=== PATIENT | female | born 1975 | race Caucasian/White ===

== ENCOUNTER 2017-09-30 12:45 | Outpatient (RCR) | payer BC, SELFPAY ==
[2017-09-23 15:43] VITALS: BP 115/71; PULSE 56; RESP 16; TEMP 36.4; BMI 38.7
--- NOTE | 2017-09-23 19:51 | PCM.WC.HP ---
(1) Laceration of left foot Status: Acute Current Visit: Yes Code(s): S91.312A - Laceration without foreign body, left foot, initial encounter (2) Cellulitis of left foot Status: Acute Current Visit: Yes Code(s): L03.116 - Cellulitis of left lower limb (3) Injury of left foot Status: Acute Current Visit: Yes Code(s): S99.922A - Unspecified injury of left foot, initial encounter (4) Arthritis Status: Chronic Current Visit: No Code(s): M19.90 - Unspecified osteoarthritis, unspecified site (5) Chronic back pain Status: Chronic Current Visit: No Code(s): M54.9 - Dorsalgia, unspecified; G89.29 - Other chronic pain (6) Hyperlipemia Status: Chronic Current Visit: No Code(s): E78.5 - Hyperlipidemia, unspecified (7) Obesity Status: Chronic Current Visit: No Code(s): E66.9 - Obesity, unspecified History of Present Illness Date of Service: 09/23/17 Chief Complaint: Left foot injury, stepped on deer antler. History of Wound: DANIEL BUCKLEY, is a 41 F who presents to the [facility] for evaluation of a laceration of her left plantar foot. She has a past medical history which is significant for that of chronic low back pain, arthritis, tobacco abuse, and hyperlipidemia. The patient states that she developed a laceration on her left bottom of her foot after stepping on a deer antler that her dog was chewing on on 09/19/2017. The patient states that the antler pierced the skin and she states that she was initially soaking her foot in Epsom salts and applying peroxide to the site with mild relief and after seeing PCP aplying triple ATB ointment on site. She has been taking Advil for the pain with mild relief. She states at rest it is a constant dull achy 4 out of 10 pain and with walking it is a 10 out of 10 pain. She does note that there is a yellow film over the wound, however denies any exudate or foul smelling. She denies any systemic complaints of fever, chills, nausea, vomiting, shortness of breath, chest pain or pressure, syncope or presyncopal episodes. She denies any other alleviating or aggravating symptoms. She saw her PCP on 09/22/2017 and an x-ray was performed which was negative, a wound culture was performed which showed staph aureus, and the patient was placed on Augmentin for cellulitis and updated on her Tdap vaccine. The patient states that the redness has improved, however the pain still persists Past Medical History Past Medical History: Chronic Problems (Last Reviewed 09/22/17 @ 10:15 by ROLY Perrin) Tobacco abuse (Chronic) Obesity (Chronic) Hyperlipemia (Chronic) Arthritis (Chronic) Chronic back pain (Chronic) Allergies/Adverse Reactions: Allergies No Known Allergies Allergy (Unverified 09/22/17 09:18) Home Medications: Ambulatory Orders Medication Instructions Recorded aspirin 81 mg chewable tablet 81 mg PO ONCE 09/22/17 ibuprofen 200 mg tablet 200 mg PO ONCE PRN 09/22/17 levofloxacin 500 mg tablet 500 mg PO Q24H 5 Days #5 tab 09/24/17 Lives: With Family Smoking Status: Current every day smoker Tobacco Use: Cigarettes Alcohol: Rare Drugs: None Review of Systems Constitutional: Denies: Chills, Fever, Weight Change Eyes: Denies: Pain, Vision Change HEENT: Denies: Difficulty Hearing, Difficulty Swallowing, Sinus Congestion Cardiovascular: Denies: Chest Pain, Palpitations Respiratory: Denies: Cough, Shortness of Breath Gastrointestinal: Denies: Diarrhea, Nausea, Vomiting Genitourinary: Denies: Dysuria, Hematuria Musculoskeletal: Reports: Foot Pain Skin: Reports: Wounds - See HPI Neurological: Reports: Numbness - Chronic numbness tingling right and left lower extremities, patient states MRI showed that she has herniated disks, Tingling Endocrine: Denies: Heat/ Cold Intolerance, Polydipsia, Polyuria Hematologic/ Lymphatic: Denies: Easy Bruising, Easy Bleeding - Physical Exam Vital Signs Temp Pulse Resp BP 97.5 F L 56 L 16 115/71 09/23/17 15:43 09/23/17 15:43 09/23/17 15:43 09/23/17 15:43 General: Alert, Oriented x3, Cooperative, No apparent distress HEENT: PERRLA, EOMI Lungs: Clear to auscultation Cardiovascular: Regular rate, Regular Rhythm Abdomen: Soft, Non Tender Extremities: No edema, Capillary Refill Less than 3 Seconds, Peripheral Pulses Normal - 1+ bilaterally, Tenderness - Left plantar foot Skin: Ulcer/ Wound - Wound present left plantar midfoot with moderate amount of slough and bioburden present Wound Measurements and Assessment WC - Nurse 1 - General Ulcer Measurement Start: 09/23/17 15:43 Freq: Status: Active Protocol: Activity Type Activity Date Activity User E-Sign Co-Sign Detail Recorded Client Recorded Date Recorded By Document 09/23/17 15:43 MW [id number] 09/23/17 16:08 MW 09/23/17 15:43 Wound Center Nurse 1 [Ulcer Assessment Protocol: LESIA.WD.LOC] #1 Left Foot arch -Combined with other wound No -Current Size (cm) - Length 1.6 -Current Size (cm) - Width 1.5 -Current Size (cm) - Depth 0.1 -Total Square Cm 2.40 -Date of Last Picture (Recall this 09/23/17 field) -Photo Taken Yes -Epithelialization Small 1-33% -Tunneling No -Undermining/Tunneling No -Circular Undermining No -Exudate Amt Small (1-33%) -Exudate Type Serosanguineous -Wound Margin Flat & Intact -Granulation Amt Large (67-100%) -Granulation Quality Red -Slough/Fibrin Yes -Necrosis Amt Small (1-33%) -Necrotic Tissue Type Adherent Slough -Structure Exposed N/A -Texture (Jocy-wound Skin Appearance) No Abnormality Assessed -Moisture (Jocy-wound Skin Appearance No Abnormality ) Assessed -Color (Jocy-wound Skin Appearance) Assessed Erythema -Temperature (Jocy-wound Skin No Abnormality Appearance) (Pt Warm) -Tenderness on Palpation (Jocy-wound Yes Skin Appearance) -Ulcer Cleansing Rinsed/ Irrigated with Saline -Anesthetic Used 5% Lidocaine Gel [Edema Assessment] -Lower Limb Edema Present No -Right Calf (cm) 42.5 -Right Ankle (cm) 23.5 -Left Calf (cm) 40.0 -Left Ankle (cm) 23.5 WC - Nurse 2 - General Ulcer CM Notes Start: 09/23/17 15:43 Freq: Status: Active Protocol: Activity Type Activity Date Activity User E-Sign Co-Sign Detail Recorded Client Recorded Date Recorded By Document 09/23/17 17:19 DV [id number] 09/23/17 17:24 DV 09/23/17 17:19 Wound Center Nurse 2 [Procedure/Treatment] #1 Left Foot arch -Time 17:22 -Correct Patient Yes -Correct Side, Site, Position Yes -Correct Procedure Yes -Procedure Performed Yes -Type of Procedure Debridement -Clinical Debridement Subcutaneous -Post Debridement Size (cm) - Length 1.0 -Post Debridement Size (cm) - Width 1.3 -Post Debridement Size (cm) - Depth 0.1 -Total Square Cm 1.30 -Wound/Ulcer Outcome Not Healed -Ulcer Cleansing Rinsed/ Irrigated with Saline -Foul Odor after Cleansing No -Bioengineered Tissue No -Cetacaine [place] No -Bleeding Controlled with Pressure -Treatment Response Procedure Tolerated Well [See Physician Procedure note for Specifics] Pain Scale: 0-10 Numeric [Pain] -Is Patient Pain Free? Yes Musculoskeletal: Tenderness - Left plantar foot Neurological: Cranial nerves II-XII grossly intact Psych/Mental Status: Normal Affect, Appropriate, Anxious, Alert and oriented to time, place, person, mood and affect Debridement Note Post-Debridement Measurements/Treatment WC - Nurse 2 - General Ulcer CM Notes Start: 09/23/17 15:43 Freq: Status: Active Protocol: Activity Type Activity Date Activity User E-Sign Co-Sign Detail Recorded Client Recorded Date Recorded By Document 09/23/17 17:19 DV [id number] 09/23/17 17:24 DV 09/23/17 17:19 Wound Center Nurse 2 #1 Left Foot arch -Time 17:22 -Correct Patient Yes -Correct Side, Site, Position Yes -Correct Procedure Yes -Procedure Performed Yes -Type of Procedure Debridement -Clinical Debridement Subcutaneous -Post Debridement Size (cm) - Length 1.0 -Post Debridement Size (cm) - Width 1.3 -Post Debridement Size (cm) - Depth 0.1 -Total Square Cm 1.30 -Wound/Ulcer Outcome Not Healed -Ulcer Cleansing Rinsed/ Irrigated with Saline -Foul Odor after Cleansing No -Bioengineered Tissue No -Cetacaine [place] No -Bleeding Controlled with Pressure -Treatment Response Procedure Tolerated Well Pain Scale: 0-10 Numeric Is Patient Pain Free? Yes Wound debrided: Left laceration plantar Laterality: Left Anesthesia Used: 4% Lidocaine Solution, 5% Lidocaine Gel Depth: Down to and including healthy tissue, in the subcutaneous layer Percentage of wound debrided: 100 Instrument Used: 5mm curette Tissue Removed: Slough, fibrin, and devitalized tissue Severity: Fat Layer Exposed Amount of bleeding with debridement: Mild Bleeding Controlled with: Pressure Patient tolerated procedure well Assessment/Plan Active Problems (Last Reviewed 09/22/17 @ 10:15 by Jose Wilson NP-C) Cellulitis of left foot (Acute) Laceration of left foot (Acute) Injury of left foot (Acute) Plan: The patient was seen and evaluated at the wound care center today. A subcutaneous debridement was performed and patient tolerated the procedure well. Reviewed documentation from PCP, x-ray was negative, culture showed staph aureus with resistance to penicillin and susceptibility to Levaquin. Given the patient's disproportionate pain level to wound, will change patient's antibiotic from Augmentin to Levaquin 500 mg daily for 5 days. Will also change wound care to Aquacel Ag silver dressings daily. Educated the patient on red flag symptoms of worsening cellulitis that would require urgent medical attention. However, cellulitis seems to be resolving at this time. Patient will follow up in 1 week. No indication for additional cultures or blood work at this time. Educated patient on the importance of increasing her dietary protein intake and decreasing her tobacco use as this delays wound healing. Ralf disclaimer Code Visit Office Visits / Consults: [id number] OV L3 Est [id number]: [id number] Mervat subq tissue 20 sq cm/<
[2017-09-30 13:04] VITALS: BP 107/63; PULSE 62; RESP 16; TEMP 37.4; BMI 38.7
--- NOTE | 2017-09-30 17:29 | PCM.WC.PN ---
(1) Laceration of left foot Status: Acute Current Visit: Yes Code(s): S91.312A - Laceration without foreign body, left foot, initial encounter (2) Cellulitis of left foot Status: Acute Current Visit: Yes Code(s): L03.116 - Cellulitis of left lower limb (3) Injury of left foot Status: Acute Current Visit: Yes Code(s): S99.922A - Unspecified injury of left foot, initial encounter (4) Arthritis Status: Chronic Current Visit: No Code(s): M19.90 - Unspecified osteoarthritis, unspecified site (5) Chronic back pain Status: Chronic Current Visit: No Code(s): M54.9 - Dorsalgia, unspecified; G89.29 - Other chronic pain (6) Hyperlipemia Status: Chronic Current Visit: No Code(s): E78.5 - Hyperlipidemia, unspecified (7) Obesity Status: Chronic Current Visit: No Code(s): E66.9 - Obesity, unspecified Type of Wound Date of Service: 09/30/17 Chief Complaint: Left foot injury, stepped on deer antler. History of Wound: DANIEL BUCKLEY, is a 41 F who presents to the [facility] for evaluation of a laceration of her left plantar foot. She has a past medical history which is significant for that of chronic low back pain, arthritis, tobacco abuse, and hyperlipidemia. The patient states that she developed a laceration on her left bottom of her foot after stepping on a deer antler that her dog was chewing on on 09/19/2017. The patient states that the antler pierced the skin and she states that she was initially soaking her foot in Epsom salts and applying peroxide to the site with mild relief and after seeing PCP aplying triple ATB ointment on site. She has been taking Advil for the pain with mild relief. She states at rest it is a constant dull achy 4 out of 10 pain and with walking it is a 10 out of 10 pain. She does note that there is a yellow film over the wound, however denies any exudate or foul smelling. She denies any systemic complaints of fever, chills, nausea, vomiting, shortness of breath, chest pain or pressure, syncope or presyncopal episodes. She denies any other alleviating or aggravating symptoms. She saw her PCP on 09/22/2017 and an x-ray was performed which was negative, a wound culture was performed which showed staph aureus, and the patient was placed on Augmentin for cellulitis and updated on her Tdap vaccine. The patient states that the redness has improved, however the pain still persists Progress of Wound: STable, improvement, patient continues to have pain at site. Though has not increased. - Physical Exam Vital Signs Temp Pulse Resp BP 99.3 F H 62 16 107/63 09/30/17 13:04 09/30/17 13:04 09/30/17 13:04 09/30/17 13:04 General: Alert, Oriented x3, Cooperative, No apparent distress HEENT: Atraumatic, Normocephalic Cardiovascular: Regular rate Extremities: No edema, Capillary Refill Less than 3 Seconds Skin: Ulcer/ Wound - left foot laceration, no signs of infection, improving Wound Measurements and Assessment WC - Nurse 1 - General Ulcer Measurement Start: 09/23/17 15:43 Freq: Status: Active Protocol: Activity Type Activity Date Activity User E-Sign Co-Sign Detail Recorded Client Recorded Date Recorded By Document 09/30/17 13:04 MW [id number] 09/30/17 13:12 MW 09/30/17 13:04 Wound Center Nurse 1 [Ulcer Assessment Protocol: WC.WD.LOC] #1 Left Foot arch -Combined with other wound No -Current Size (cm) - Length 1.5 -Current Size (cm) - Width 0.9 -Current Size (cm) - Depth 0.1 -Total Square Cm 1.35 -Photo Taken No -Epithelialization None Present -Tunneling No -Undermining/Tunneling No -Circular Undermining No -Exudate Amt Small (1-33%) -Exudate Type Serosanguineous -Wound Margin Flat & Intact -Granulation Amt None Present (0 %) -Granulation Quality N/A -Slough/Fibrin Yes -Necrosis Amt Large (67-100%) -Necrotic Tissue Type Adherent Slough -Structure Exposed N/A -Texture (Jocy-wound Skin Appearance) Assessed -Moisture (Jocy-wound Skin Appearance Assessed ) Dry/Scaly -Color (Jocy-wound Skin Appearance) No Abnormality Assessed -Temperature (Jocy-wound Skin No Abnormality Appearance) (Pt Warm) -Tenderness on Palpation (Jocy-wound No Skin Appearance) -Ulcer Cleansing Rinsed/ Irrigated with Saline -Foul Odor after Cleansing No -Anesthetic Used 5% Lidocaine Gel [Edema Assessment] -Lower Limb Edema Present No WC - Nurse 2 - General Ulcer CM Notes Start: 09/23/17 15:43 Freq: Status: Active Protocol: Activity Type Activity Date Activity User E-Sign Co-Sign Detail Recorded Client Recorded Date Recorded By Document 09/30/17 13:37 DV [id number] 09/30/17 13:40 DV 09/30/17 13:37 Wound Center Nurse 2 [Procedure/Treatment] #1 Left Foot arch -Time 13:38 -Correct Patient Yes -Correct Side, Site, Position Yes -Correct Procedure Yes -Procedure Performed Yes -Type of Procedure Debridement -Clinical Debridement Subcutaneous -Post Debridement Size (cm) - Length 0.5 -Post Debridement Size (cm) - Width 0.8 -Post Debridement Size (cm) - Depth 0.1 -Total Square Cm 0.40 -Wound/Ulcer Outcome Not Healed -Ulcer Cleansing Rinsed/ Irrigated with Saline -Foul Odor after Cleansing No -Bioengineered Tissue No -Cetacaine [place] No -Bleeding Controlled with Pressure -Treatment Response Procedure Tolerated Well [See Physician Procedure note for Specifics] Pain Scale: 0-10 Numeric [Pain] -Is Patient Pain Free? Yes Musculoskeletal: No Tenderness to Palpation of Joints or Extremities Neurological: Cranial nerves II-XII grossly intact Psych/Mental Status: Anxious, Alert and oriented to time, place, person, mood and affect Debridement Note Post-Debridement Measurements/Treatment - Nurse 2 - General Ulcer CM Notes Start: 09/23/17 15:43 Freq: Status: Active Protocol: Activity Type Activity Date Activity User E-Sign Co-Sign Detail Recorded Client Recorded Date Recorded By Document 09/23/17 17:19 DV [id number] 09/23/17 17:24 DV Document 09/30/17 13:37 DV [id number] 09/30/17 13:40 DV 09/23/17 09/30/17 17:19 13:37 Wound Center Nurse 2 #1 Left Foot arch -Time 17:22 13:38 -Correct Patient Yes Yes -Correct Side, Site, Position Yes Yes -Correct Procedure Yes Yes -Procedure Performed Yes Yes -Type of Procedure Debridement Debridement -Clinical Debridement Subcutaneous Subcutaneous -Post Debridement Size (cm) - Length 1.0 0.5 -Post Debridement Size (cm) - Width 1.3 0.8 -Post Debridement Size (cm) - Depth 0.1 0.1 -Total Square Cm 1.30 0.40 -Wound/Ulcer Outcome Not Healed Not Healed -Ulcer Cleansing Rinsed/ Rinsed/ Irrigated with Irrigated with Saline Saline -Foul Odor after Cleansing No No -Bioengineered Tissue No No -Cetacaine [place] No No -Bleeding Controlled with Pressure Pressure -Treatment Response Procedure Procedure Tolerated Well Tolerated Well Pain Scale: 0-10 Numeric Is Patient Pain Free? Yes Yes Wound debrided: Left foot laceration Laterality: Left Type of Debridement: Excisional debridement Anesthesia Used: 5% Lidocaine Gel Depth: Down to and including healthy tissue, in the subcutaneous layer Percentage of wound debrided: 100 Instrument Used: 5mm curette, #15 blade, Forceps Tissue Removed: slough and fibrin Severity: Fat Layer Exposed Amount of bleeding with debridement: Mild Bleeding Controlled with: Pressure Patient tolerated procedure well Assessment/Plan Active Problems (Last Reviewed 09/22/17 @ 10:15 by Jose Wilson NP-C) Cellulitis of left foot (Acute) Laceration of left foot (Acute) Injury of left foot (Acute) Assessment: Wound is stable and improving Plan: The patient was seen and evaluated at the wound care center today and updated on plan of care. A subcutaneous debridement was performed and patient tolerated the procedure well. Reviewed documentation from PCP, x-ray was negative, culture showed staph aureus with resistance to penicillin and susceptibility to Levaquin. Given the patient's disproportionate pain level to wound, changed patient's antibiotic from Augmentin to Levaquin 500 mg daily for 5 day, pt completed course. Given the area of necrotic tissue in the center of the wound that patient did not allow me to do pretty today due to her low pain tolerance, will change her to Santyl dressings twice daily with covered gauze. The patient states that due to her work, she is on her feet for 12 hours a day and she thinks that this is attributing to why the wound is so painful and not healing as fast. The patient's cellulitis is entirely resolved at this time. Educated the patient on red flag symptoms of worsening cellulitis that would require urgent medical attention. Patient will follow up in 1 week. No indication for additional cultures or blood work at this time. Educated patient on the importance of increasing her dietary protein intake and decreasing her tobacco use as this delays wound healing. Ralf disclaimer Code Visit [id number]-[id number]: [id number] Mervat subq tissue 20 sq cm/<
== END 2017-10-06 23:59 ==
LOC: WC 12:45
PROVIDERS: Family Provider Internal Medicine; PCP Internal Medicine; Visit Provider Nurse Practitioner Family
DX: S91.312A Laceration without foreign body, left foot, initial encounter (principal); W22.8XXA Striking against or struck by other objects, initial encounter; Y93.89 Activity, other specified; L03.116 Cellulitis of left lower limb; M19.90 Unspecified osteoarthritis, unspecified site; G89.29 Other chronic pain; E78.5 Hyperlipidemia, unspecified; M54.5 Low back pain; E66.9 Obesity, unspecified; Z68.38 Body mass index [BMI] 38.0-38.9, adult; Z71.3 Dietary counseling and surveillance; Z72.0 Tobacco use
CPT/HCPCS: 11042; 99213; G0463

== ENCOUNTER 2017-10-27 12:30 | Outpatient (RCR) | payer BC, SELFPAY ==
[2017-09-30 13:04] VITALS: BP 107/63
[2017-10-07 01:13] VITALS: PULSE 62; RESP 16; TEMP 37.4
[2017-10-07 12:49] VITALS: BP 132/66; PULSE 59; RESP 16; TEMP 37; BMI 38.7
--- NOTE | 2017-10-07 16:59 | PCM.WC.PN ---
(1) Non-healing ulcer of left foot with fat layer exposed Status: Acute Current Visit: Yes Code(s): L97.522 - Non-pressure chronic ulcer of other part of left foot with fat layer exposed (2) Hyperlipemia Status: Chronic Current Visit: No Code(s): E78.5 - Hyperlipidemia, unspecified (3) Obesity Status: Chronic Current Visit: No Code(s): E66.9 - Obesity, unspecified (4) Tobacco abuse Status: Chronic Current Visit: No Code(s): Z72.0 - Tobacco use Type of Wound Date of Service: 10/07/17 Chief Complaint: Left foot injury, stepped on deer antler. History of Wound: DANIEL BUCKLEY, is a 41 F who presents to the [facility] for evaluation of a laceration of her left plantar foot. She has a past medical history which is significant for that of chronic low back pain, arthritis, tobacco abuse, and hyperlipidemia. The patient states that she developed a laceration on her left bottom of her foot after stepping on a deer antler that her dog was chewing on on 09/19/2017. The patient states that the antler pierced the skin and she states that she was initially soaking her foot in Epsom salts and applying peroxide to the site with mild relief and after seeing PCP aplying triple ATB ointment on site. She has been taking Advil for the pain with mild relief. She states at rest it is a constant dull achy 4 out of 10 pain and with walking it is a 10 out of 10 pain. She does note that there is a yellow film over the wound, however denies any exudate or foul smelling. She denies any systemic complaints of fever, chills, nausea, vomiting, shortness of breath, chest pain or pressure, syncope or presyncopal episodes. She denies any other alleviating or aggravating symptoms. She saw her PCP on 09/22/2017 and an x-ray was performed which was negative, a wound culture was performed which showed staph aureus, and the patient was placed on Augmentin for cellulitis and updated on her Tdap vaccine. The patient states that the redness has improved, however the pain still persists Progress of Wound: stable, wound improving, pain resolved. The patient denies any fever, chills, nausea, vomiting, shortness of breath, chest pain or pressure, syncope or presyncopal episodes. Objective: anxious, refused debridement - Physical Exam Vital Signs Temp Pulse Resp BP 98.6 F 59 L 16 132/66 H 10/07/17 12:49 10/07/17 12:49 10/07/17 12:49 10/07/17 12:49 General: Alert, Oriented x3, Cooperative, No apparent distress HEENT: PERRLA, EOMI Cardiovascular: Regular rate Extremities: No clubbing, No cyanosis, No edema, Capillary Refill Less than 3 Seconds Skin: Ulcer/ Wound - Left plantar surface, ulceration present with slough present, pt refused provider to debride d/t anxiety, during exam pt did use forceps to lift the layer of slough off however and a healthy moist wound bed was present Wound Measurements and Assessment - Nurse 1 - General Ulcer Measurement Start: 10/07/17 12:49 Freq: Status: Active Protocol: Activity Type Activity Date Activity User E-Sign Co-Sign Detail Recorded Client Recorded Date Recorded By Document 10/07/17 12:49 [facility] [id number] 10/07/17 12:59 [facility] 10/07/17 12:49 Wound Center Nurse 1 [Ulcer Assessment Protocol: LESIA.WD.LOC] #1 Left Foot arch -Combined with other wound No -Current Size (cm) - Length 0.4 -Current Size (cm) - Width 1.0 -Current Size (cm) - Depth 0.1 -Total Square Cm 0.40 -Photo Taken Yes -Epithelialization None Present -Tunneling No -Undermining/Tunneling No -Exudate Amt Small (1-33%) -Exudate Type Serous -Wound Margin Distinct, Outline Attached -Granulation Amt None Present (0 %) -Slough/Fibrin Yes -Necrosis Amt Large (67-100%) -Necrotic Tissue Type Adherent Slough -Structure Exposed N/A -Texture (Jocy-wound Skin Appearance) Assessed -Moisture (Jocy-wound Skin Appearance Assessed ) -Color (Jocy-wound Skin Appearance) Assessed -Temperature (Jocy-wound Skin No Abnormality Appearance) (Pt Warm) -Tenderness on Palpation (Jocy-wound Yes Skin Appearance) -Ulcer Cleansing Rinsed/ Irrigated with Saline -Foul Odor after Cleansing No WC - Nurse 2 - General Ulcer CM Notes Start: 10/07/17 12:49 Freq: Status: Active Protocol: Activity Type Activity Date Activity User E-Sign Co-Sign Detail Recorded Client Recorded Date Recorded By Document 10/07/17 13:34 DV [id number] 10/07/17 13:36 DV 10/07/17 13:34 Wound Center Nurse 2 [Procedure/Treatment] -Time 13:35 -Correct Patient Yes -Procedure Performed No -Post Debridement Size (cm) - Length 0.8 -Post Debridement Size (cm) - Width 1.4 -Post Debridement Size (cm) - Depth 0.1 -Total Square Cm 1.12 -Wound/Ulcer Outcome Not Healed [See Physician Procedure note for Specifics] Pain Scale: 0-10 Numeric [Pain] -Is Patient Pain Free? Yes Neurological: Cranial nerves II-XII grossly intact Psych/Mental Status: Anxious, Alert and oriented to time, place, person, mood and affect Debridement Note Post-Debridement Measurements/Treatment WC - Nurse 2 - General Ulcer CM Notes Start: 10/07/17 12:49 Freq: Status: Active Protocol: Activity Type Activity Date Activity User E-Sign Co-Sign Detail Recorded Client Recorded Date Recorded By Document 10/07/17 13:34 DV [id number] 10/07/17 13:36 DV 10/07/17 13:34 Wound Center Nurse 2 #1 Left Foot arch -Time 13:35 -Correct Patient Yes -Procedure Performed No -Post Debridement Size (cm) - Length 0.8 -Post Debridement Size (cm) - Width 1.4 -Post Debridement Size (cm) - Depth 0.1 -Total Square Cm 1.12 -Wound/Ulcer Outcome Not Healed Pain Scale: 0-10 Numeric Is Patient Pain Free? Yes No debridement was completed today Assessment/Plan Active Problems (Last Reviewed 09/22/17 @ 10:15 by Jose Wilson NP-C) Non-healing ulcer of left foot with fat layer exposed (Acute) Assessment: Wound is stable and improving, pt using her sisters hydrogel d/t cost Plan: The patient was seen and evaluated at the wound care center today and updated on plan of care. Reviewed documentation from PCP, x-ray was negative, culture showed staph aureus with resistance to penicillin and susceptibility to Levaquin, pt completed course. Patient removed layer of slough in the center with forceps in the exam room, pt refused provider debridement. The patient was given a work excuse for today The patient's cellulitis is entirely resolved at this time. Educated the patient on red flag symptoms of worsening cellulitis that would require urgent medical attention. Patient will follow up in 1 week. No indication for additional cultures or blood work at this time. Educated patient on the importance of increasing her dietary protein intake and decreasing her tobacco use as this delays wound healing. She will continue using hydrogel and gauze to the area. RTC in 1 week. Ralf disclaimer Code Visit Office Visits / Consults: [id number] OV L3 Est
--- NOTE | 2017-10-07 17:09 | PN.PCM_ITS ---
(1) Non-healing ulcer of left foot with fat layer exposed Status: Acute Current Visit: Yes Code(s): L97.522 - Non-pressure chronic ulcer of other part of left foot with fat layer exposed (2) Hyperlipemia Status: Chronic Current Visit: No Code(s): E78.5 - Hyperlipidemia, unspecified (3) Obesity Status: Chronic Current Visit: No Code(s): E66.9 - Obesity, unspecified (4) Tobacco abuse Status: Chronic Current Visit: No Code(s): Z72.0 - Tobacco use Type of Wound Date of Service: 10/07/17 Chief Complaint: Left foot injury, stepped on deer antler. History of Wound: DANIEL BUCKLEY, is a 41 F who presents to the [facility] for evaluation of a laceration of her left plantar foot. She has a past medical history which is significant for that of chronic low back pain, arthritis, tobacco abuse, and hyperlipidemia. The patient states that she developed a laceration on her left bottom of her foot after stepping on a deer antler that her dog was chewing on on 09/19/2017. The patient states that the antler pierced the skin and she states that she was initially soaking her foot in Epsom salts and applying peroxide to the site with mild relief and after seeing PCP aplying triple ATB ointment on site. She has been taking Advil for the pain with mild relief. She states at rest it is a constant dull achy 4 out of 10 pain and with walking it is a 10 out of 10 pain. She does note that there is a yellow film over the wound, however denies any exudate or foul smelling. She denies any systemic complaints of fever, chills, nausea, vomiting, shortness of breath, chest pain or pressure, syncope or presyncopal episodes. She denies any other alleviating or aggravating symptoms. She saw her PCP on 09/22/2017 and an x-ray was performed which was negative, a wound culture was performed which showed staph aureus, and the patient was placed on Augmentin for cellulitis and updated on her Tdap vaccine. The patient states that the redness has improved, however the pain still persists Progress of Wound: stable, wound improving, pain resolved. The patient denies any fever, chills, nausea, vomiting, shortness of breath, chest pain or pressure , syncope or presyncopal episodes. Objective: anxious, refused debridement - Physical Exam Vital Signs Temp Pulse Resp BP 98.6 F 59 L 16 132/66 H 10/07/17 12:49 10/07/17 12:49 10/07/17 12:49 10/07/17 12:49 General: Alert, Oriented x3, Cooperative, No apparent distress HEENT: PERRLA, EOMI Cardiovascular: Regular rate Extremities: No clubbing, No cyanosis, No edema, Capillary Refill Less than 3 Seconds Skin: Ulcer/ Wound - Left plantar surface, ulceration present with slough present, pt refused provider to debride d/t anxiety, during exam pt did use forceps to lift the layer of slough off however and a healthy moist wound bed was present Wound Measurements and Assessment - Nurse 1 - General Ulcer Measurement Start: 10/07/17 12:49 Freq: Status: Active Protocol: Activity Type Activity Date Activity User E-Sign Co-Sign Detail Recorded Client Recorded Date Recorded By Document 10/07/17 12:49 [facility] [id number] 10/07/17 12:59 [facility] 10/07/17 12:49 Wound Center Nurse 1 [Ulcer Assessment Protocol: LESIA.WD.LOC] #1 Left Foot arch -Combined with other wound No -Current Size (cm) - Length 0.4 -Current Size (cm) - Width 1.0 -Current Size (cm) - Depth 0.1 -Total Square Cm 0.40 -Photo Taken Yes -Epithelialization None Present -Tunneling No -Undermining/Tunneling No -Exudate Amt Small (1-33%) -Exudate Type Serous -Wound Margin Distinct, Outline Attached -Granulation Amt None Present (0 %) -Slough/Fibrin Yes -Necrosis Amt Large (67-100%) -Necrotic Tissue Type Adherent Slough -Structure Exposed N/A -Texture (Jocy-wound Skin Appearance) Assessed -Moisture (Jocy-wound Skin Appearance Assessed ) -Color (Jocy-wound Skin Appearance) Assessed -Temperature (Jocy-wound Skin No Abnormality Appearance) (Pt Warm) -Tenderness on Palpation (Jocy-wound Yes Skin Appearance) -Ulcer Cleansing Rinsed/ Irrigated with Saline -Foul Odor after Cleansing No WC - Nurse 2 - General Ulcer CM Notes Start: 10/07/17 12:49 Freq: Status: Active Protocol: Activity Type Activity Date Activity User E-Sign Co-Sign Detail Recorded Client Recorded Date Recorded By Document 10/07/17 13:34 DV [id number] 10/07/17 13:36 DV 10/07/17 13:34 Wound Center Nurse 2 [Procedure/Treatment] -Time 13:35 -Correct Patient Yes -Procedure Performed No -Post Debridement Size (cm) - Length 0.8 -Post Debridement Size (cm) - Width 1.4 -Post Debridement Size (cm) - Depth 0.1 -Total Square Cm 1.12 -Wound/Ulcer Outcome Not Healed [See Physician Procedure note for Specifics] Pain Scale: 0-10 Numeric [Pain] -Is Patient Pain Free? Yes Neurological: Cranial nerves II-XII grossly intact Psych/Mental Status: Anxious, Alert and oriented to time, place, person, mood and affect Debridement Note Post-Debridement Measurements/Treatment WC - Nurse 2 - General Ulcer CM Notes Start: 10/07/17 12:49 Freq: Status: Active Protocol: Activity Type Activity Date Activity User E-Sign Co-Sign Detail Recorded Client Recorded Date Recorded By Document 10/07/17 13:34 DV [id number] 10/07/17 13:36 DV 10/07/17 13:34 Wound Center Nurse 2 #1 Left Foot arch -Time 13:35 -Correct Patient Yes -Procedure Performed No -Post Debridement Size (cm) - Length 0.8 -Post Debridement Size (cm) - Width 1.4 -Post Debridement Size (cm) - Depth 0.1 -Total Square Cm 1.12 -Wound/Ulcer Outcome Not Healed Pain Scale: 0-10 Numeric Is Patient Pain Free? Yes No debridement was completed today Assessment/Plan Active Problems (Last Reviewed 09/22/17 @ 10:15 by Jose Wilson NP-C) Non-healing ulcer of left foot with fat layer exposed (Acute) Assessment: Wound is stable and improving, pt using her sisters hydrogel d/t cost Plan: The patient was seen and evaluated at the wound care center today and updated on plan of care. Reviewed documentation from PCP, x-ray was negative, culture showed staph aureus with resistance to penicillin and susceptibility to Levaquin, pt completed course. Patient removed layer of slough in the center with forceps in the exam room, pt refused provider debridement. The patient was given a work excuse for today The patient's cellulitis is entirely resolved at this time. Educated the patient on red flag symptoms of worsening cellulitis that would require urgent medical attention. Patient will follow up in 1 week. No indication for additional cultures or blood work at this time. Educated patient on the importance of increasing her dietary protein intake and decreasing her tobacco use as this delays wound healing. She will continue using hydrogel and gauze to the area. RTC in 1 week. Ralf disclaimer Code Visit Office Visits / Consults: [id number] OV L3 Est
[2017-10-20 08:18] VITALS: BP 106/60; PULSE 88; RESP 18; TEMP 36.3; BMI 38.7
--- NOTE | 2017-10-20 09:31 | PCM.WC.PN ---
(1) Non-healing ulcer of left foot with fat layer exposed Status: Acute Current Visit: Yes Code(s): L97.522 - Non-pressure chronic ulcer of other part of left foot with fat layer exposed (2) Injury of left foot Status: Acute Current Visit: No Code(s): S99.922A - Unspecified injury of left foot, initial encounter (3) Laceration of left foot Status: Acute Current Visit: No Code(s): S91.312A - Laceration without foreign body, left foot, initial encounter Type of Wound Date of Service: 10/20/17 Chief Complaint: Left foot injury, stepped on deer antler. History of Wound: DANIEL BUCKLEY, is a 41 F who presents to the [facility] for evaluation of a laceration of her left plantar foot. She has a past medical history which is significant for that of chronic low back pain, arthritis, tobacco abuse, and hyperlipidemia. The patient states that she developed a laceration on her left bottom of her foot after stepping on a deer antler that her dog was chewing on on 09/19/2017. The patient states that the antler pierced the skin and she states that she was initially soaking her foot in Epsom salts and applying peroxide to the site with mild relief and after seeing PCP aplying triple ATB ointment on site. She has been taking Advil for the pain with mild relief. She states at rest it is a constant dull achy 4 out of 10 pain and with walking it is a 10 out of 10 pain. She does note that there is a yellow film over the wound, however denies any exudate or foul smelling. She denies any systemic complaints of fever, chills, nausea, vomiting, shortness of breath, chest pain or pressure, syncope or presyncopal episodes. She denies any other alleviating or aggravating symptoms. She saw her PCP on 09/22/2017 and an x-ray was performed which was negative, a wound culture was performed which showed staph aureus, and the patient was placed on Augmentin for cellulitis and updated on her Tdap vaccine. The patient states that the redness has improved, however the pain still persists Progress of Wound: Improving. - Physical Exam Vital Signs Temp Pulse Resp BP 97.3 F L 88 18 106/60 10/20/17 08:18 10/20/17 08:18 10/20/17 08:18 10/20/17 08:18 General: Alert, Oriented x3, Cooperative, No apparent distress HEENT: Atraumatic, Normocephalic Oral: Moist Mucosa Neck: Supple Lungs: Normal air movement Cardiovascular: Regular rate Skin: Ulcer/ Wound Wound Measurements and Assessment WC - Nurse 1 - General Ulcer Measurement Start: 10/07/17 12:49 Freq: Status: Active Protocol: Activity Type Activity Date Activity User E-Sign Co-Sign Detail Recorded Client Recorded Date Recorded By Document 10/20/17 08:18 RB [id number] 10/20/17 08:30 RB 10/20/17 08:18 Wound Center Nurse 1 [Ulcer Assessment Protocol: LESIA.WD.LOC] #1 Left Foot arch -Combined with other wound No -Current Size (cm) - Length 0.1 -Current Size (cm) - Width 0.9 -Current Size (cm) - Depth 0.1 -Total Square Cm 0.09 -Photo Taken No -Epithelialization Small 1-33% -Tunneling No -Undermining/Tunneling No -Circular Undermining No -Classification - Thickness Full Thickness without Exposed Support Structure -Exudate Amt Small (1-33%) -Exudate Type Serosanguineous -Wound Margin Distinct, Outline Attached -Granulation Amt Medium (34-66%) -Granulation Quality [place] -Slough/Fibrin Yes -Necrosis Amt Small (1-33%) -Necrotic Tissue Type Adherent Slough -Structure Exposed N/A -Texture (Jocy-wound Skin Appearance) Assessed -Moisture (Jocy-wound Skin Appearance Assessed ) -Color (Jocy-wound Skin Appearance) Assessed -Temperature (Jocy-wound Skin No Abnormality Appearance) (Pt Warm) -Tenderness on Palpation (Jocy-wound No Skin Appearance) -Ulcer Cleansing Rinsed/ Irrigated with Saline -Foul Odor after Cleansing No -Anesthetic Used 5% Lidocaine Gel WC - Nurse 2 - General Ulcer CM Notes Start: 10/07/17 12:49 Freq: Status: Active Protocol: Activity Type Activity Date Activity User E-Sign Co-Sign Detail Recorded Client Recorded Date Recorded By Document 10/20/17 09:04 DV [id number] 10/20/17 09:09 DV 10/20/17 09:04 Wound Center Nurse 2 [Procedure/Treatment] -Time 09:07 -Correct Patient Yes -Correct Side, Site, Position Yes -Correct Procedure Yes -Procedure Performed Yes -Type of Procedure Debridement -Clinical Debridement Subcutaneous -Post Debridement Size (cm) - Length 0.1 -Post Debridement Size (cm) - Width 0.7 -Post Debridement Size (cm) - Depth 0.1 -Total Square Cm 0.07 -Wound/Ulcer Outcome Not Healed -Ulcer Cleansing Rinsed/ Irrigated with Saline -Foul Odor after Cleansing No -Bioengineered Tissue No -Bleeding Controlled with Pressure -Treatment Response Procedure Tolerated Well [See Physician Procedure note for Specifics] Pain Scale: 0-10 Numeric [Pain] -Is Patient Pain Free? Yes Musculoskeletal: No Muscle Wasting Neurological: Cranial nerves II-XII grossly intact Psych/Mental Status: Normal Affect Debridement Note Post-Debridement Measurements/Treatment WC - Nurse 2 - General Ulcer CM Notes Start: 10/07/17 12:49 Freq: Status: Active Protocol: Activity Type Activity Date Activity User E-Sign Co-Sign Detail Recorded Client Recorded Date Recorded By Document 10/07/17 13:34 DV [id number] 10/07/17 13:36 DV Document 10/20/17 09:04 DV [id number] 10/20/17 09:09 DV 10/07/17 10/20/17 13:34 09:04 Wound Center Nurse 2 #1 Left Foot arch -Time 13:35 09:07 -Correct Patient Yes Yes -Correct Side, Site, Position Yes -Correct Procedure Yes -Procedure Performed No Yes -Type of Procedure Debridement -Clinical Debridement Subcutaneous -Post Debridement Size (cm) - Length 0.8 0.1 -Post Debridement Size (cm) - Width 1.4 0.7 -Post Debridement Size (cm) - Depth 0.1 0.1 -Total Square Cm 1.12 0.07 -Wound/Ulcer Outcome Not Healed Not Healed -Ulcer Cleansing Rinsed/ Irrigated with Saline -Foul Odor after Cleansing No -Bioengineered Tissue No -Bleeding Controlled with Pressure -Treatment Response Procedure Tolerated Well Pain Scale: 0-10 Numeric Is Patient Pain Free? Yes Yes Wound debrided: Left foot plantar ulcer Wound Grade/Stage: Stage II Type of Debridement: Excisional debridement Anesthesia Used: 5% Lidocaine Gel Depth: Down to and including healthy tissue Percentage of wound debrided: 100 Instrument Used: 7mm curette Tissue Removed: Slough Severity: Limited To Skin Breakdown Amount of bleeding with debridement: Mild Bleeding Controlled with: Pressure Patient tolerated procedure well Assessment/Plan Active Problems (Last Reviewed 09/22/17 @ 10:15 by Jose Wilson NP-C) Non-healing ulcer of left foot with fat layer exposed (Acute) Assessment: Left Plantar Foot Ulcer. Improving. Plan: Wound debridement done today. Procedure was well tolerated. Wound has shown good progress. Will switch dressing over to moistened promogram applied daily. Cover with guaze. Continue increased protein intake. Off load area. Follow up in 1 week. This note was generated with [employer] dictation software. It may contain incorrect words, spelling, and punctuation that were not noted in checking the note before signing.
--- NOTE | 2017-10-20 09:41 | PN.PCM_ITS ---
(1) Non-healing ulcer of left foot with fat layer exposed Status: Acute Current Visit: Yes Code(s): L97.522 - Non-pressure chronic ulcer of other part of left foot with fat layer exposed (2) Injury of left foot Status: Acute Current Visit: No Code(s): S99.922A - Unspecified injury of left foot, initial encounter (3) Laceration of left foot Status: Acute Current Visit: No Code(s): S91.312A - Laceration without foreign body, left foot, initial encounter Type of Wound Date of Service: 10/20/17 Chief Complaint: Left foot injury, stepped on deer antler. History of Wound: DANIEL BUCKLEY, is a 41 F who presents to the [facility] for evaluation of a laceration of her left plantar foot. She has a past medical history which is significant for that of chronic low back pain, arthritis, tobacco abuse, and hyperlipidemia. The patient states that she developed a laceration on her left bottom of her foot after stepping on a deer antler that her dog was chewing on on 09/19/2017. The patient states that the antler pierced the skin and she states that she was initially soaking her foot in Epsom salts and applying peroxide to the site with mild relief and after seeing PCP aplying triple ATB ointment on site. She has been taking Advil for the pain with mild relief. She states at rest it is a constant dull achy 4 out of 10 pain and with walking it is a 10 out of 10 pain. She does note that there is a yellow film over the wound, however denies any exudate or foul smelling. She denies any systemic complaints of fever, chills, nausea, vomiting, shortness of breath, chest pain or pressure, syncope or presyncopal episodes. She denies any other alleviating or aggravating symptoms. She saw her PCP on 09/22/2017 and an x-ray was performed which was negative, a wound culture was performed which showed staph aureus, and the patient was placed on Augmentin for cellulitis and updated on her Tdap vaccine. The patient states that the redness has improved, however the pain still persists Progress of Wound: Improving. - Physical Exam Vital Signs Temp Pulse Resp BP 97.3 F L 88 18 106/60 10/20/17 08:18 10/20/17 08:18 10/20/17 08:18 10/20/17 08:18 General: Alert, Oriented x3, Cooperative, No apparent distress HEENT: Atraumatic, Normocephalic Oral: Moist Mucosa Neck: Supple Lungs: Normal air movement Cardiovascular: Regular rate Skin: Ulcer/ Wound Wound Measurements and Assessment WC - Nurse 1 - General Ulcer Measurement Start: 10/07/17 12:49 Freq: Status: Active Protocol: Activity Type Activity Date Activity User E-Sign Co-Sign Detail Recorded Client Recorded Date Recorded By Document 10/20/17 08:18 RB [id number] 10/20/17 08:30 RB 10/20/17 08:18 Wound Center Nurse 1 [Ulcer Assessment Protocol: LESIA.WD.LOC] #1 Left Foot arch -Combined with other wound No -Current Size (cm) - Length 0.1 -Current Size (cm) - Width 0.9 -Current Size (cm) - Depth 0.1 -Total Square Cm 0.09 -Photo Taken No -Epithelialization Small 1-33% -Tunneling No -Undermining/Tunneling No -Circular Undermining No -Classification - Thickness Full Thickness without Exposed Support Structure -Exudate Amt Small (1-33%) -Exudate Type Serosanguineous -Wound Margin Distinct, Outline Attached -Granulation Amt Medium (34-66%) -Granulation Quality [place] -Slough/Fibrin Yes -Necrosis Amt Small (1-33%) -Necrotic Tissue Type Adherent Slough -Structure Exposed N/A -Texture (Jocy-wound Skin Appearance) Assessed -Moisture (Jocy-wound Skin Appearance Assessed ) -Color (Jocy-wound Skin Appearance) Assessed -Temperature (Jocy-wound Skin No Abnormality Appearance) (Pt Warm) -Tenderness on Palpation (Jocy-wound No Skin Appearance) -Ulcer Cleansing Rinsed/ Irrigated with Saline -Foul Odor after Cleansing No -Anesthetic Used 5% Lidocaine Gel WC - Nurse 2 - General Ulcer CM Notes Start: 10/07/17 12:49 Freq: Status: Active Protocol: Activity Type Activity Date Activity User E-Sign Co-Sign Detail Recorded Client Recorded Date Recorded By Document 10/20/17 09:04 DV [id number] 10/20/17 09:09 DV 10/20/17 09:04 Wound Center Nurse 2 [Procedure/Treatment] -Time 09:07 -Correct Patient Yes -Correct Side, Site, Position Yes -Correct Procedure Yes -Procedure Performed Yes -Type of Procedure Debridement -Clinical Debridement Subcutaneous -Post Debridement Size (cm) - Length 0.1 -Post Debridement Size (cm) - Width 0.7 -Post Debridement Size (cm) - Depth 0.1 -Total Square Cm 0.07 -Wound/Ulcer Outcome Not Healed -Ulcer Cleansing Rinsed/ Irrigated with Saline -Foul Odor after Cleansing No -Bioengineered Tissue No -Bleeding Controlled with Pressure -Treatment Response Procedure Tolerated Well [See Physician Procedure note for Specifics] Pain Scale: 0-10 Numeric [Pain] -Is Patient Pain Free? Yes Musculoskeletal: No Muscle Wasting Neurological: Cranial nerves II-XII grossly intact Psych/Mental Status: Normal Affect Debridement Note Post-Debridement Measurements/Treatment WC - Nurse 2 - General Ulcer CM Notes Start: 10/07/17 12:49 Freq: Status: Active Protocol: Activity Type Activity Date Activity User E-Sign Co-Sign Detail Recorded Client Recorded Date Recorded By Document 10/07/17 13:34 DV [id number] 10/07/17 13:36 DV Document 10/20/17 09:04 DV [id number] 10/20/17 09:09 DV 10/07/17 10/20/17 13:34 09:04 Wound Center Nurse 2 #1 Left Foot arch -Time 13:35 09:07 -Correct Patient Yes Yes -Correct Side, Site, Position Yes -Correct Procedure Yes -Procedure Performed No Yes -Type of Procedure Debridement -Clinical Debridement Subcutaneous -Post Debridement Size (cm) - Length 0.8 0.1 -Post Debridement Size (cm) - Width 1.4 0.7 -Post Debridement Size (cm) - Depth 0.1 0.1 -Total Square Cm 1.12 0.07 -Wound/Ulcer Outcome Not Healed Not Healed -Ulcer Cleansing Rinsed/ Irrigated with Saline -Foul Odor after Cleansing No -Bioengineered Tissue No -Bleeding Controlled with Pressure -Treatment Response Procedure Tolerated Well Pain Scale: 0-10 Numeric Is Patient Pain Free? Yes Yes Wound debrided: Left foot plantar ulcer Wound Grade/Stage: Stage II Type of Debridement: Excisional debridement Anesthesia Used: 5% Lidocaine Gel Depth: Down to and including healthy tissue Percentage of wound debrided: 100 Instrument Used: 7mm curette Tissue Removed: Slough Severity: Limited To Skin Breakdown Amount of bleeding with debridement: Mild Bleeding Controlled with: Pressure Patient tolerated procedure well Assessment/Plan Active Problems (Last Reviewed 09/22/17 @ 10:15 by Jose Wilson NP-C) Non-healing ulcer of left foot with fat layer exposed (Acute) Assessment: Left Plantar Foot Ulcer. Improving. Plan: Wound debridement done today. Procedure was well tolerated. Wound has shown good progress. Will switch dressing over to moistened promogram applied daily. Cover with guaze. Continue increased protein intake. Off load area. Follow up in 1 week. This note was generated with [employer] dictation software. It may contain incorrect words, spelling, and punctuation that were not noted in checking the note before signing.
[2017-10-27 12:34] VITALS: BP 110/70; PULSE 78; RESP 20; TEMP 35.8; BMI 38.7
--- NOTE | 2017-10-27 18:36 | PCM.WC.PN ---
(1) Non-healing ulcer of left foot with fat layer exposed Status: Acute Current Visit: Yes Code(s): L97.522 - Non-pressure chronic ulcer of other part of left foot with fat layer exposed (2) Injury of left foot Status: Acute Current Visit: No Code(s): S99.922A - Unspecified injury of left foot, initial encounter (3) Laceration of left foot Status: Acute Current Visit: No Code(s): S91.312A - Laceration without foreign body, left foot, initial encounter Type of Wound Date of Service: 10/27/17 Chief Complaint: Left foot injury, stepped on deer antler. History of Wound: DANIEL BUCKLEY, is a 41 F who presents to the [facility] for evaluation of a laceration of her left plantar foot. She has a past medical history which is significant for that of chronic low back pain, arthritis, tobacco abuse, and hyperlipidemia. The patient states that she developed a laceration on her left bottom of her foot after stepping on a deer antler that her dog was chewing on on 09/19/2017. The patient states that the antler pierced the skin and she states that she was initially soaking her foot in Epsom salts and applying peroxide to the site with mild relief and after seeing PCP aplying triple ATB ointment on site. She has been taking Advil for the pain with mild relief. She states at rest it is a constant dull achy 4 out of 10 pain and with walking it is a 10 out of 10 pain. She does note that there is a yellow film over the wound, however denies any exudate or foul smelling. She denies any systemic complaints of fever, chills, nausea, vomiting, shortness of breath, chest pain or pressure, syncope or presyncopal episodes. She denies any other alleviating or aggravating symptoms. She saw her PCP on 09/22/2017 and an x-ray was performed which was negative, a wound culture was performed which showed staph aureus, and the patient was placed on Augmentin for cellulitis and updated on her Tdap vaccine. The patient states that the redness has improved, however the pain still persists Progress of Wound: Healed. - Physical Exam Vital Signs Temp Pulse Resp BP 96.5 F L 78 20 H 110/70 10/27/17 12:34 10/27/17 12:34 02/21/18 12:34 10/27/17 12:34 General: Alert, Oriented x3, Cooperative, No apparent distress HEENT: Atraumatic, Normocephalic Oral: Moist Mucosa Neck: Supple Lungs: Normal air movement Cardiovascular: Regular rate Extremities: No cyanosis, No edema Wound Measurements and Assessment WC - Nurse 1 - General Ulcer Measurement Start: 10/07/17 12:49 Freq: Status: Active Protocol: Activity Type Activity Date Activity User E-Sign Co-Sign Detail Recorded Client Recorded Date Recorded By Document 10/27/17 12:34 RB [id number] 10/27/17 12:44 RB 10/27/17 12:34 Wound Center Nurse 1 [Ulcer Assessment] #1 Left Foot arch -Combined with other wound No -Current Size (cm) - Length 0.1 -Current Size (cm) - Width 0.1 -Current Size (cm) - Depth 0.1 -Total Square Cm 0.01 -Photo Taken Yes -Epithelialization Large 67-100% -Tunneling No -Undermining/Tunneling No -Circular Undermining No -Classification - Thickness Full Thickness without Exposed Support Structure -Exudate Amt None Present (0 %) -Wound Margin Distinct, Outline Attached -Granulation Amt Large (67-100%) -Granulation Quality [place] -Slough/Fibrin No -Structure Exposed N/A -Texture (Jocy-wound Skin Appearance) Assessed -Moisture (Jocy-wound Skin Appearance Assessed ) Dry/Scaly -Color (Jocy-wound Skin Appearance) Assessed -Temperature (Jocy-wound Skin No Abnormality Appearance) (Pt Warm) -Tenderness on Palpation (Jocy-wound No Skin Appearance) -Ulcer Cleansing Rinsed/ Irrigated with Saline -Foul Odor after Cleansing No -Anesthetic Used 5% Lidocaine Gel [Edema Assessment] -Lower Limb Edema Present Yes -Left Calf (cm) 43.5 -Left Ankle (cm) 25 Musculoskeletal: No Muscle Wasting Neurological: Cranial nerves II-XII grossly intact Psych/Mental Status: Normal Affect Debridement Note Post-Debridement Measurements/Treatment WC - Nurse 2 - General Ulcer CM Notes Start: 10/07/17 12:49 Freq: Status: Active Protocol: Activity Type Activity Date Activity User E-Sign Co-Sign Detail Recorded Client Recorded Date Recorded By Document 10/07/17 13:34 DV [id number] 10/07/17 13:36 DV Document 10/20/17 09:04 DV [id number] 10/20/17 09:09 DV 10/07/17 10/20/17 13:34 09:04 Wound Center Nurse 2 #1 Left Foot arch -Time 13:35 09:07 -Correct Patient Yes Yes -Correct Side, Site, Position Yes -Correct Procedure Yes -Procedure Performed No Yes -Type of Procedure Debridement -Clinical Debridement Subcutaneous -Post Debridement Size (cm) - Length 0.8 0.1 -Post Debridement Size (cm) - Width 1.4 0.7 -Post Debridement Size (cm) - Depth 0.1 0.1 -Total Square Cm 1.12 0.07 -Wound/Ulcer Outcome Not Healed Not Healed -Ulcer Cleansing Rinsed/ Irrigated with Saline -Foul Odor after Cleansing No -Bioengineered Tissue No -Bleeding Controlled with Pressure -Treatment Response Procedure Tolerated Well Pain Scale: 0-10 Numeric Is Patient Pain Free? Yes Yes No debridement was completed today Assessment/Plan Active Problems (Last Reviewed 09/22/17 @ 10:15 by Jose Wilson NP-C) Non-healing ulcer of left foot with fat layer exposed (Acute) Assessment: Left Plantar Foot Ulcer. Improving. Plan: Wound has healed. Area still delicate so patient advised to wear protective foot wear always. Guaze covering to the area for the next week. Continue increased protein intake. Continue off loading for about 2 weeks. Discharged from the wound clinic. advised to call with questions or concerns. This note was generated with [employer] software. It may contain incorrect words, spelling, and punctuation that were not noted in checking the note before signing.
--- NOTE | 2017-10-27 18:40 | PN.PCM_ITS ---
(1) Non-healing ulcer of left foot with fat layer exposed Status: Acute Current Visit: Yes Code(s): L97.522 - Non-pressure chronic ulcer of other part of left foot with fat layer exposed (2) Injury of left foot Status: Acute Current Visit: No Code(s): S99.922A - Unspecified injury of left foot, initial encounter (3) Laceration of left foot Status: Acute Current Visit: No Code(s): S91.312A - Laceration without foreign body, left foot, initial encounter Type of Wound Date of Service: 10/27/17 Chief Complaint: Left foot injury, stepped on deer antler. History of Wound: DANIEL BUCKLEY, is a 41 F who presents to the [facility] for evaluation of a laceration of her left plantar foot. She has a past medical history which is significant for that of chronic low back pain, arthritis, tobacco abuse, and hyperlipidemia. The patient states that she developed a laceration on her left bottom of her foot after stepping on a deer antler that her dog was chewing on on 09/19/2017. The patient states that the antler pierced the skin and she states that she was initially soaking her foot in Epsom salts and applying peroxide to the site with mild relief and after seeing PCP aplying triple ATB ointment on site. She has been taking Advil for the pain with mild relief. She states at rest it is a constant dull achy 4 out of 10 pain and with walking it is a 10 out of 10 pain. She does note that there is a yellow film over the wound, however denies any exudate or foul smelling. She denies any systemic complaints of fever, chills, nausea, vomiting, shortness of breath, chest pain or pressure, syncope or presyncopal episodes. She denies any other alleviating or aggravating symptoms. She saw her PCP on 09/22/2017 and an x-ray was performed which was negative, a wound culture was performed which showed staph aureus, and the patient was placed on Augmentin for cellulitis and updated on her Tdap vaccine. The patient states that the redness has improved, however the pain still persists Progress of Wound: Healed. - Physical Exam Vital Signs Temp Pulse Resp BP 96.5 F L 78 20 H 110/70 10/27/17 12:34 10/27/17 12:34 02/21/18 12:34 10/27/17 12:34 General: Alert, Oriented x3, Cooperative, No apparent distress HEENT: Atraumatic, Normocephalic Oral: Moist Mucosa Neck: Supple Lungs: Normal air movement Cardiovascular: Regular rate Extremities: No cyanosis, No edema Wound Measurements and Assessment WC - Nurse 1 - General Ulcer Measurement Start: 10/07/17 12:49 Freq: Status: Active Protocol: Activity Type Activity Date Activity User E-Sign Co-Sign Detail Recorded Client Recorded Date Recorded By Document 10/27/17 12:34 RB [id number] 10/27/17 12:44 RB 10/27/17 12:34 Wound Center Nurse 1 [Ulcer Assessment] #1 Left Foot arch -Combined with other wound No -Current Size (cm) - Length 0.1 -Current Size (cm) - Width 0.1 -Current Size (cm) - Depth 0.1 -Total Square Cm 0.01 -Photo Taken Yes -Epithelialization Large 67-100% -Tunneling No -Undermining/Tunneling No -Circular Undermining No -Classification - Thickness Full Thickness without Exposed Support Structure -Exudate Amt None Present (0 %) -Wound Margin Distinct, Outline Attached -Granulation Amt Large (67-100%) -Granulation Quality [place] -Slough/Fibrin No -Structure Exposed N/A -Texture (Jocy-wound Skin Appearance) Assessed -Moisture (Jocy-wound Skin Appearance Assessed ) Dry/Scaly -Color (Jocy-wound Skin Appearance) Assessed -Temperature (Jocy-wound Skin No Abnormality Appearance) (Pt Warm) -Tenderness on Palpation (Jocy-wound No Skin Appearance) -Ulcer Cleansing Rinsed/ Irrigated with Saline -Foul Odor after Cleansing No -Anesthetic Used 5% Lidocaine Gel [Edema Assessment] -Lower Limb Edema Present Yes -Left Calf (cm) 43.5 -Left Ankle (cm) 25 Musculoskeletal: No Muscle Wasting Neurological: Cranial nerves II-XII grossly intact Psych/Mental Status: Normal Affect Debridement Note Post-Debridement Measurements/Treatment WC - Nurse 2 - General Ulcer CM Notes Start: 10/07/17 12:49 Freq: Status: Active Protocol: Activity Type Activity Date Activity User E-Sign Co-Sign Detail Recorded Client Recorded Date Recorded By Document 10/07/17 13:34 DV [id number] 10/07/17 13:36 DV Document 10/20/17 09:04 DV [id number] 10/20/17 09:09 DV 10/07/17 10/20/17 13:34 09:04 Wound Center Nurse 2 #1 Left Foot arch -Time 13:35 09:07 -Correct Patient Yes Yes -Correct Side, Site, Position Yes -Correct Procedure Yes -Procedure Performed No Yes -Type of Procedure Debridement -Clinical Debridement Subcutaneous -Post Debridement Size (cm) - Length 0.8 0.1 -Post Debridement Size (cm) - Width 1.4 0.7 -Post Debridement Size (cm) - Depth 0.1 0.1 -Total Square Cm 1.12 0.07 -Wound/Ulcer Outcome Not Healed Not Healed -Ulcer Cleansing Rinsed/ Irrigated with Saline -Foul Odor after Cleansing No -Bioengineered Tissue No -Bleeding Controlled with Pressure -Treatment Response Procedure Tolerated Well Pain Scale: 0-10 Numeric Is Patient Pain Free? Yes Yes No debridement was completed today Assessment/Plan Active Problems (Last Reviewed 09/22/17 @ 10:15 by Jose Wilson NP-C) Non-healing ulcer of left foot with fat layer exposed (Acute) Assessment: Left Plantar Foot Ulcer. Improving. Plan: Wound has healed. Area still delicate so patient advised to wear protective foot wear always. Guaze covering to the area for the next week. Continue increased protein intake. Continue off loading for about 2 weeks. Discharged from the wound clinic. advised to call with questions or concerns. This note was generated with [employer] software. It may contain incorrect words, spelling, and punctuation that were not noted in checking the note before signing.
== END 2017-11-03 23:59 ==
LOC: WC 12:30
PROVIDERS: Family Provider Internal Medicine; PCP Internal Medicine; Visit Provider Internal Medicine
DX: S91.312A Laceration without foreign body, left foot, initial encounter (principal); W22.8XXA Striking against or struck by other objects, initial encounter; E78.5 Hyperlipidemia, unspecified; E66.9 Obesity, unspecified; Z68.38 Body mass index [BMI] 38.0-38.9, adult; Z71.3 Dietary counseling and surveillance; M19.90 Unspecified osteoarthritis, unspecified site
CPT/HCPCS: 11042; 99212; G0463

== ENCOUNTER 2021-11-18 12:18 | Outpatient (CLI) | payer BC, SELFPAY ==
--- NOTE | 2021-11-18 12:22 | RAD_ITS ---
CLINICAL HISTORY: Female, 46 years old. With lumbar stenosis PROCEDURE: Fluoroscopic guided myelogram. CONSENT: Obtained prior to procedure. SEDATION: None FLUOROSCOPY TIME (if supplied): (26 seconds). IMAGES: A single frontal view images of the lumbar spine with for exposure was obtained prior to procedure. A single intraoperative fluoroscopic spot images was submitted for evaluation. A postoperative full exposure single frontal view of the lumbar spine was obtained immediately post procedure. TECHNIQUE: (All elements of maximal sterile barrier technique followed, including US elements as applicable) A site was selected between the L3 and L4 vertebral bodies in the skin surface was marked. The skin surface was prepared with sterile technique. The area was anesthetized locally with 2% LIDOCAINE. A 22-gauge spinal needle was then advanced into the spinal canal with periodic fluoroscopic guidance. The inner stylet of the needle was removed and free-flowing CSF fluid was identified. Approximately 10 cc of ISOVUE-200 M contrast was then injected spinal canal. The fluid was seen flowing freely in the thecal sac. The needle was then withdrawn. There were no complications. The patient was in stable condition and scheduled for follow-up CT myelogram 1 hour after the procedure. RAD/Lumbar Myelogram IMPRESSION: Successful fluoroscopic guided myelogram as detailed above. Electronically Signed: Matthew Ambrose, at 15:05 EDT ,
--- NOTE | 2021-11-18 12:23 | CT_ITS ---
STUDY: CT LUMBAR SPINE WITH CONTRAST REASON FOR EXAM: Female, 46 years old. LUMBAR STENOSIS RADIATION DOSAGE (If Supplied By Facility): CTDIvol = ( 46.61 ) mGy, DLP = ( 1307.71 ) mGycm TECHNIQUE: The patient was scanned in a multi detector CT scanner. High resolution transaxial imaging was performed following the intravenous administration of IV 10ml IsovueM-200. Images were obtained from to . Sagittal and coronal images were reconstructed. Individualized dose optimization techniques were used for this CT. COMPARISON: None FINDINGS: There are 5 nonrib-bearing lumbar vertebral bodies which will be labeled L1-L5. There are left laminectomy changes at the level of L5-S1. Myelogram: There is intrathecal contrast within the lumbar segments from the myelogram. There is trace focus of air in the left anterior extramedullary space at the level of L3-L4, iatrogenic from the myelogram. The conus terminates at the level of T12-L1. The thecal sac and visualized spinal cord are normal course and caliber. There is a 1.4 cm round lesion adjacent to the laminectomy site at the level of L5-S1 which demonstrates contrast within the dependent portions. This likely communicates with the spinal canal and is most likely represents a perineural cyst. Normal lumbar lordosis. There is no substantial scoliosis. No destructive osseous lesions. Mild bilateral sacroiliac joint degenerative changes. Vertebral body height and alignment is preserved. L1-2: No significant spinal stenosis or foraminal narrowing. L2-3: Mild bilateral facet arthropathy and ligamentum flavum hypertrophy. No significant spinal stenosis or foraminal narrowing. L3-4: Posterior disc bulge which impresses upon the ventral thecal sac. Mild bilateral facet arthropathy and ligamentum flavum hypertrophy. Mild spinal stenosis. No significant foraminal narrowing. L4-5: Posterior disc bulge which impresses upon the ventral thecal sac. Moderate bilateral facet arthropathy and ligamentum flavum hypertrophy contribute to mild spinal stenosis. No significant foraminal narrowing. L5-S1: Degenerative disc disease with vertebral height loss and anterior and posterior osteophytic spurring. Posterior disc bulge impresses upon the ventral thecal sac. Moderate to severe facet arthropathy and ligamentum flavum hypertrophy contribute to mild spinal stenosis. There is suggestion of mild bilateral foraminal narrowing. Expected foci of air and soft tissue stranding along the needle tract at the level of L3-L4. Otherwise, the paraspinal soft tissues are unremarkable. The visualized abdomen is unremarkable. CT/Spine Lumbar WITH Contrast IMPRESSION: 1. Mild multilevel degenerative changes as detailed below by level above most prominent at the L5-S1 level where there is mild spinal stenosis and suggestion of mild bilateral foraminal narrowing. Please note that MRI is more sensitive study for evaluation of the discs and can be obtained if clinically warranted. 2. 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 Electronically Signed: Matthew Ambrose, at 8:48 EDT ,
[2021-11-18 12:37] VITALS: BP 125/68; PULSE 61; RESP 20; O2SAT 93; BMI 38.2
[2021-11-18] MEDS: Lidocaine 2% (5ml sdv) 5 ML VIAL.MPF INFILT (13:25)
[2021-11-18 14:00] VITALS: BP 151/68; PULSE 54; RESP 18; O2SAT 98
== END 2021-11-18 23:59 | disposition home or self-care (01) ==
LOC: RAD 12:20
PROVIDERS: PCP Internal Medicine; Referring Provider Orthopaedic Surgery; Visit Provider Orthopaedic Surgery
DX: M48.062 Spinal stenosis, lumbar region with neurogenic claudication (principal)
CPT/HCPCS: 62304; 72132; Q9965

== ENCOUNTER 2022-01-30 15:25 | Emergency (ER) | payer BC, SELFPAY ==
[2022-01-30 15:28] VITALS: BP 116/83; PULSE 83; RESP 18; TEMP 36.6; O2SAT 98; BMI 38.1
[2022-01-30 15:32] VITALS: BP 116/83; PULSE 83; RESP 18; TEMP 36.6; O2SAT 98
--- NOTE | 2022-01-30 16:05 | CT_ITS ---
STUDY: CT ABDOMEN AND PELVIS WITH CONTRAST REASON FOR EXAM: Female, 46 years old. back pain RADIATION DOSAGE (If Supplied By Facility): CTDIvol = ( 18.44 ) mGy, DLP = ( 1364.27 ) mGycm TECHNIQUE: Transaxial images were obtained from the dome of the diaphragm to the symphysis pubis without oral contrast. IV 100mL Isovue-300 was administered. Sagittal and coronal images were reconstructed. Individualized dose optimization techniques were used for this CT. COMPARISON: None. FINDINGS: The visualized lung bases are unremarkable. The visualized portions of the heart are within normal limits. Normal liver. Normal gallbladder and extrahepatic biliary system. Normal spleen. Normal pancreas. Normal bilateral adrenal glands. Normal right kidney. Normal left kidney. There is a small hiatal hernia. Normal small intestine. There are multiple colonic diverticula consistent with diverticulosis. The appendix is visualized and appears normal. Normal abdominal aorta. Normal inferior vena cava. Normal retroperitoneum. Normal urinary bladder. Normal abdominal wall. Status post discectomy, interbody fusion, transpedicular fixation at L5/S1. There are 2 peripherally enhancing fluid collections within the superficial subcutaneous fat posterior to the paraspinous musculature measuring 4 cm in diameter on the right and 5 cm in diameter and the left consistent with postoperative seromas, chronic hematomas, or abscesses. CT/Abdomen/Pelvis W IV Cont ONLY IMPRESSION: Status post discectomy, interbody fusion, transpedicular fixation at L5/S1 with anatomic alignment. 2 fluid collections within the superficial subcutaneous fat worrisome for postoperative seromas, hematomas, or abscesses. Clinical correlation is recommended. Epidural abscess is of concern, MRI with contrast would be recommended. Electronically Signed: Kosta Lugo MD at 17:38 EDT ,
--- NOTE | 2022-01-30 16:06 | EX.ED.DYSGE1 ---
HPI History of Present Illness Chief Complaint: Abscess Narrative Narrative: 46-year-old female presenting with abscess to the lower back. Patient states she had surgery for lumbar spinal stenosis on the by Dr. Jose Aviles at the [facility] spine [place]. She states that initially she was doing well but noticed after wearing a back brace that she developed some redness and swelling to the left lumbar paraspinal area overlying her surgical site. She states he called the office and was placed on twice daily Keflex 500 mg. She is on day 9 and she still having draining from the site. She tried to call the surgeon however there is nobody available at the office. Patient states that she is not have any systemic signs or symptoms. She is not having a fever. She is eating and drinking normally. She making normal urine and stool. She does not feel ill. She is able to ambulate. She notices that the pain is worse with laying flat and she states it feels like golf balls in the lumbar paraspinal area. [facility] Medical History Abdominal pain, right upper quadrant Arthritis Chronic back pain Hyperlipemia Obesity Tobacco abuse Home Medications aspirin 81 mg chewable tablet 81 mg PO ONCE 09/22/17 [History Last Taken Unknown] ibuprofen 200 mg tablet 200 mg PO ONCE PRN 09/22/17 [History Last Taken Unknown] albuterol sulfate 90 mcg/actuation aerosol inhaler 1 puff INHALATION Q6H PRN #8.5 g 08/26/18 [Rx Last Taken Unknown] amoxicillin 875 mg-potassium clavulanate 125 mg tablet 1 tab PO BID #14 tab 08/26/18 [Rx Last Taken Unknown] benzonatate 100 mg capsule 100 mg PO TID PRN #30 cap 08/26/18 [Rx Last Taken Unknown] codeine 10 mg-guaifenesin 100 mg/5 mL oral liquid See Rx Instructions PO Q6H PRN #120 ml 08/26/18 [Rx Last Taken Unknown] ciprofloxacin HCl [Cipro] 500 mg PO BID #20 tab 01/30/22 [Rx Last Taken Unknown] Allergy/AdvReac Type Severity Reaction Status Date / Time No Known Allergies Allergy Verified 01/30/22 15:30 Family History Mother Arthritis CVA (cerebral vascular accident) Father Heart disease Myocardial infarction, Onset Age: 38 Hyperlipemia Grandmother Cancer lung Aunt Cancer esophageal Surgical History History of back surgery History of hysterectomy History of shoulder surgery Social History Smoking Status: Current every day smoker tobacco type: cigarettes alcohol intake: current alcohol intake frequency: a few times a month substance use type: does not use what type of physical activity do you participate in: none ROS ROS ED Constitutional Constitutional ED: Denies fever(s) or subjective Eyes Eyes: Denies blurry vision or diplopia ENT ENT ED: Denies rhinorrhea or sore throat Cardiovascular Cardiovascular: Denies chest pain Respiratory/Chest Respiratory/Chest: Denies cough or dyspnea Gastrointestinal Gastrointestinal: Denies abdominal pain, nausea or vomiting Genitourinary Genitourinary ED: Denies dysuria or hematuria Musculoskeletal Musculoskeletal: Reports back pain Integumentary Reports abscess Neurologic Neurologic: Denies headache(s) or weakness Psychiatric Psychiatric: Denies anxiety or depression EXAM Physical Exam Const Vital Signs: 01/30/22 15:28 01/30/22 15:32 01/30/22 17:39 Temperature 98 F 98 F Temperature Source Temporal Temporal Pulse Rate 83 83 Respiratory Rate 18 18 16 Blood Pressure 116/83 H 116/83 H Blood Pressure Mean 94 94 Pulse Ox 98 98 Oxygen Delivery Method Room Air Room Air Positive well nourished General Appearance ED: NAD HEENT Reports moist mucous membranes Negative for trauma Eyes PERRL and EOMs intact bilaterally Resp normal respiratory effort and clear to auscultation bilaterally Cardio regular rate and regular rhythm Back/Spine Back/Spine Narrative: Tenderness to palpation of the left lumbar paraspinal musculature. There is a surgical scar over this region which is erythematous and swollen. It is draining purulent discharge. There is a midline lumbar spinal scar which appears to be well-healing adjacent to this. There is a surgical scar on the right lumbar spine adjacent to the other 2 which is mildly tender to palpation however does not appear to be erythematous or swollen. No drainage from either the midline site or the right lumbar paraspinal site. Extremity normal to inspection General Extremety ED: Negative for tenderness Neuro oriented x3, CN's II-XII intact bilaterally and no sensory deficits noted Sensorium / Orientation: alert Motor Exam: strength 5/5 throughout Psych mental status grossly normal Skin Skin Narrative: As described above MDM MDM MDM Narrative Medical decision making narrative: I obtained blood work and spoke with Dr. Aviles. I discussed with him that the blood work was fairly unremarkable with exception of a slight leukocytosis of 11.5 without a left shift. I explained to him that there was purulent drainage from the left side incision and that I was awaiting imaging. At this point he recommended giving Cipro. I obtained a CT of the abdomen pelvis with IV contrast which shows concern for postoperative seromas, hematomas, abscesses bilaterally adjacent to the incision sites. Patient was advised of the findings. I spoke with Dr. Aviles again and described what I saw on the CAT scan. He states he is are likely going to be seromas and recommended that the patient continue on Cipro and call the office Wednesday. He states that he can see her that day if she calls that morning. I did express to him that the incision on the left side does have erythema and swelling with purulent discharge from it. He states that this is likely from superficial irritation from the back brace the patient was wearing. He recommended not wearing the back brace. I did discuss with him that she has not worn the back brace for 2 weeks. I also expressed to him that the radiologist had concern for epidural abscess. He did not believe this could be the case. He still recommended the same plan. I discussed all findings and discussion with the patient. She was given return precautions. Prescription for Cipro was provided. Impression: 1. Postop wound check?infection Lab Data Attestation: I reviewed the patient's lab results. Labs: Laboratory Results - last 24 hr 01/30/22 01/30/22 16:15 16:15 WBC 11.5 H RBC 4.43 Hgb 13.7 Hct 43.2 MCV 97.5 MCH 30.9 MCHC 31.7 L RDW Std Deviation 50.5 H RDW Coeff of Brenna 13.9 Plt Count 323 MPV 10.7 Immature Gran % (Auto) 0.300 Neut % (Auto) 70.0 Lymph % (Auto) 20.9 [place] % (Auto) 6.3 Eos % (Auto) 2.2 Baso % (Auto) 0.3 Absolute Neuts (auto) 8.0 H Absolute Lymphs (auto) 2.40 Nucleated RBC % 0 Sodium 139 Potassium 4.5 Chloride 110 H Carbon Dioxide 24.0 Anion Gap 5 BUN 9 Creatinine 0.77 Estim Creat Clear Calc 97.67 Est GFR (MDRD) Af Amer 103 Est GFR (MDRD) Non-Af 85 BUN/Creatinine Ratio 11.7 Glucose 91 Calcium 9.1 Total Bilirubin 0.30 AST 24 ALT 40 Alkaline Phosphatase 61 Total Protein 7.2 Albumin 3.3 Globulin 3.9 Albumin/Globulin Ratio 0.8 L Radiography Diagnostic Testing: Clinical Impression(s) from Imaging Studies Abdomen/Pelvis CT 01/30/22 16:05 IMPRESSION: Status post discectomy, interbody fusion, transpedicular fixation at L5/S1 with anatomic alignment. 2 fluid collections within the superficial subcutaneous fat worrisome for postoperative seromas, hematomas, or abscesses. Clinical correlation is recommended. Epidural abscess is of concern, MRI with contrast would be recommended. Electronically Signed: Kosta Lugo MD at 17:38 EDT , Discharge Plan Triage Chief Complaint: Abscess ED Provider: Basilio Casillas Dx/Rx/DC Orders Instructions: ED Abscess Antibiotic Treatment Only, ED Wound Infection after surgery Prescriptions: New ciprofloxacin HCl [Cipro] 500 mg tablet 500 mg PO BID Qty: 20 RF: 0 No Action aspirin 81 mg tablet,chewable 81 mg PO ONCE RF: 0 ibuprofen [Advil] 200 mg tablet 200 mg PO ONCE PRNRF: 0 codeine-guaifenesin [Cheratussin AC] 10-100 mg/5 mL liquid See Rx Instructions PO Q6H PRN (Reason: cough) Qty: 120 RF: 0 amoxicillin-pot clavulanate [Augmentin] 875-125 mg tablet 1 tab PO BID Qty: 14 RF: 0 benzonatate [Tessalon Perles] 100 mg capsule 100 mg PO TID PRN (Reason: cough) Qty: 30 RF: 0 ProAir HFA 90 mcg/actuation HFA aerosol inhaler 1 puff INHALATION Q6H PRN (Reason: shortness of breath or wheezing) Qty: 8.5 RF: 0 Primary Care Provider: Candice Gutierrez Referrals: Candice Gutierrez DO [Primary Care Provider] - Disposition Disposition: Home, Self Care Discharge Date/Time: 01/30/22 18:33
[2022-01-30 16:24] LABS: Basophil# 0.04 X10^3/uL; Basophil% 0.3 % (0-1); Eosinophil# 0.25 X10^3/uL; Eosinophils% 2.2 % (0-5); Hematocrit 43.2 % (37-47); Hemoglobin 13.7 g/dL (12.0-15.0); Lymphocyte % 20.9 % (19-41); Mean Corp Hgb Conc 31.7 g/dL (32-36); Mean Corpuscular Hgb 30.9 pg (27.0-32.0); Mean Corpuscular Volume 97.5 fL (81-99); Mean Platelet Vol. 10.7 fl (6.2-12.0); Monocyte# 0.72 X10^3/uL; Monocyte% 6.3 % (0-10); NRBC Flagged by Analyzer 0 % (0-5); Neutrophil # 8.04 X10^3/uL (2.7-7.7); Platelet Count 323 K/mm3 (150-450); RBC Distribution Width CV 13.9 % (11.6-14.6); RBC Distribution Width SD 50.5 fl (35.1-43.9); Red Blood Count 4.43 M/mm3 (4.2-5.4); White Blood Count 11.5 K/mm3 (4.4-11.0)
[2022-01-30 16:45] LABS: ALB/GLOB Ratio 0.8 RATIO (0.9-2.4); AST(SGOT) 24 U/L (15-37); Alanine Aminotransfer ALT/SGPT 40 U/L (13-56); Albumin, Serum 3.3 g/dL (3.2-5.0); Alkaline Phosphatase 61 U/L (45-117); Anion Gap 5 (5-15); BUN 9 mg/dL (7-18); BUN/Creat Ratio 11.7 RATIO (10-20); Calcium,Total 9.1 mg/dL (8.5-10.1); Chloride 110 mmol/L (98-107); Creatinine, Serum 0.77 mg/dL (0.55-1.02); EST Glomerular Filtration Rate 85 mL/min (>60); Est Glom Filt Rate - Afr Amer 103 mL/min (>60); Estimated Creatinine Clearance 97.67 ml/min; Globulin 3.9 g/dL (2.2-4.2); Glucose 91 mg/dL (74-106); Potassium 4.5 mmol/L (3.5-5.1); Protein, Total 7.2 g/dL (6.4-8.2); Sodium Level 139 mmol/L (136-145)
[2022-01-30] MEDS: Ciprofloxacin 400 MG/200 ML BAG 200 MG IV (17:04)
[2022-01-30 17:39] VITALS: RESP 16
== END 2022-01-30 18:33 | disposition home or self-care (01) ==
PROVIDERS: Emergency Provider Student in an Organized Health Care Education/Training Program; PCP Internal Medicine; Visit Provider Student in an Organized Health Care Education/Training Program
DX: L02.212 Cutaneous abscess of back [any part, except buttock and flank] (principal); T81.49XA Infection following a procedure, other surgical site, initial encounter; F17.210 Nicotine dependence, cigarettes, uncomplicated; E78.5 Hyperlipidemia, unspecified; M54.9 Dorsalgia, unspecified; G89.29 Other chronic pain
CPT/HCPCS: 74177; 80053; 85025; 87070; 87075; 87077; 87186; 87205; 96365; 99283; Q9967; A4216; J0744

== ENCOUNTER → 2022-06-24 | Outpatient (CLI) | payer BC, SELFPAY ==
--- NOTE | 2022-06-24 16:24 | MRI_ITS ---
STUDY: MRI LUMBAR SPINE WITH AND WITHOUT CONTRAST REASON FOR EXAM: Female, 46 years old. SPONDTLOTHESIS TECHNIQUE: Standardized fat and water weighted pulse sequences were obtained in the sagittal and axial planes. IV 23mL Clariscan was administered for the contrast portion of the examination. COMPARISON: CT 11/18/2021. FINDINGS: No demonstrated fracture. Vertebral bodies are normal in height. T11-12: Disc dehydration. Small, noncompressive right paracentral disc protrusion. No canal or foraminal stenosis. T12-L1: Normal disc height and morphology. Normal bilateral facet joints. Normal central canal. Normal bilateral lateral recesses. Normal intervertebral neural foramina. L1-2: Normal disc height and morphology. Normal bilateral facet joints. Normal central canal. Normal bilateral lateral recesses. Normal intervertebral neural foramina. L2-3: Normal disc height and morphology. Normal bilateral facet joints. Normal central canal. Normal bilateral lateral recesses. Normal intervertebral neural foramina. L3-4: Disc dehydration. Small, central, noncompressive disc protrusion. No canal or foraminal stenosis. Normal bilateral facet joints. Normal central canal. Normal bilateral lateral recesses. Normal intervertebral neural foramina. L4-5: Disc dehydration and mild disc space narrowing. Small, noncompressive right inferior foraminal disc protrusion. Normal bilateral facet joints. Normal central canal. Normal bilateral lateral recesses. L5-S1: Disc dehydration. 6 mm degenerative anterolisthesis. Prior posterior fusion. No disc protrusion or canal stenosis. Mild left foraminal encroachment due to spurring. Normal visualized paraspinous soft tissue structures. MRI/Spine Lumbar W/WO Contrast IMPRESSION: Noncompressive disc protrusions at T11-12, L3-4 and L4-5. No canal or high-grade foraminal stenosis. Mild L5-S1 anterolisthesis. Prior fusion. Electronically Signed: Basia Infante MD at 23:54 EDT Reading Location ID and State: [id number] / Tel , Service support ,
== END | disposition home or self-care (01) ==
PROVIDERS: PCP Internal Medicine; Visit Provider Orthopaedic Surgery
DX: M43.10 Spondylolisthesis, site unspecified (principal)
CPT/HCPCS: 72158; A9575

== ENCOUNTER → 2022-07-23 | Outpatient (CLI) | payer BC, SELFPAY ==
--- NOTE | 2022-07-23 06:44 | MRI_ITS ---
STUDY: MRI THORACIC SPINE WITHOUT CONTRAST REASON FOR EXAM: Female, 46 years old. STENOSIS TECHNIQUE: Standardized fat and water weighted pulse sequences were obtained in the sagittal and axial planes. COMPARISON: None. FINDINGS: Normal kyphosis of the thoracic spine. There is no substantial scoliosis. T1-2, T2-3, T3-4, T4-5, T5-6, T6-7, T7-8, T8-9, T9-10, T10-11, T11-12: Normal endplates. Normal disc hydration, heights and morphology of the corresponding intervertebral discs. Normal central canal and intervertebral neural foramina at the corresponding levels. The vertebral body hemangiomas at T3, T11 and T12. Normal visualized thoracic cord. Normal conus medullaris that terminates at the lower T12 vertebral body level. The soft tissue structures are unremarkable. MRI/Spine Thoracic (Routine) IMPRESSION: 1. Normal unenhanced MRI examination of the thoracic spine. 2. Small benign vertebral body hemangiomas at T3, T11 and T12 vertebral bodies. Electronically Signed: Nicolás Luciano MD at 8:37 EST ,
== END | disposition home or self-care (01) ==
PROVIDERS: PCP Internal Medicine; Referring Provider Orthopaedic Surgery; Visit Provider Orthopaedic Surgery
DX: M48.04 Spinal stenosis, thoracic region (principal)
CPT/HCPCS: 72146

== ENCOUNTER → 2022-09-17 | Outpatient (CLI) | payer BC, SELFPAY ==
--- NOTE | 2022-09-17 13:33 | RAD_ITS ---
INDICATION: PAIN EXAMINATION/TECHNIQUE: X-RAY - XR Spine Lumbar 2 or 3 Views COMPARISON: None. FINDINGS: VERTEBRAE: Preserved vertebral body height. No fracture. Postop change status post bilateral laminectomy and posterior fusion at L5-S1 Preservation of the normal lumbar lordosis. No significant facet arthropathy. DISCS: Disc spaces are maintained. INCLUDED ABDOMEN: Included bowel gas pattern is non-obstructive. RAD/Lumbar Spine 2 or 3 Views IMPRESSION: No evidence of lumbar spinal fracture or spondylolisthesis. Postop changes at L5-S1 Electronically Signed: Chad Johnston MD at 18:46 EST ,
--- NOTE | 2022-09-17 13:33 | RAD_ITS ---
STUDY: X-RAY - SACRUM/COCCYX REASON FOR EXAM: Female, 46 years old. PAIN TECHNIQUE: 3 view(s) of the sacrum and coccyx were obtained. COMPARISON: None. FINDINGS: Normal bilateral sacroiliac joints. Normal visualized sacral ala and fused sacral bodies. Normal sacrococcygeal junction with a normal angulation. Normal coccygeal segments. The presacral soft tissue structures are unremarkable. RAD/Sacrum-Coccyx min 2 Views IMPRESSION: Normal x-rays of the sacrum and coccyx. Electronically Signed: Tate Cruz MD at 15:43 EST ,
== END | disposition home or self-care (01) ==
LOC: LAB 13:27 → RAD 13:28
PROVIDERS: PCP Internal Medicine; Referring Provider Anesthesiology Pain Medicine; Visit Provider Anesthesiology Pain Medicine
DX: Z98.1 Arthrodesis status (principal); M96.1 Postlaminectomy syndrome, not elsewhere classified
CPT/HCPCS: 72100; 72220

== ENCOUNTER 2023-01-11 09:50 | Outpatient (RCR) | payer BC, SELFPAY ==
--- NOTE | 2023-01-18 17:50 | HP.OTFCE_ITS ---
Floor (Occasional 1-33% of Day): 20# Floor (Frequent 34-66% of Day): NA Floor (Constant 67-100% of Day): NA Floor PDL: Light Knee (Occasional 1-33% of Day): 25# Knee (Frequent 34-66% of Day): NA Knee (Constant 67-100% of Day): NA Knee PDL: Light Waist (Occasional 1-33% of Day): 20# Waist (Frequent 34-66% of Day): 10# Waist (Constant 67-100% of Day): NA Waist PDL: Light Shoulder (Occasional 1-33% of Day): 20# Shoulder (Frequent 34-66% of Day): 10# Shoulder (Constant 67-100% of Day): NA Shoulder PDL: Light Overhead (Occasional 1-33% of Day): 10# Overhead (Frequent 34-66% of Day): NA Overhead (Constant 67-100% of Day): NA Overhead PDL: Sedentary Comments: Pt demo with LIGHT PHYSICAL DEMAND LEVEL at floor/knee/waist/shoulder levels-. Pt demo with SEDENTARY PHYSICAL DEMAND LEVEL at overhead levels. pt limited by pain and increase symptoms of tingling/numbness throughout lifting increasing risk of injury. Bending: Occasional Ability (1-33% of day) Comments: with external support limited plane of motion Squatting: Occasional Ability (1-33% of day) Comments: with external support Kneeling: No Ablility (0% of day) Reaching out: Occasional Ability (1-33% of day) Comments: performed while standing Reaching up: Occasional Ability (1-33% of day) Comments: performed while standing Sitting: Occasional Ability (1-33% of day) Comments: pt demo constant motion to offset weight Walking: Occasional Ability (1-33% of day) Standing: Occasional Ability (1-33% of day) Comments: with ability to move and shift body weight Duration Sedentary Sedentary Light Light Light Medium Medium Medium Heavy Very Heavy Heavy Occasional (0-33% of day) Frequent (34-66% of day) Constant (67-100% of day) 10 # Negligible Negligible 15 # 8 # Negligible 20 # 10# Negli. 35 # 18 # 7 # 50 # 25 # 10 # 75 # 100 # >100 # 38 # 50 # >50 # 15 # 20 # >20 # Weight:: 117.934 kg Hand Dominance: right Medical History Including Restrictions: pt states she initially had sx in 2005 for L5 -S1 discectomy.pt states she continued to have problems of lower half of her body going numb while she was sleeping ( pt states this was before initial sx and symptoms continued) pt continued with her daily tasks and working. pt states 2016 she had back pain so intense she fell to floor at work- pt states she went to orthopedic back dr. davidson with 2 MRI per pt was told she was overweight and she would not have pain. pt states she went back to work At [employer] and continued dealing with pain -. 2020 had Achilles sx in 2020 pt was NWB for 12 weeks. and when she started wt. bearing and walking her back became so painful- she initiated PT for her foot and went to family DrLani because she could not tolerate sitting/standing/walking etc. pt states pain medication and requested MRI but insurance denied until she underwent PT for her back. pt then started doing PT for Foot and back she was to painful- pt states that PT she was working with wanted pt to see Ortho/henry sx and requested MRI- again her insurance denied. Pt states she had MRI done and Dr. Pierson and could not get apt scheduled in timely manor pt went to seek ortho back dr. pt went to see Dr. Aviles and from initial back sx he rec/d sx. 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 pt states two weeks after sx she had infection call put on antibiotic and day 6 infection was not improving place on more antibiotics with more infection- and place on another antibiotic. with to ER took samples and call Dr. Aviles and informed surgeon antibiotic was not working- place on different antibiotic. had cat scan to ensure infection was not to bone- went to Dr. Aviles and hand to have OID and was placed on wound vac. followed with packing of wound until it was healed. Dr. Aviles wanted water therapy but due to pts symptoms of incontinences and she could not get into the pool. pt states MRI and nerve conduction testing ( indicates absent H reflex possible from sx). pt went to neurologist 2021 for 2nd opinion- had MRI of neck ( when pt had this done after laying down pts legs were numb and needed assistance for LE getting out of the MRI) Dr. Aviles felt symptoms may not be ortho and may be henry based -. pt states consultation pt has weak back syndrome -. pt states she has been seeing Dr. Flower for pain mtg Jul-Aug. getting injection ( no improvement). pt states she did see Urologists/ distribution driver. pt states she attempted pelvic floor ex with internal device strengthening. pt had Back sx in December - Dr. Valentine Colbert to help with symptoms pt had bladder sx. after bladder symptoms resolved from sx- pt was able to initiate aquatic therapy but only did 2 sessions due to pool malfunction-. pt reports frustration as she feels something mechanically is causing problems. Diagnoses: incontinences started in 2013. depression (seeing counselor). 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 Lumbar spondylolisthesis. failed back syndrome. 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 lumbar spinal stenosis. significant disc space narrowing at L5-S1. degenerative disc disease with vertebral height loss and anterior and posterior osteophytic spurring. Mild cervical spondylosis. Not sure if you wanted this info but thought I would add it : L3-4 disc bulge w/ mild bilateral foraminal stenosis and mild spinal canal narrowing. L4-5 Posterior disc bulge which impresses upon ventral thecal sac. posterior annular tear. T12-L1 disc bulge. T11-12 mild disc bulge. T11-12 Disc dehydration. L3-4 disc dehydration. L4-5 disc dehydration. L5-S1 disc dehydration 6mm degenerative anterolistheses mild left forminal encroachment due to spurring. C5-C6 disc bulge with canal stenosis. Mild intervertebal disc space narrowing at multiple levels of the lumbar spine. nerve test : absent bilateral tibial H reflexes Symptoms: incontinences started in 2013. numbness/tingling hips down depending on position. back pain. leg pain. left leg numbness. pelvic floor dysfunction. pelvic floor tingling/numbness. Pain: pt states pain in content 10/10 pain. pt states she does have a back brace but did not wear it today. 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 pt states she has struggled with finding cause of her symptom of back pain, leg numbness and knew she could not safety perform her job duties at [employer]. 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 pt was unsure what her lifting requirement is for her position but feels it is 50-75#. 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 pt states she has not returned to work to to back pain. Behavioral: pt demo flat affect and did get emotional towards end of session as feels she is struggling with positive treatments for her back pain and LE numbness. expresses she want to find answers. ADLS: Pt states she lives with in one story home with 3 entry with 1 railing-. pt has walk in shower has shower chair and grab bars. helps with self care. as ww and straight cane at home. yard work by . does cooking. pt will do dishes. pt does drive short distance. and other family does shopping. ROM: pt demo ROM WFL. pt is slow with forward lumbar flexion to 65* (has increase symptoms of tingling in left LE) Strength: FIT2 peak force testing comparing right to left. shoulder flexion right 10# left 8#. shoulder extension right 15# left 12#. elbow flexion right 15# left 13#. triceps right 15# left 16#. hip flexion right 17.5# left 17#. hip adduction right 13# left 15#. hip abduction right 14# left 16#. hamstring right 21# left 20#. quadriceps right 20# left 27# Right Coding Manager Strength Average: 40.00 Right Coding Manager Strength Percentile: 3% Left Coding Manager Strength Average: 31.66 Left Coding Manager Strength Percentile: 1.7% Right Lateral Pinch Average: 7.33 Right Lateral Pinch Percentile: <10% Left Lateral Pinch Average: 8.00 Left Lateral Pinch Percentile: 10% Right Tripod Pinch Average: 8.00 Right Tripod Pinch Percentile: 10% Left Tripod Pinch Average: 8.00 Left Tripod Pinch Percentile: 10% Sensation: states at times. right hand LF and RF 3.61 = Diminished light touch. right MF 4.08 = Diminished protective sensation. right LF and RF 4.31 = Diminished protective sensation. left LF /rf 3.61= Diminished light touch. left MF 4.08 = Diminished protective sensation. left IF/thumb 4.74 = loss of protective sensation Fine Motor: denies. 9 hole peg test. right 20.44 sec. =25% for age. left 26.43 sec. =10% for age Balance: functional reach test 5. Interpretation: A score of 6 or less indicates a significant. increased risk for falls. A score between 6-10 inches indicates a. moderate risk for falls. Age related norms for the functional reach test: Women age 20-40yrs (in inches) 14.6 ? 2.2. Women age 41-69yrs (in inches) 13.8 ? 2.2 Bending: pt demo the ability to bend forward in limited plan of motion 3/3x, 10/10x heart rate following 65. 10/10x rapidly (no change in speed) heart rate 73 following. pt reports pain is 10/10 constantly so pain level did not change-. pt states tingling traveling down her left leg are more bothersome. pt can bend forward on occasional ability Squatting: pt competed squatting 3/3x in limited motion and use of external support. pts heart rate was 74. pt reports all 10/10 pain ( states this is her baseline). pt attempted 10/10x but only able to complete 5/10 heart rate 84. numbness tingling down left leg and into her pelvic floor. pt can squat on low occasional ability Kneeling: declines. pt states she does not kneel and due to increase leg numbness declined for her safety. pt has no ability to kneel Reaching out/up: pt demo the ability to reach up/out while standing 3/3x, 10/10x and 10/10x rapidly. pts heart rate 80. pt can reach up/out on occasional ability Walking: pt ambulates with antalgic gait pattern- step length short . pt demo the ability to ambulate 300 feet to therapy center and out at slower pace. pt can ambulate on occasional ability Standing: pt stood throughout session shift body weight and holding left leg in hip and knee flexion- pt states she does this because leg goes tingling/numb. pt can stand on occasional ability Sitting: pt demo limited ability to sit for 10 min - pt sit /stands throughout session. pt shifting weight during sitting and then stands. states if she sits to long both legs go numb. Climbing Stairs: pt demo the ability to descend and ascend 10 steps with use of rail and single leg step pattern. Floor Lift: pt demo the ability to lift 20# maximally from this level with fair lifting mechanics. Knee Lift: pt demo the ability to lift 25# maximally from this level with fair lifting mechanics. Waist Lift: pt demo the ability to lift 20# maximally from this level with fair lifting mechanics. Shoulder Lift: pt demo the ability to lift 20# maximally from this level with fair lifting mechanics. Overhead Lift: pt demo the ability to lift 10# maximally from this level with fair lifting mechanics. Carrying: declined Comments: pt struggled with lifting and increase in left leg tingling/numbness. pt heart rate ranged from mind 64s to 84. Pain in low back and symptoms of tingling/numbness of LE limits pts safe functional mobility.
--- NOTE | 2023-01-18 17:50 | HP.OTFCE.D ---
FCE D/C Summary - Discharge DANIEL BUCKLEY was seen for a one time visit for an FCE on 01/11/23 and is discharged.
== END 2023-01-11 19:00 | disposition home or self-care (01) ==
LOC: OT 09:50
PROVIDERS: PCP Internal Medicine; Referring Provider Anesthesiology Pain Medicine; Visit Provider Anesthesiology Pain Medicine
DX: M96.1 Postlaminectomy syndrome, not elsewhere classified (principal)
CPT/HCPCS: 97750

== ENCOUNTER → 2023-09-17 | Outpatient (CLI) | payer BC, MEDICARE, SELFPAY ==
--- NOTE | 2023-09-17 10:49 | MRI_ITS ---
STUDY: MRI LUMBAR SPINE WITH AND WITHOUT CONTRAST REASON FOR EXAM: Female, 47 years old. Lumbar radiculopathy-LT LEG WORSE , HX OF LUMBAR FUSION TECHNIQUE: Standardized fat and water weighted pulse sequences were obtained in the sagittal and axial planes. 25 mL of IV Clariscan was administered for the contrast portion of the examination. COMPARISON: Postmyelogram CT of the lumbar spine 07/08/2023. FINDINGS: T10-T11: (Sagittal only). Normal endplates. Normal disc height, hydration and morphology. Normal central canal and bilateral intervertebral neural foramina. T11-T12: (Sagittal only). Normal endplates. Minimal disc space height narrowing with normal disc hydration. Less obvious small right posterior paramedian ventral extradural defect due to disc protrusion is most likely unchanged. This is technique related. Normal central canal and bilateral intervertebral neural foramina. T12-L1: (Sagittal only). Normal endplates. Normal disc height, hydration and morphology. Normal central canal and bilateral intervertebral neural foramina. This level is unchanged. Normal lumbar lordosis. There is no substantial scoliosis. Normal conus medullaris that terminates at the T12-L1 disc space level. L1-2: Normal endplates. Normal disc height, hydration and morphology. Normal bilateral facet joints. Normal central canal and bilateral lateral recesses. Normal bilateral intervertebral neural foramina. L2-3: Normal endplates. Normal disc height, hydration and morphology. Normal bilateral facet joints. Normal central canal and bilateral lateral recesses. Normal bilateral intervertebral neural foramina. L3-4: Normal endplates. Mild disc space height narrowing. Normal disc hydration. Mild ventral extradural defect due to posterior bulging annulus is unchanged. Normal facet joints. Normal central canal and bilateral lateral recesses. Normal bilateral intervertebral neural foramina. L4-5: Normal endplates. Normal disc space height narrowing but no ventral extradural defect. Mild bilateral degenerative facet arthropathy. Normal central canal and bilateral lateral recesses. Normal bilateral intervertebral neural foramina. This level is unchanged. L5-S1: Pedicular screws and rods and disc implant. Minimal degenerative anterolisthesis of L5 on S1 is unchanged. Postsurgical absence of the left L5 inferior articular facet. No significant facet arthropathy. Tapered termination of the thecal sac at the upper S1 body level. Normal central canal and bilateral lateral recesses. Normal right intervertebral neural foramen. Signal distortion on the left intervertebral neural foramen. Normal visualized sacral ala. Normal visualized paraspinous soft tissue structures. Following IV contrast administration, there are no abnormally enhancing lesions intradurally and extradurally. MRI/Spine Lumbar W/WO Contrast IMPRESSION: 1. Small right T11-T12 posterior paramedian disc protrusion is obvious only on postmyelogram CT of 07/08/2023. This is technique related since the MRI sagittal views are 4 mm thick with 5 mm gaps and no axial views were provided. In my opinion, this is likely unchanged. There is however no associated spinal stenosis or nerve root displacement. This is of doubtful clinical significance. 2. No MRI evidence of lumbar extruded disc fragment or nerve root displacement. 3. Tiny L3-4 posterior bulging annulus is unchanged. 4. Limited visualization of the left L5-S1 intervertebral neural foramen due to metallic signal distortion artifacts coming from the left pedicular screw and trena. 5. No significant interval change when compared to post myelogram CT of 07/08/2023. Electronically Signed: Nicolás Luciano MD at 12:12 EST ,
--- OUTSIDE RECORDS SUMMARY | 2023-09-17 11:13 | XMS RPT_ITS | CCD ---
Author Name Unknown Address [phone] [place] [address] Organization [facility] Care Team Providers Care Chief Digital Media Officer Name Role Phone Jolie SHELL, Rafiq Dunn Unavailable REBEKA MEHTA Unavailable Unavailable TYSON REBEKA J Unavailable Unavailable WEBB, ALVIN L Unavailable Unavailable HARRIS, HARKEET Unavailable Unavailable WEBB, ALVIN L Unavailable Unavailable REBEKA MEHTA Unavailable Unavailable WEBB, ALVIN L Unavailable Unavailable WEBB, ALVIN L Unavailable Unavailable HARRIS, HARKEET Unavailable Unavailable TYSON REBEKA J Unavailable Unavailable TYSON REBEKA J Unavailable Unavailable WEBB, ALVIN L Unavailable Unavailable TYSON REBEKA J Unavailable Unavailable WEBB, ALVIN L Unavailable Unavailable WEBB, ALVIN L Unavailable Unavailable HARRIS, HARKEET Unavailable Unavailable Rebeka Mehta Unavailable Unavailabl e Rebeka Mehta Unavailable UnavailRafiq Phipps MD Unavailable Lisa Gutierrezn Primary Care Provider TIMOTEO AREVALO Admitting Unavail able TIMOTEO AREVALO Referring Unavail able OBLISA OWENSN Primary Care Unavailable OberhausLisa doen Primary Care Provider OberLisa landrum DOn Unavailable Unavailable Oberhauser Dang L Unavailable Unavailable Britta Bhakta Unavailable Unavailable Oberhauser Lisa BARRIENTOSn Primary Care Provider Lisa Gutierrez DOn Primary Care Provider Lisa Gutierrezn L Unavailable Unavailable Unavailable Unavailable Unavailable DAHIANA WILDER Attending Unavailable DAHIANA WILDER Referring Unavailable OBERHAUSER, DANG Primary Care Unavailable SHAAN, ESEQUIEL W Admitting Unavailable LISANDRO TRUJILLO Attending Unavailable SHAAN, ESEQUIEL W Referring Unavailable OBERHAUSER, DANG Primary Care Unavailable SHAAN, ESEQUIEL W Admitting Unavailable WARKUSH, KIMBERLY Attending Unavailable SHAAN, ESEQUIEL W Referring Unavailable OBERHAUSER, DANG Primary Care Unavailable SHAAN, ESEQUIEL W Admitting Unavailable WARNES, KIMBERLY Attending Unavailable SHAAN, ESEQUIEL W Referring Unavailable OBERHAUSER, DANG Primary Care Unavailable SHAAN, ESEQUIEL W Admitting Unavailable WARKIMBERLY CURRIE Attending Unavailable SHAAN, ESEQUIEL W Referring Unavailable OBERHAUSER, DANG Primary Care Unavailable SHAAN, ESEQUIEL W Admitting Unavailable WARKUSH, KIMBERLY Attending Unavailable SHAAN, ESEQUIEL W Referring Unavailable OBERHAUSER, DANG Primary Care Unavailable SHAAN, ESEQUIEL W Admitting Unavailable ENRIQUE SHAH Attending Unavailable SHAAN, ESEQUIEL W Referring Unavailable OBERHAUSER, DANG Primary Care Unavailable SHAAN, ESEQUIEL W Admitting Unavailable WARNES, KIMBERLY Attending Unavailable SHAAN, ESEQUIEL W Referring Unavailable OBERHAUSER, DANG Primary Care Unavailable SHAAN, ESEQUIEL W Admitting Unavailable COLLIN RUTHERFORD Attending Unavailable SHAAN, ESEQUIEL W Referring Unavailable OBERHAUSER, DANG Primary Care Unavailable SHAAN, ESEQUIEL W Admitting Unavailable COLLIN RUTHERFORD Attending Unavailable SHAAN, ESEQUIEL W Referring Unavailable OBERHAUSER, DANG Primary Care Unavailable SHAAN, ESEQUIEL W Admitting Unavailable WARKIMBERLY CURRIE Attending Unavailable SHAAN, ESEQUIEL W Referring Unavailable OBERHAUSER, DANG Primary Care Unavailable SHAAN, ESEQUIEL W Admitting Unavailable ENRIQUE SHAH Attending Unavailable SHAAN, ESEQUIEL W Referring Unavailable OBERHAUSER, DANG Primary Care Unavailable SHAAN, ESEQUIEL W Admitting Unavailable WARKIMBERYL CURRIE Attending Unavailable SHAAN, ESEQUIEL W Referring Unavailable OBERHAUSER, DANG Primary Care Unavailable SHAAN, ESEQUIEL W Admitting Unavailable WARKIMBERLY CURRIE Attending Unavailable SHAAN, ESEQUIEL W Referring Unavailable OBERHAUSER, DANG Primary Care Unavailable SHAAN, ESEQUIEL W Admitting Unavailable LISANDRO TRUJILLO Attending Unavailable SHAAN, ESEQUIEL W Referring Unavailable OBERHAUSER, DANG Primary Care Unavailable SHAAN, ESEQUIEL W Admitting Unavailable ALYSSA ENRIQUE Attending Unavailable SHAAN, ESEQUIEL W Referring Unavailable OBERHAUSER, DANG Primary Care Unavailable SHAAN, ESEQUIEL W Admitting Unavailable ELIASLISANDRO Fonseca Attending Unavailable SHAAN, ESEQUIEL W Referring Unavailable OBERHAUSER, DANG Primary Care Unavailable SHAAN, ESEQUIEL W Admitting Unavailable SHAH, ENRIQUE Attending Unavailable SHAAN, ESEQUIEL W Referring Unavailable OBERHAUSER, DANG Primary Care Unavailable SHAAN, ESEQUIEL W Admitting Unavailable SHAH, ENRIQUE Attending Unavailable SHAAN, ESEQUIEL W Referring Unavailable OBERHAUSER, ADNG Primary Care Unavailable SHAAN, ESEQUIEL W Admitting Unavailable ELIASLISANDRO Fonseca Attending Unavailable SHAAN, ESEQUIEL W Referring Unavailable OBERHAUSER, DANG Primary Care Unavailable SHAAN, ESEQUIEL W Admitting Unavailable SHAH, ENRIQUE Attending Unavailable SHAAN, ESEQUIEL W Referring Unavailable OBERHAUSER, DANG Primary Care Unavailable SHAAN, ESEQUIEL W Admitting Unavailable ELIASLISANDRO Fonseca Attending Unavailable SHAAN, ESEQUIEL W Referring Unavailable OBERHAUSER, DANG Primary Care Unavailable SHAAN, ESEQUIEL W Admitting Unavailable KIMBERLY SHERWOOD Attending Unavailable SHAAN, ESEQUIEL W Referring Unavailable OBERHAUSER, DANG Primary Care Unavailable SHAAN, ESEQUIEL W Admitting Unavailable SHAH, ENRIQUE Attending Unavailable SHAAN, ESEQUIEL W Referring Unavailable OBERHAUSER, DANG Primary Care Unavailable SHAAN, ESEQUIEL W Admitting Unavailable COLLIN RUTHERFORD Attending Unavailable SHAAN, ESEQUIEL W Referring Unavailable OBERHAUSER, DANG Primary Care Unavailable SHAAN, ESEQUIEL W Admitting Unavailable SHAH, ENRIQUE Attending Unavailable SHAAN, ESEQUIEL W Referring Unavailable OBERHAUSER, DANG Primary Care Unavailable SHAAN, ESEQUIEL W Admitting Unavailable SHAH, ENRIQUE Attending Unavailable SHAAN, ESEQUIEL W Referring Unavailable OBERHAUSER, DANG Primary Care Unavailable SHAAN, ESEQUIEL W Admitting Unavailable WARKIMBERLY CURRIE Attending Unavailable SHAAN, ESEQUIEL W Referring Unavailable OBERHAUSER, DANG Primary Care Unavailable SHAAN, ESEQUIEL W Admitting Unavailable WARKIMBERLY CURRIE Attending Unavailable SHAAN, ESEQUIEL W Referring Unavailable OBERHAUSER, DANG Primary Care Unavailable OBERHAUSER, DANG Admitting Unavailable LISANDRO TRUJILLO Attending Unavailable OBERHAUSER, DANG Referring Unavailable OBERHAUSER, DANG Primary Care Unavailable SHAAN, ESEQUIEL W Admitting Unavailable LISANDRO TRUJILLO Attending Unavailable SHAAN, ESEQUIEL W Referring Unavailable OBERHAUSER, DANG Primary Care Unavailable SHAAN, ESEQUIEL W Admitting Unavailable WARNES, KIMBERLY Attending Unavailable SHAAN, ESEQUIEL W Referring Unavailable OBERHAUSER, DANG Primary Care Unavailable SHAAN, ESEQUIEL W Admitting Unavailable SHAHENRIQUE Attending Unavailable SHAAN, ESEQUIEL W Referring Unavailable OBERHAUSER, DANG Primary Care Unavailable SHAAN, ESEQUIEL W Admitting Unavailable SHAHENRIQUE Attending Unavailable SHAAN, ESEQUIEL W Referring Unavailable OBERHAUSER, DANG Primary Care Unavailable SHAAN, ESEQUIEL W Admitting Unavailable LISANDRO TRUJILLO Attending Unavailable SHAAN, ESEQUIEL W Referring Unavailable OBERHAUSER, DANG Primary Care Unavailable DAHIANA WILDER Admitting Unavailable OBERHAUSER, DANG Primary Care Unavailable OBERHAUSER, DANG Admitting Unavailable OBERHAUSER, DANG Referring Unavailable OBERHAUSER, DANG Primary Care Unavailable WARNES, KIMBERLY Attending Unavailable OBERHAUSER, DANG Admitting Unavailable SAVITA SHAHD Attending Unavailable OBERHAUSER, DANG Referring Unavailable OBERHAUSER, DANG Primary Care Unavailable OBERHAUSER, DANG Admitting Unavailable WARNES, KIMBERLY Attending Unavailable OBERHAUSER, DANG Referring Unavailable OBERHAUSER, DANG Primary Care Unavailable OBERHAUSER, DANG Admitting Unavailable WARNES, KIMBERLY Attending Unavailable OBERHAUSER, DANG Referring Unavailable OBERHAUSER, DANG Primary Care Unavailable Oberhauser, Dang L Primary Care Provider Alvin Webb MD Primary Care Provider [phone] Oberhauser, Dang L Primary Care Provider BRANDON FAULKNER Admitting Unavailable BRANDON FAULKNER Attending Unavailable OBERHAUSER DO, DANG Primary Care Unavailable MODESTO BARROSO Consulting Unavailable SOUTH, TORIE Admitting Unavailable SOUTH, TORIE Attending Unavailable OBERHAUSER DO, DANG Primary Care Unavailable LOUIE WILSON Consulting Unavailable OBERHAUSER, DANG L Primary Care Unavailable OBERHAUSER, DANG L Referring Unavailable OBERHAUSER, DANG L Primary Care Unavailable PAGE DE LA GARZA Attending Unavailable OBERHAUSER, DANG L Primary Care Unavailable TIMOTEO AVILES Referring Unavailable OBERHAUSER, DANG L Primary Care Unavailable TIMOTEO AVILES Referring Unavailable OBERHAUSER, DANG L Primary Care Unavailable STFEAN, TIMOTEO BUCHANAN Referring Unavailable OBERHAUSER, DANG Aleman Primary Care Unavailable OBERHAUSER, DANG L Primary Care Unavailable STEFAN, TIMOTEO BUCHANAN Referring Unavailable Oberhauser, Dang L Primary Care Provider Oberhauser DO, Dang Primary Care Provider [phone] NEAL MONROY Referring Unavailable OBERHAUSER, DANG Aleman Primary Care Unavailable Oberhauser, Dr. Dang Soares Primary Care Unava ilable Stefan, Dr. Timoteo Buchanan Attending Unavaila ble Oberhauser, Dr. Dang Soares Primary Care Unava ilable Stefan, Dr. Timoteo Buchanan Attending Unavaila ble Oberhauser, Dr. Dang Soares Primary Care Unava ilable Stefan, Dr. Timoteo Buchanan Attending Unavaila ble Oberhauser, Dr. Dang Soares Primary Care Unava ilable Stefan, Dr. Timoteo Buchanan Attending Unavaila ble Oberhauser, Dr. Dang Soares Primary Care Unava ilable Stefan, Dr. Timoteo Buchanan Attending Unavaila ble Oberhauser, Dr. Dang Soares Primary Care Unava ilable Stefan, Dr. Timoteo Buchanan Attending Unavaila ble Oberhauser, Dr. Dang Soares Primary Care Unava ilable Stefan, Dr. Timoteo Buchanan Attending Unavaila ble Oberhauser, Dr. Dang Soares Primary Care Unava ilable Stefan, Dr. Timoteo Buchanan Attending Unavaila ble Oberhauser, Dr. Dang Soares Primary Care Unava ilable Stefan, Dr. Timoteo Buchanan Attending Unavaila ble Oberhauser, Dr. Dang Soares Primary Care Unava ilable Stefan, Dr. Timoteo Buchanan Attending Unavaila ble Oberhauser, Dr. Dang Soares Primary Care Unava ilable Stefan, Dr. Timoteo Buchanan Attending Unavaila ble Oberhauser, Dr. Dang Soares Primary Care Unava ilable Stefan, Dr. Timoteo Buchanan Attending Unavaila ble Oberhauser, Dr. Dang Soares Primary Care Unava ilable Stefan, Dr. Timoteo Buchanan Attending Unavaila ble Oberhauser, Dr. Dang Soares Primary Care Unava ilable Stefan, Dr. Timoteo Buchanan Attending Unavaila ble Oberhauser, Dr. Dang Soares Primary Care Unava ilable Stefan, Dr. Timoteo Buchanan Attending Unavaila ble Oberhauser, Dr. Dang Soares Primary Care Unava ilable Stefan, Dr. Timoteo Buchanan Attending Unavaila ble Oberhauser, Dr. Dang Soares Primary Care Unava ilable Stefan, Dr. Timoteo Buchanan Attending Unavaila ble Oberhauser, Dr. Dang Soares Primary Care Unava ilable Stefan, Dr. Timoteo Buchanan Attending Unavaila ble Oberhauser, Dr. Dang Soares Primary Care Unava ilable Stefan, Dr. Timoteo Buchanan Attending Unavaila ble Oberhauser, Dang Primary Care Unavailable Oberhauser, Dang Attending Unavailable Oberhauser, Dang Referring Unavailable Oberhauser, Dang Primary Care Unavailable Oberhauser, Dang Attending Unavailable Oberhauser, Dang Referring Unavailable Oberhauser, Dang Primary Care Unavailable Oberhauser, Dang Attending Unavailable Oberhauser, Dang Referring Unavailable Oberhauser, Dang Attending Unavailable Oberhauser, Dang Primary Care Unavailable Oberhauser, Dang Referring Unavailable Oberhauser, Dang Attending Unavailable Oberhauser, Dang Referring Unavailable Oberhauser, Dang Primary Care Unavailable Oberhauser, Dang Primary Care Unavailable Oberhauser, Dang Attending Unavailable Oberhauser, Dang Referring Unavailable Oberhauser, Dang Attending Unavailable Oberhauser, Dang Referring Unavailable Oberhauser, Dang Primary Care Unavailable Oberhauser, Dang Attending Unavailable Oberhauser, Dang Referring Unavailable Oberhauser, Dang Primary Care Unavailable Oberhauser, Dang Attending Unavailable Oberhauser, Dang Referring Unavailable Oberhauser, Dang Primary Care Unavailable Oberhauser, Dang Primary Care Unavailable Oberhauser, Dang Attending Unavailable Oberhauser, Dang Referring Unavailable VAHE VIZCARRA Attending Unavailable OBERHAUSER, DANG Referring Unavailable OBERHAUSER, DANG Primary Care Unavailable VAHE VIZCARRA Attending Unavailable OBERHAUSER, DANG Primary Care Unavailable OBERHAUSER, DANG Primary Care Unavailable NEAL MONROY Referring Unavailable NEAL MONROY Admitting Unavailable ESCOBAR GIFFORD Attending Unavaila ble DAHIANA WILDER Attending Unavailable OBERHAUSER, DANG Primary Care Unavailable DAHIANA WILDER Attending Unavailable OBERHAUSER, DANG Primary Care Unavailable SYSTEM, PROVIDER NOT IN Referring Unavaila ble SYSTEM, PROVIDER NOT IN Attending Unavaila ble OBERHAUSER, DANG Primary Care Unavailable SYSTEM, PROVIDER NOT IN Referring Unavaila ble SYSTEM, PROVIDER NOT IN Attending Unavaila ble OBERHAUSER, DANG Primary Care Unavailable OBERHAUSER, DANG Primary Care Unavailable SYSTEM, PROVIDER NOT IN Referring Unavaila ble SYSTEM, PROVIDER NOT IN Attending Unavaila ble OBERHAUSER, DANG Primary Care Unavailable SYSTEM, PROVIDER NOT IN Referring Unavaila ble SYSTEM, PROVIDER NOT IN Attending Unavaila ble OBERHAUSER, DANG Primary Care Unavailable SYSTEM, PROVIDER NOT IN Referring Unavaila ble SYSTEM, PROVIDER NOT IN Attending Unavaila ble SYSTEM, PROVIDER NOT IN Attending Unavaila ble SYSTEM, PROVIDER NOT IN Referring Unavaila ble OBERHAUSER, DANG Primary Care Unavailable SYSTEM, PROVIDER NOT IN Attending Unavaila ble SYSTEM, PROVIDER NOT IN Referring Unavaila ble OBERHAUSER, DANG Primary Care Unavailable SYSTEM, PROVIDER NOT IN Referring Unavaila ble SYSTEM, PROVIDER NOT IN Attending Unavaila ble OBERHAUSER, DANG Primary Care Unavailable SYSTEM, PROVIDER NOT IN Referring Unavaila ble SYSTEM, PROVIDER NOT IN Attending Unavaila ble OBERHAUSER, DANG Primary Care Unavailable SYSTEM, PROVIDER NOT IN Referring Unavaila ble SYSTEM, PROVIDER NOT IN Attending Unavaila ble OBERHAUSER, DAGN Primary Care Unavailable Oberhauser DO, Dang L Primary Care Provider Oberhauser DO, Dang L Unavailable [phone] Oberhauser DO, Dang Primary Care Provider OBERHAUSER, DANG Primary Care Unavailable HUNTER, GABRIELLA Referring Unavailable HUNTER, GABRIELLA Referring Unavailable OBERHAUSER, DANG Primary Care Unavailable FARIBA DOW Referring Unavailable OBERHAUSER, DANG Primary Care Unavailable O'ZAIDA, ODILON P Admitting Unavailable Billy'ZAIDA, ODILON P Attending Unavailable OBERHAUSER, DANG Primary Care Unavailable FARIBA DOW Referring Unavailable OBERHAUSER, DANG Primary Care Unavailable GABRIELLA HUNTER Referring Unavailable DANG GUTIERREZ Primary Care Unavailable Dang Gutierrez DO Primary Care Provider DANG GUTIERREZ Attending Unavailable OBDANG OWENS Referring Unavailable OBDANG OWENS Primary Care Unavailable OBDANG OWENS Attending Unavailable OBDANG OWENS Referring Unavailable OBDANG OWENS Primary Care Unavailable OBDANG OWENS Attending Unavailable OBDANG OWENS Primary Care Unavailable OBERMITZIERDANG Primary Care Unavailable Medications Current Medications Medication Drug Class(es) Dates Sig (Normalized) Sig (Original) acetaminophen 325 mg / HYDROcodone bitartrate 5 mg oral tablet (20 sources) Opioid Agonist Start: 05-14-2022 End: 05-17-2022 HYDROcodone-acetam inophen (NORCO) 5-325 MG per tablet Indications: Laceration of left hand without foreign body, initial encounter Take 1 tablet by mouth every 8 hours as needed for Pain for up to 3 days. Intended supply: 3 days. Take lowest dose possible to manage pain 10 tablet 0 05/14/2022 05/17/2022 Active Completed/Discontinued Medications Medication Drug Class(es) Dates Sig (Normalized) Sig (Original) acetaminophen 500 mg oral tablet (6 sources) take 1 tablet by mouth every eight hours as needed acetaminophen (TYLENOL EXTRA STRENGTH) 500 mg tablet Take 500 mg by mouth every 8 hours as needed. 0 Active Problems Active Problems Problem Classification Problem Date Documented Da te Episodic/Chronic Acute bronchitis (20 sources) Acute bronchitis; Translations: [Acute bronchitis] Episodic Adjustment disorders (20 sources) Stress; Translations: [Other psychological or physical stress, not elsewhere classified] Onset: 02-04-2023 02-04-2023 Chronic Disorders of lipid metabolism (3 sources) Hyperlipidemia; Translations: [Hyperlipidemia, unspecified] Onset: 05-21-2017 05-21-2017 Chronic Genitourinary symptoms and ill-defined conditions (20 sources) Female stress incontinence; Translations: [Stress incontinence, female] Onset: 06-17-2022 Chronic Menopausal disorders (6 sources) Atrophic vaginitis; Translations: [Postmenopausal atrophic vaginitis] Onset: 06-27-2014 06-27-2014 Chronic Menstrual disorders (4 sources) Irregular menstruation, unspecified; Translations: [Irregular menstruation, unspecified] Onset: 08-19-2023 Chronic Mood disorders (20 sources) Major depression in remission; Translations: [Major depressive affective disorder, single episode, in partial or unspecified remission] Onset: 02-04-2023 02-04-2023 Chronic Mood disorders (1 source) Mood disorders; Translations: [DEPRESSION UNSPECIFIED] Onset: 06-17-2022 Mycoses (20 sources) Onychomycosis; Translations: [Dermatophytosis of nail] Episodic Nutritional deficiencies (20 sources) Vitamin D deficiency; Translations: [Unspecified vitamin D deficiency] Onset: 08-19-2023 Chronic Nutritional deficiencies (18 sources) Cobalamin deficiency; Translations: [Other B-complex deficiencies] Onset: 08-19-2023 Episodic Open wounds of extremities (1 source) Laceration of hand without foreign body; Translations: [Laceration without foreign body of left hand, initial encounter] Episodic Other aftercare (20 sources) Surgical follow-up; Translations: [Encounter for removal of sutures] Episodic Other aftercare (1 source) Other unix consultant (current) drug therapy; Translations: [OTH QA LEAD CURRENT DRUG THERAPY] Onset: 06-17-2022 Episodic Other bone disease and musculoskeletal deformities (6 sources) Posterior calcaneal exostosis; Translations: [Juvenile osteochondrosis of tarsus, right ankle] Onset: 11-24-2019 01-15-2021 Chronic Other connective tissue disease (20 sources) Muscle weakness; Translations: [Muscle weakness (generalized)] Episodic Other connective tissue disease (20 sources) History of spinal fusion; Translations: [Arthrodesis status] Onset: 02-04-2023 02-04-2023 Episodic Other connective tissue disease (1 source) Muscle weakness (generalized); Translations: [Muscle weakness (generalized)] Onset: 09-22-2022 Episodic Other connective tissue disease (1 source) Pain in left lower limb; Translations: [Pain in left leg] Episodic Other connective tissue disease (1 source) Pain in left leg; Translations: [Pain in left leg] Onset: 05-12-2023 Episodic Other connective tissue disease (7 sources) Calcaneal spur of right foot; Translations: [Calcaneal spur of right foot] Onset: 11-15-2019 11-15-2019 Other connective tissue disease (10 sources) Right achilles tendonitis; Translations: [Tendonitis, Achilles, right] Onset: 11-15-2019 11-15-2019 Other female genital disorders (1 source) Pruritus of vagina; Translations: [Other specified noninflammatory disorders of vagina] Episodic Other gastrointestinal disorders (2 sources) History of diverticulitis; Translations: [Personal history of other diseases of the digestive system] Onset: 05-20-2023 05-27-2023 Episodic Other gastrointestinal disorders (2 sources) Personal history of other diseases of the digestive system; Translations: [Personal history of other diseases of the digestive system] Onset: 05-27-2023 Episodic Other inflammatory condition of skin (1 source) Intertrigo; Translations: [Erythema intertrigo] Episodic Other nervous system disorders (1 source) Polyneuropathy, unspecified; Translations: [POLYNEUROPATHY UNSPECIFIED] Onset: 06-17-2022 Chronic Other nervous system disorders (20 sources) Numbness; Translations: [Disturbance of skin sensation] Onset: 11-17-2022 Episodic Other nervous system disorders (2 sources) Anesthesia of skin; Translations: [Anesthesia of skin] Onset: 11-17-2022 Episodic Other non-traumatic joint disorders (1 source) Hip pain; Translations: [Pain in left hip] Episodic Other non-traumatic joint disorders (1 source) Pain in left hip; Translations: [Pain in left hip] Onset: 05-12-2023 Episodic Other non-traumatic joint disorders (6 sources) Pain of left wrist; Translations: [Left wrist pain] Onset: 02-27-2019 02-27-2019 Other nutritional; endocrine; and metabolic disorders (20 sources) Obesity; Translations: [Obesity, unspecified] Onset: 05-21-2017 05-21-2017 Chronic Other nutritional; endocrine; and metabolic disorders (20 sources) Body mass index 30+ - obesity; Translations: [Body Mass Index 39.0-39.9, adult] Chronic Other nutritional; endocrine; and metabolic disorders (6 sources) Obese class II; Translations: [Obesity, unspecified] Onset: 12-02-2020 12-02-2020 Chronic Other nutritional; endocrine; and metabolic disorders (1 source) Obesity, unspecified; Translations: [OBESITY UNSPECIFIED] Onset: 06-17-2022 Chronic Other nutritional; endocrine; and metabolic disorders (1 source) Body mass index (BMI) 40.0-44.9, adult; Translations: [BODY MASS INDEX BMI 40.0-44.9 ADULT] Onset: 06-17-2022 Chronic Other nutritional; endocrine; and metabolic disorders (2 sources) Body mass index (BMI) 38.0-38.9, adult; Translations: [Body mass index (BMI) 38.0-38.9, adult] Onset: 05-07-2023 Chronic Other screening for suspected conditions (not mental disorders or infectious disease) (20 sources) Patient encounter status; Translations: [Screening for diabetes mellitus] Onset: 08-19-2023 Episodic Other skin disorders (20 sources) Loss of hair; Translations: [Alopecia, unspecified] Episodic Other upper respiratory disease (20 sources) Seasonal allergy; Translations: [Allergic rhinitis, cause unspecified] Onset: 02-04-2023 02-04-2023 Chronic Other upper respiratory disease (20 sources) Allergic rhinitis; Translations: [Allergic rhinitis, cause unspecified] Chronic Other upper respiratory disease (2 sources) Other seasonal allergic rhinitis; Translations: [Other seasonal allergic rhinitis] Onset: 02-04-2023 Chronic Other upper respiratory infections (20 sources) Upper respiratory infection; Translations: [Acute upper respiratory infections of unspecified site] Episodic Prolapse of female genital organs (3 sources) Midline cystocele; Translations: [Cystocele, midline] Onset: 06-17-2022 Chronic Residual codes; unclassified (1 source) H/O Spinal surgery; Translations: [Hx of spinal surgery] Episodic Residual codes; unclassified (20 sources) History finding; Translations: [Other specified conditions influencing health status] Episodic Residual codes; unclassified (1 source) Acquired absence of both cervix and uterus; Translations: [ACQUIRED ABSENCE BOTH CERVIXANDUTERUS] Onset: 06-17-2022 Episodic Residual codes; unclassified (4 sources) Other specified postprocedural states; Translations: [Other specified postprocedural states] Onset: 02-04-2023 Episodic Screening and history of mental health and substance abuse codes (20 sources) H/O: anxiety state; Translations: [Personal history of other mental disorders] Episodic Screening or history of mental health and substance abuse (3 sources) Tobacco dependence syndrome; Translations: [Nicotine dependence, unspecified, uncomplicated] Onset: 05-21-2017 05-21-2017 Chronic Spondylosis; intervertebral disc disorders; other back problems (4 sources) Arthropathy of lumbar facet joint; Translations: [Unspecified inflammatory spondylopathy, lumbar region] Onset: 2016 2016 Chronic Spondylosis; intervertebral disc disorders; other back problems (20 sources) Degeneration of lumbar intervertebral disc; Translations: [Degeneration of lumbosacral intervertebral disc] Onset: 2016 2016 Chronic Spondylosis; intervertebral disc disorders; other back problems (20 sources) Lumbar radiculopathy; Translations: [Low back pain] Onset: 2016 2016 Episodic Sprains and strains (20 sources) Rupture of Achilles tendon; Translations: [Other sprains and strains of ankle] Episodic Substance-related disorders (7 sources) Tobacco user; Translations: [Nicotine dependence, unspecified, uncomplicated] Onset: 09-30-2005 09-30-2005 Chronic Unclassified (1 source) Unspecified sprain of left wrist, subsequent encounter / S63.502D(ICD-9) Onset: 04-26-2017 Unclassified (1 source) Intervertebral disc disorders w radiculopathy, lumbar region / M51.16(ICD-9) Onset: 05-06-2017 Unclassified (2 sources) Other intervertebral disc degeneration, lumbar region / M51.36(ICD-9) Onset: 04-07-2017 Unclassified (1 source) Radiculopathy, lumbar region / M54.16(ICD-9) Onset: 04-27-2017 Unclassified (1 source) Pain in left wrist / M25.532(ICD-9) Onset: 04-26-2017 Unclassified (2 sources) Nondisp fx of head of l rad, subs for clos fx w routn heal / S52.125D(ICD-9) Onset: 04-26-2017 Unclassified (2 sources) Low back pain / M54.5(ICD-9) Onset: 05-06-2017 Unclassified (2 sources) Nondisp fx of head of left radius, init for clos fx / S52.125A(ICD-9) Onset: 04-12-2017 Unclassified (1 source) History of falling / Z91.81(ICD-9) Onset: 04-12-2017 Past or Other Problems Problem Classification Problem Date Documented Da te Episodic/Chronic Abdominal pain (3 sources) Right upper quadrant pain; Translations: [Right upper quadrant pain] Onset: 05-21-2017 05-21-2017 Episodic Other bone disease and musculoskeletal deformities (1 source) Other specified disorders of bone density and structure, other site; Translations: [Oth disrd of bone density and structure, other site] Onset: 04-13-2022 Episodic Other connective tissue disease (20 sources) Calcaneal spur of right foot; Translations: [Calcaneal spur, right foot] Onset: 11-15-2019 11-15-2019 Episodic Other connective tissue disease (20 sources) Right achilles tendonitis; Translations: [Achilles tendinitis, right leg] Onset: 11-15-2019 11-15-2019 Episodic Other connective tissue disease (3 sources) Arthrodesis status; Translations: [Arthrodesis status] Onset: 09-22-2022 Episodic Other female genital disorders (6 sources) History of abnormal cervical Papanicolaou smear ; Translations: [Personal history of other diseases of the female genital tract] Onset: 06-13-2014 10-22-2016 Episodic Other injuries and conditions due to external causes (20 sources) Tendon injury; Translations: [Unspecified injury of right Achilles tendon, initial encounter] Onset: 01-22-2021 Episodic Other non-traumatic joint disorders (20 sources) Pain in left wrist; Translations: [Pain of left wrist] Onset: 02-27-2019 02-27-2019 Episodic Residual codes; unclassified (6 sources) History of orthopedic surgery; Translations: [Other specified postprocedural states] Onset: 01-15-2021 03-17-2021 Episodic Unclassified (3 sources) Family history of ischemic heart disease and other diseases of the circulatory system; Translations: [Family history of ischemic heart disease and other diseases of the circulatory system] Onset: 05-21-2017 05-21-2017 Episodic Unclassified (1 source) Nondisp fx of head of l rad, subs for clos fx w routn heal; Translations: [Nondisp fx of head of l rad, subs for clos fx w routn heal] Onset: 04-26-2017 Unclassified (1 source) Nondisp fx of head of left radius, init for clos fx; Translations: [Nondisp fx of head of left radius, init for clos fx] Onset: 04-12-2017 Unclassified (1 source) Other intervertebral disc degeneration, lumbar region; Translations: [Other intervertebral disc degeneration, lumbar region] Onset: 04-07-2017 Unclassified (1 source) Onset: 02-04-2023 02-04-2023 NEGATED: Highlighted row has not occurred!Residual codes; unclassified (4 sources) Disease Episodic Results Test Name Value Interpretation Reference Range Facil ity Vital Signs Date Time Vital Sign Value Performing Clinician Facility 05-27-2023 09:25-0400 Diastolic blood pressure 51 mm[Hg] Odilon Del Toro MD Work Phone: [facility] 05-27-2023 09:25-0400 Heart rate 54 /min [facility] 05-27-2023 09:25-0400 SaO2% (BldA) [Mass fraction] 98 % Odlion Del Toro MD Work Phone: [facility] 05-27-2023 09:25-0400 Systolic blood pressure 97 mm[Hg] Odilon Del Toro MD Work Phone: [facility] 05-27-2023 09:10-0400 Body temperature 98.4 [degF] dOilon Del Toro MD Work Phone: [facility] 05-27-2023 09:00-0400 Respiratory rate 13 /min Odilon Del Toro MD Work Phone: [employer] 05-27-2023 06:14-0400 Body height 177.8 cm Odilon Del Toro MD Work Phone: [facility] 05-27-2023 06:14-0400 Body mass index (BMI) [Ratio] 38.6 kg/m2 Odilon Del Toro MD Work Phone: [facility] 05-27-2023 06:14-0400 Body weight 122.02 kg Odilon Del Toro MD Work Phone: [facility] 02-04-2023 08:43-0400 Body height 179.1 cm Dang Oberhauser DO Work Phone: [facility] 02-04-2023 08:43-0400 Body mass index (BMI) [Ratio] 38.19 kg/m2 Dang Oberhauser DO Work Phone: [facility] 02-04-2023 08:43-0400 Body weight 122.47 kg Dang Oberhauser DO Work Phone: [facility] 02-04-2023 08:43-0400 Diastolic blood pressure 77 mm[Hg] Dang Oberhauser DO Work Phone: [facility] 02-04-2023 08:43-0400 Heart rate 68 /min Dang Oberhauser DO Work Phone: [facility] 02-04-2023 08:43-0400 Systolic blood pressure 119 mm[Hg] Dang Oberhauser DO Work Phone: [facility] 11-17-2022 12:04-0400 Body mass index (BMI) [Ratio] 38.97 kg/m2 Escobar Gifford MD Work Phone: [facility] 11-17-2022 12:04-0400 Body weight 123.2 kg Escobar Gifford MD Work Phone: [facility] 11-17-2022 12:04-0400 Diastolic blood pressure 77 mm[Hg] Escobar Gifford MD Work Phone: [facility] 11-17-2022 12:04-0400 Heart rate 56 /min Escobar Gifford MD Work Phone: [facility] 11-17-2022 12:04-0400 Systolic blood pressure 121 mm[Hg] Escobar Gifford MD Work Phone: [facility] 11-04-2022 09:04-0500 Body height 179.07 cm Dang L Oberhauser Work Phone: [facility] Work Phone: 11-04-2022 09:04-0500 Body mass index (BMI) [Ratio] 38.48 kg/m2 Dang L Oberhauser Work Phone: [facility] Work Phone: 11-04-2022 09:04-0500 Body surface area Derived from formula 2.39 m2 Dang L Oberhauser Work Phone: [facility] Work Phone: 11-04-2022 09:04-0500 Body weight 123.38 kg Dang L Oberhauser Work Phone: [facility] Work Phone: 11-04-2022 09:04-0500 Diastolic blood pressure 81 mm[Hg] Dang L Oberhauser Work Phone: [facility] Work Phone: 11-04-2022 09:04-0500 Heart rate 62 /min Dang L Oberhauser Work Phone: [facility] Work Phone: 11-04-2022 09:04-0500 Systolic blood pressure 121 mm[Hg] Dang L Oberhauser Work Phone: [facility] Work Phone: 08-18-2022 09:19-0500 Body height 179.07 cm Dang L Oberhauser Work Phone: [facility] Work Phone: 08-18-2022 09:19-0500 Body mass index (BMI) [Ratio] 37.34 kg/m2 Dang L Oberhauser Work Phone: [facility] Work Phone: 08-18-2022 09:19-0500 Body surface area Derived from formula 2.36 m2 Dang L Oberhauser Work Phone: [facility] Work Phone: 08-18-2022 09:19-0500 Body weight 119.75 kg Dang L Oberhauser Work Phone: [facility] Work Phone: 08-18-2022 09:19-0500 Diastolic blood pressure 78 mm[Hg] Dang L Oberhauser Work Phone: [facility] Work Phone: 08-18-2022 09:19-0500 Heart rate 65 /min Dang L Oberhauser Work Phone: [facility] Work Phone: 08-18-2022 09:19-0500 Systolic blood pressure 115 mm[Hg] Dang L Oberhauser Work Phone: [facility] Work Phone: 06-23-2022 11:03-0400 Body height 179.07 cm Dang L Oberhauser Work Phone: [facility] Work Phone: 06-23-2022 11:03-0400 Body mass index (BMI) [Ratio] 36.64 kg/m2 Dang L Oberhauser Work Phone: [facility] Work Phone: 06-23-2022 11:03-0400 Body surface area Derived from formula 2.34 m2 Dang L Oberhauser Work Phone: [facility] Work Phone: 06-23-2022 11:03-0400 Body weight 117.48 kg Dang L Oberhauser Work Phone: [facility] Work Phone: 06-23-2022 11:03-0400 Diastolic blood pressure 72 mm[Hg] Dang Maherer Work Phone: [facility] Work Phone: 06-23-2022 11:03-0400 Heart rate 77 /min Dang Maherer Work Phone: [facility] Work Phone: 06-23-2022 11:03-0400 Systolic blood pressure 137 mm[Hg] Dang Gutierrez Work Phone: [facility] Work Phone: 05-14-2022 11:26-0400 Body height 179.1 cm Alvin Webb MD Work Phone: [facility] [employer] 05-14-2022 11:26-0400 Body mass index (BMI) [Ratio] 36.78 kg/m2 Alvin Webb MD Work Phone: [facility] [employer] 05-14-2022 11:26-0400 Body temperature 97.9 [degF] Alvin Webb MD Work Phone: [facility] [employer] 05-14-2022 11:26-0400 Body weight 117.94 kg Alvin Webb MD [facility] 05-14-2022 11:26-0400 Diastolic blood pressure 89 mm[Hg] Alvin Webb MD Work Phone: [facility] 05-14-2022 11:26-0400 Heart rate 60 /min Alvin Webb MD Work Phone: [facility] 05-14-2022 11:26-0400 Respiratory rate 18 /min Alvin Webb MD Work Phone: [facility] 05-14-2022 11:26-0400 SaO2% (BldA) [Mass fraction] 100 % Alvin Webb MD Work Phone: [facility] 05-14-2022 11:26-0400 Systolic blood pressure 136 mm[Hg] Alvin Webb MD Work Phone: [facility] 04-28-2022 08:26-0400 Body height 179.07 cm Dang L Oberhauser Work Phone: [facility] Work Phone: 04-28-2022 08:26-0400 Body mass index (BMI) [Ratio] 36.78 kg/m2 Dang L Oberhauser Work Phone: [facility] Work Phone: 04-28-2022 08:26-0400 Body surface area Derived from formula 2.35 m2 Dang L Oberhauser Work Phone: [facility] Work Phone: 04-28-2022 08:26-0400 Body weight 117.94 kg Dang L Oberhauser Work Phone: [facility] Work Phone: 04-28-2022 08:26-0400 Diastolic blood pressure 78 mm[Hg] Dang L Oberhauser Work Phone: [facility] Work Phone: 04-28-2022 08:26-0400 Heart rate 91 /min Dang L Oberhauser Work Phone: [facility] Work Phone: 04-28-2022 08:26-0400 Systolic blood pressure 139 mm[Hg] Dang L Oberhauser Work Phone: [facility] Work Phone: 03-31-2022 14:16-0400 Body height 179.07 cm Dang L Oberhauser Work Phone: [facility] Work Phone: 03-31-2022 14:16-0400 Body mass index (BMI) [Ratio] 36.92 kg/m2 Dang L Oberhauser Work Phone: [facility] Work Phone: 03-31-2022 14:16-0400 Body surface area Derived from formula 2.35 m2 Dang Aleman Oberhauser Work Phone: [facility] Work Phone: 03-31-2022 14:16-0400 Body weight 118.39 kg Dang L Oberhauser Work Phone: [facility] Work Phone: 03-31-2022 14:16-0400 Diastolic blood pressure 76 mm[Hg] Dang L Oberhauser Work Phone: [facility] Work Phone: 03-31-2022 14:16-0400 Heart rate 75 /min Dang L Oberhauser Work Phone: [facility] Work Phone: 03-31-2022 14:16-0400 Systolic blood pressure 122 mm[Hg] Dang L Oberhauser Work Phone: [facility] Work Phone: 03-24-2022 07:23-0400 Body weight 119.2 kg Page De La Garza APRN.OBJECTS CONSERVATOR Work Phone: [facility] 03-24-2022 07:23-0400 Diastolic blood pressure 62 mm[Hg] Page De La Garza APRN.OBJECTS CONSERVATOR Work Phone: [facility] 03-24-2022 07:23-0400 Systolic blood pressure 110 mm[Hg] Page De La Garza APRN.OBJECTS CONSERVATOR Work Phone: [facility] 11-14-2021 11:16-0500 Body height 179.07 cm Dang L Oberhauser Work Phone: [facility] Work Phone: 11-14-2021 11:16-0500 Body mass index (BMI) [Ratio] 38.9 kg/m2 Dang L Oberhauser Work Phone: [facility] Work Phone: 11-14-2021 11:16-0500 Body surface area Derived from formula 2.4 m2 Dang L Oberhauser Work Phone: [facility] Work Phone: 11-14-2021 11:16-0500 Body temperature 97.9 [degF] Dang L Oberhauser Work Phone: [facility] Work Phone: 11-14-2021 11:16-0500 Body weight 124.74 kg Dang L Oberhauser Work Phone: [facility] Work Phone: 11-14-2021 11:16-0500 Diastolic blood pressure 76 mm[Hg] Dang L Oberhauser Work Phone: [facility] Work Phone: 11-14-2021 11:16-0500 Heart rate 76 /min Dang L Oberhauser Work Phone: [facility] Work Phone: 11-14-2021 11:16-0500 Systolic blood pressure 117 mm[Hg] Dang L Oberhauser Work Phone: [facility] Work Phone: 08-27-2021 09:14-0500 Body height 179.07 cm Dang L Oberhauser Work Phone: [facility] Work Phone: 08-27-2021 09:14-0500 Body mass index (BMI) [Ratio] 38.05 kg/m2 Dang L Oberhauser Work Phone: [facility] Work Phone: 08-27-2021 09:14-0500 Body surface area Derived from formula 2.38 m2 Dang L Oberhauser Work Phone: [facility] Work Phone: 08-27-2021 09:14-0500 Body weight 122.02 kg Dang L Oberhauser Work Phone: [facility] Work Phone: 08-27-2021 09:14-0500 Diastolic blood pressure 71 mm[Hg] Dang L Oberhauser Work Phone: [facility] Work Phone: 08-27-2021 09:14-0500 Systolic blood pressure 119 mm[Hg] Dang L Oberhauser Work Phone: [facility] Work Phone: 07-26-2021 11:09-0500 Body height 179.07 cm Dang L Oberhauser Work Phone: [facility] Work Phone: 07-26-2021 11:09-0500 Body mass index (BMI) [Ratio] 38.93 kg/m2 Dang L Oberhauser Work Phone: [facility] Work Phone: 07-26-2021 11:09-0500 Body surface area Derived from formula 2.4 m2 Dang L Oberhauser Work Phone: [facility] Work Phone: 07-26-2021 11:09-0500 Body temperature 98.2 [degF] Dang L Oberhauser Work Phone: [facility] Work Phone: 07-26-2021 11:09-0500 Body weight 124.83 kg Dang L Oberhauser Work Phone: [facility] Work Phone: 07-26-2021 11:09-0500 Diastolic blood pressure 78 mm[Hg] Dang L Oberhauser Work Phone: [facility] Work Phone: 07-26-2021 11:09-0500 Heart rate 92 /min Dang L Oberhauser Work Phone: [facility] Work Phone: 07-26-2021 11:09-0500 SaO2% (BldA) [Mass fraction] 96 % Dang L Oberhauser Work Phone: [facility] Work Phone: 07-26-2021 11:09-0500 Systolic blood pressure 120 mm[Hg] Dang L Oberhauser Work Phone: [facility] Work Phone: 07-08-2021 10:40-0400 Body height 179.07 cm Dang L Oberhauser Work Phone: [facility] Work Phone: 07-08-2021 10:40-0400 Body mass index (BMI) [Ratio] 39.33 kg/m2 Dang L Oberhauser Work Phone: [facility] Work Phone: 07-08-2021 10:40-0400 Body surface area Derived from formula 2.41 m2 Dang L Oberhauser Work Phone: [facility] Work Phone: 07-08-2021 10:40-0400 Body temperature 97.3 [degF] Dang L Oberhauser Work Phone: [facility] Work Phone: 07-08-2021 10:40-0400 Body weight 126.1 kg Dang L Oberhauser Work Phone: [facility] Work Phone: 07-08-2021 10:40-0400 Diastolic blood pressure 73 mm[Hg] Dang L Oberhauser Work Phone: [facility] Work Phone: 07-08-2021 10:40-0400 Heart rate 64 /min Dang L Oberhauser Work Phone: [facility] Work Phone: 07-08-2021 10:40-0400 Systolic blood pressure 123 mm[Hg] Dnag L Oberhauser Work Phone: [facility] Work Phone: 05-27-2021 10:36-0400 Body height 179.07 cm Dang L Oberhauser Work Phone: [facility] Work Phone: 05-27-2021 10:36-0400 Body mass index (BMI) [Ratio] 38.62 kg/m2 Dang L Oberhauser Work Phone: [facility] Work Phone: 05-27-2021 10:36-0400 Body surface area Derived from formula 2.39 m2 Dang L Oberhauser Work Phone: [facility] Work Phone: 05-27-2021 10:36-0400 Body temperature 97.9 [degF] Dang L Oberhauser Work Phone: [facility] Work Phone: 05-27-2021 10:36-0400 Body weight 123.83 kg Dang L Oberhauser Work Phone: [facility] Work Phone: 05-27-2021 10:36-0400 Diastolic blood pressure 76 mm[Hg] Dang L Oberhauser Work Phone: [facility] Work Phone: 05-27-2021 10:36-0400 Heart rate 77 /min Dang L Oberhauser Work Phone: [facility] Work Phone: 05-27-2021 10:36-0400 Systolic blood pressure 123 mm[Hg] Dang L Oberhauser Work Phone: [facility] Work Phone: 05-14-2021 09:31-0400 Body height 179.07 cm Dang L Oberhauser Work Phone: [facility] Work Phone: 05-14-2021 09:31-0400 Body mass index (BMI) [Ratio] 39.04 kg/m2 Dang L Oberhauser Work Phone: [facility] Work Phone: 05-14-2021 09:31-0400 Body surface area Derived from formula 2.41 m2 Dang L Oberhauser Work Phone: [facility] Work Phone: 05-14-2021 09:31-0400 Body temperature 97.6 [degF] Dang L Oberhauser Work Phone: [facility] Work Phone: 05-14-2021 09:31-0400 Body weight 125.19 kg Dang L Oberhauser Work Phone: [facility] Work Phone: 05-14-2021 09:31-0400 Diastolic blood pressure 69 mm[Hg] Dang Aleman Oberhauser Work Phone: [facility] Work Phone: 05-14-2021 09:31-0400 Heart rate 69 /min Dang Aleman Oberhauser Work Phone: [facility] Work Phone: 05-14-2021 09:31-0400 Systolic blood pressure 114 mm[Hg] Dang Aleman Oberhauser Work Phone: [facility] Work Phone: 02-12-2021 09:02-0400 Body height 179.07 cm Dang Rizzoermitzier Work Phone: [facility] Work Phone: 02-12-2021 09:02-0400 Body mass index (BMI) [Ratio] 38.19 kg/m2 Dang Rizzoerhauser Work Phone: [facility] Work Phone: 02-12-2021 09:02-0400 Body surface area Derived from formula 2.38 m2 Dang Rizzoerhauser Work Phone: [facility] Work Phone: 02-12-2021 09:02-0400 Body temperature 98.6 [degF] Dang Aleman Oberhauser Work Phone: [facility] Work Phone: 02-12-2021 09:02-0400 Body weight 122.47 kg Dang Aleman Oberhauser Work Phone: [facility] Work Phone: 02-12-2021 09:02-0400 Diastolic blood pressure 76 mm[Hg] Dang L Oberhauser Work Phone: [facility] Work Phone: 02-12-2021 09:02-0400 Heart rate 73 /min Dang Aleman Oberhauser Work Phone: [facility] Work Phone: 02-12-2021 09:02-0400 Systolic blood pressure 117 mm[Hg] Dang Aleman Oberhauser Work Phone: [facility] Work Phone: 01-01-2021 10:23-0400 Body height 179.07 cm Dang Oberhauser DO [facility] Work Phone: 01-01-2021 10:23-0400 Body mass index (BMI) [Ratio] 38.19 kg/m2 Dang Obermitzier DO [facility] Work Phone: 01-01-2021 10:23-0400 Body surface area Derived from formula 2.38 m2 Dang Obermitzier DO [facility] Work Phone: 01-01-2021 10:23-0400 Body temperature 98 [degF] Dang Obermitzier [facility] Work Phone: 01-01-2021 10:23-0400 Body weight 122.47 kg Dang Oberhauser DO [facility] Work Phone: 01-01-2021 10:23-0400 Diastolic blood pressure 70 mm[Hg] Dang Oberhauser DO [facility] Work Phone: 01-01-2021 10:23-0400 Heart rate 71 /min Dang Obermitzier [facility] Work Phone: 01-01-2021 10:23-0400 Systolic blood pressure 130 mm[Hg] Dang Gutierrez [facility] Work Phone: 05-21-2017 07:56-0400 BMI (Body Mass Index) 37.45 kg/m2 Rafiq Dave MD [facility] Work Phone: 05-21-2017 07:56-0400 Body Temperature 98.5 [degF] Rafiq Dave MD [facility] Work Phone: 05-21-2017 07:56-0400 BP Diastolic 72 mm[Hg] Rafiq Dave MD [facility] Work Phone: 05-21-2017 07:56-0400 BP Systolic 105 mm[Hg] Rafiq Dave MD [facility] Work Phone: 05-21-2017 07:56-0400 Height 177.8 cm Rafiq Dave MD [facility] Work Phone: 05-21-2017 07:56-0400 Pulse (Heart Rate) 59 /min Rafiq Dave MD [facility] Work Phone: 05-21-2017 07:56-0400 Respiratory Rate 16 /min Rafiq Dave MD [facility] Work Phone: 05-21-2017 07:56-0400 Weight 118.39 kg Rafiq Dave MD [facility] Work Phone: 2016 08:11-0500 BMI (Body Mass Index) 38.39 kg/m2 Rafiq Dave MD [facility] Work Phone: 2016 08:11-0500 Height 175.26 cm Rafiq Dave MD [facility] Work Phone: 2016 08:11-0500 Weight 117.94 kg Rafiq Dave MD [facility] Work Phone: Encounters Encounter Date Encounter Type Care Provider Facility Start: 08-20-2023 End: 08-21-2023 ambulatory DANG Aleman [facility] Start: 08-19-2023 End: 08-19-2023 ambulatory DANG L [facility] Start: 07-08-2023 End: 07-11-2023 ambulatory GABRIELLA HUNTER [facility] Start: 06-28-2023 End: 06-29-2023 ambulatory DANGNy GUTIERREZ [facility] Start: 05-27-2023 End: 05-27-2023 ambulatory ODILON DEL TORO [facility] Start: 05-27-2023 End: 05-27-2023 Subsequent hospital visit by physician Odilon Del Toro MD Work Phone: [facility] Procedures Date Procedure Procedure Detail Performing Clinician Start: 08-20-2023 Comprehensive metabo lic 2000 panel - Serum or Plasma DANG MARKUSER Start: 08-20-2023 Cyanocobalamin vitamin b-12 DANG OBERHAUSER Start: 08-20-2023 ESTROGENS, TOTAL DANG OBERHAUSER Start: 08-20-2023 FOLLICLE STIMULATING HORMONE DANG OBERHAUSER Start: 08-20-2023 Hemoglobin A1c/Hemoglobin.total in Blood DANG OBERHAUSER Start: 08-20-2023 Lipid panel DANG TREY JEREMI Start: 08-20-2023 LUTEINIZING HORMONE MANUEL AN OBERHAUSER Start: 08-20-2023 PROGESTERONE DANG TREY JEREMI Start: 08-20-2023 TSH WITH REFLEX TO F REE T4 IF ABNORMAL DANG OBHIRAMHAUSER Start: 08-20-2023 VITAMIN D 25-HYDROXY,TOTAL DANG OBERHAUSER Start: 05-27-2023 End: 05-27-2023 Colonoscopy Odilon Del Toro MD Work Phone: Start: 05-12-2023 Dup-scan lxtr art/ar tl bpgs uni/lmtd study Fariba PHILLIPS Work Phone: Start: 05-07-2023 FOLLOW UP IN FAMILY MEDICINE DANG GUTIERREZ Start: 07-29-2022 Lipid 1996 panel - S tammi or Plasma Dang Oberhauser DO Work Phone: Start: 06-08-2022 Radex spine lumbosac ral 2/3 views [facility] Start: 02-16-2022 Radex spine lumbosac ral 2/3 views [facility] Start: 01-09-2022 Radex spine lumbosac ral 2/3 views [facility] Start: 05-23-2021 Mammography Dang Trey jeremi DO Work Phone: Start: 05-21-2017 Lipid 1996 panel - S tammi or Plasma Mri (I-Stat/1.5t) Work Phone: Start: 05-21-2017 End: 05-24-2017 *CBC with Differential Rafiq shaw MD Work Phone: Start: 05-21-2017 End: 05-21-2017 *CMP Complete Metabolic Panel Rafiq Dave MD Work Phone: Start: 05-21-2017 End: 05-21-2017 HbA1c Rafiq Mcgraw Work Phone: Start: 05-21-2017 End: 05-21-2017 Lipid panel [AGGREGATE] Rafiq bhagat MD Work Phone: Start: 05-21-2017 End: 05-21-2017 Smoking cessation education Rafiq Dave MD Work Phone: Start: 05-21-2017 End: 05-21-2017 Thyroid stimulating hormone (TSH) Rafiq Dave MD Work Phone: Start: 05-21-2017 End: 05-21-2017 Thyroxine (T4) free Rafiq Mcgraw Work Phone: Start: 10-22-2016 Mammography Xr Mob Work Phone: History of No histor y of surgery Dang Gutierrez DO No history of surgery Dang Gutierrez Work Phone: Plan of Treatment Date Care Activity Detail Author Start: 05-27-2033 Screening for malignant neoplasm of colon [facility] Start: 05-14-2032 DTaP/Tdap/Td vaccine (2 - Td or Tdap) DTaP/Tdap/Td vaccine (2 - Td or Tdap) [facility] Start: 05-14-2032 DTaP/Tdap/Td vaccine (3 - Td or Tdap) DTaP/Tdap/Td vaccine (3 - Td or Tdap) [facility] Start: 05-14-2032 DTaP/Tdap/Td Vaccines (2 - Td or Tdap) DTaP/Tdap/Td Vaccines (2 - Td or Tdap) [facility] Start: 05-14-2032 Tetanus vaccination Tetanus: Every 10yrs [facility] Start: 05-14-2032 Urine microalbumin profile DTaP,Tdap,Td Vaccine (4 - Td or Tdap) [facility] Start: 09-22-2027 Tetanus vaccination Tetanus: Every 10yrs [facility] Start: 07-29-2027 Lipid panel Lipid Panel [facility] Start: 2024 Zoster Vaccines (1 of 2) Zoster Vaccines (1 of 2) [facility] Start: 06-07-2023 End: 06-07-2023 Patient encounter procedure 06/07/2023 9:20 AM EDT Office Visit [facility] [address] [place] [address], [address] [place] [address] Jean Serrano MD [address] [place] [address] [place] [address] f/u after MRI / Vascular testing [facility] Immunizations Immunization Date Immunization Notes Care Provider Fa cility 05-14-2022 tetanus toxoid, redu kp diphtheria toxoid, and acellular pertussis vaccine, adsorbed Alvin Webb MD Work Phone: [facility] Work Phone: 02-11-2021 Pfizer-BioNTech COVID-19 Vacc 30 MCG/0.3ML Intramuscular Suspension Dang Gutierrez Work Phone: [facility] Work Phone: 01-21-2021 Pfizer-BioNTech COVID-19 Vacc 30 MCG/0.3ML Intramuscular Suspension Dang Gutierrez Work Phone: [facility] Work Phone: 09-22-2017 tetanus toxoid, redu kp diphtheria toxoid, and acellular pertussis vaccine, adsorbed Dang Gutierrez Work Phone: [facility] Work Phone: 10-22-2016 influenza virus vaccine, unspecified formulation Mri (I-Stat/1.5t) Work Phone: [facility] Payers Date Payer Category Payer Medicare [id number] 2018 Unknown BITA LYNNE/JIAN/HMO/PPO xxxxxxxxxxxx 2018-Present [id number] .[id number] 2018 Unknown [id number] 1.2.840.520372.1.13.385.2.7.3 .909042.315 2018 Unknown 2014 Unknown [id number] 2014 Unknown [id number] 1974 Unknown [id number] .840.1.308153.3.579.2.903 1974 Unknown [id number] .840.1.670066.3.579.2.903 1974 Unknown [id number] .840.1.659053.3.579.2.90 1974 Unknown [id number] .16840.1.484523.3.579.2.903 1974 Unknown [id number] .16840.1.087908.3.579.2.903 1974 Unknown [id number] 2.16.840.1.148580.3.579.2.903 1974 Unknown [id number] 2.16.840.1.656529.3.579.2.90 1974 Unknown [id number] 2.16.840.1.302375.3.579.2.903 1974 Unknown [id number] 2.16.840.1.186644.3.579.2.903 1974 Unknown [id number] 2.16.840.1.459950.3.579.2.903 1974 Unknown [id number] 2.16.840.1.606490.3.579.2. 1974 Unknown [id number] 2.16.840.1.004034.3.579.2.90 1974 Unknown [id number] 2.16840.1.546819.3.579.2.90 1974 Unknown [id number] 2.16.840.1.803753.3.579.2.90 1974 Unknown [id number] 2.16.840.1.043784.3.579.23 1974 Unknown [id number] 2.16.840.1.784943.3.579.2.90 1974 Unknown [id number] 2.16.840.1.410241.3.579.2.903 1974 Unknown [id number] 2.16.840.1.444201.3.579.2.903 1974 Unknown [id number] 2.16.840.1.091994.3.579.2.3 1974 Unknown [id number] 2.16.840.1.045296.3.579.2.903 1974 Unknown [id number] 2.16.840.1.971174.3.579.2.903 1974 Unknown [id number] 2.16.840.1.203876.3.579.2. 1974 Unknown [id number] 2.16.840.1.805749.3.579.2 1974 Unknown [id number] 2.16.840.1.976525.3.579.2 1974 Unknown [id number] 2.16.840.1.209741.3.579.2 1974 Unknown [id number] 2.16.840.1.053749.3.579.2 1974 Unknown [id number] 2.16840.1.349943.3.579.2 1974 Unknown [id number] 2.840.1.924580.3.579.2 1974 Unknown [id number] 2.16840.1.423626.3.579.2 1974 Unknown [id number] 2.16840.1.251629.3.579.2 1974 Unknown [id number] 2.16840.1.285094.3.579.2 1974 Unknown [id number] 2.16840.1.580017.3.579.2 1974 Unknown [id number] 2.16840.1.688732.3.579.2 1974 Unknown [id number] 2.16840.1.409853.3.579.2 1974 Unknown [id number] 2.16.840.1.205587.3.579.2 1974 Unknown [id number] 2.16840.1.184516.3.579.2 1974 Unknown [id number] 2.16.840.1.597131.3.579.2.903 1974 Unknown [id number] 2.16.840.1.818929.3.579.2.903 1974 Unknown [id number] 2.16.840.1.046775.3.579.2.903 1974 Unknown [id number] 2.16.840.1.606572.3.579.2.903 1974 Unknown [id number] 2.16.840.1.628765.3.579.2.598 1974 Unknown [id number] 2.16.840.1.027106.3.579.2.598 1974 Unknown [id number] 2.16.840.1.451611.3.579.2.106 9 1974 Unknown [id number] 2.16840.1.010572.3.579.2.106 9 1974 Unknown [id number] 2.16.840.1.182149.3.579.2.106 9 1974 Unknown [id number] 2.16.840.1.497566.3.579.2.106 9 1974 Unknown [id number] 2.16.840.1.553913.3.579.2.106 9 1974 Unknown [id number] 2.16840.1.788570.3.579.2.106 9 1974 Unknown [id number] 2.16.840.1.415657.3.579.2.106 9 1974 Unknown [id number] 2.16.840.1.279269.3.579.2.106 9 1974 Unknown [id number] 2.16.840.1.581606.3.579.2.106 9 1974 Unknown [id number] 2.16.840.1.484661.3.579.2.106 9 1974 Unknown [id number] 2.16.840.1.783509.3.579.2.106 9 1974 Unknown [id number] 2.16.840.1.702210.3.579.2.106 9 1974 Unknown [id number] 2.16.840.1.880194.3.579.2.106 9 1974 Unknown [id number] 2.16.840.1.039247.3.579.2.106 9 1974 Unknown [id number] 2.16.840.1.932680.3.579.2.106 9 1974 Unknown [id number] 2.16.840.1.729513.3.579.2.106 9 1974 Unknown [id number] 2.16.840.1.629649.3.579.2.106 9 1974 Unknown [id number] 2.16.840.1.222571.3.579.2.106 9 1974 Unknown [id number] 2.16.840.1.572342.3.579.2.106 9 1974 Unknown [id number] 2.16.840.1.616201.3.579.2.356 1974 Unknown [id number] 2.16.840.1.895609.3.579.2.356 1974 Unknown [id number] 2.16.840.1.771957.3.579.2.356 1974 Unknown [id number] 2.16.840.1.624890.3.579.2.356 1974 Unknown [id number] 2.16.840.1.070698.3.579.2.356 1974 Unknown [id number] 2.16.840.1.060323.3.579.2.356 1974 Unknown [id number] 2.16.840.1.479517.3.579.2.356 1974 Unknown [id number] 2.16.840.1.065249.3.579.2.356 1974 Unknown [id number] 2.16.840.1.363812.3.579.2.356 1974 Unknown [id number] 2.16.840.1.689595.3.579.2.356 1974 Unknown [id number] 2.16.840.1.217149.3.579.2.903 1974 Unknown [id number] 2.16.840.1.668448.3.579.2.903 1974 Unknown [id number] 2.16.840.1.312684.3.579.2.903 1974 Unknown [id number] 2.16.840.1.323352.3.579.2.903 1974 Unknown [id number] 2.16.840.1.116114.3.579.2.903 1974 Unknown [id number] 2.16.840.1.818983.3.579.2.900 1974 Unknown [id number] 2.16.840.1.062249.3.579.2.900 1974 Unknown [id number] 2.16.840.1.004488.3.579.2.900 1974 Unknown [id number] 2.16.840.1.865164.3.579.2.900 1974 Unknown [id number] 2.16.840.1.882569.3.579.2.900 1974 Unknown [id number] 2.16.840.1.004986.3.579.2.900 1974 Unknown [id number] 2.16.840.1.531662.3.579.2.900 1974 Unknown [id number] 2.16.840.1.388741.3.579.2.900 1974 Unknown [id number] 2.16.840.1.641284.3.579.2.900 1974 Unknown [id number] 2.16.840.1.524961.3.579.2.900 1974 Unknown [id number] 2.16.840.1.006836.3.579.2.185 1974 Unknown [id number] 2.16.840.1.104060.3.579.2.182 1974 Unknown [id number] 2.16.840.1.075140.3.579.2.182 1974 Unknown [id number] 2.16.840.1.263754.3.579.2.182 1974 Unknown [id number] 2.16.840.1.467759.3.579.2.182 1974 Unknown [id number] 2.16.840.1.066791.3.579.2.182 1974 Unknown [id number] 2.16.840.1.117500.3.579.2.124 4 1974 Unknown [id number] 2.16.840.1.792135.3.579.2.124 4 1974 Unknown [id number] 2.16.840.1.933336.3.579.2.124 4 1974 Unknown [id number] 2.16.840.1.484761.3.579.2.124 5 1972 Unknown [id number] 2.16.840.1.032573.3.579.2.903 1959 Unknown [id number] Social History Date Type Detail Facility Start: 02-27-2019 Tobacco smoking status GAIS Unknown if ever smoked [facility] Start: 1975 Sex Assigned At Not on file [facility] Start: 12-02-2020 End: 05-14-2022 Tobacco smoking status NHIS Current every day smoker [facility] Start: 12-02-2020 End: 03-24-2022 Cigarettes smoked current (pack per day) - Reported [facility] Medical Equipment Procedure Code Equipment Code Equipment Origin al Text Equipment Identifier Dates [id number] Implant - [id number] Start: 12-03-2020 Functional Status Date Assessment Result Facility NEGATED: Highlighted row Functional performance Functional status health issues are not documented Disease [facility] Work Phone: Mental Status Date Assessment Result Facility NEGATED: Highlighted row Cognitive function [Interpretation] Cognitive status health issues are not documented Disease [facility] Work Phone: Clinical Notes 09-30-2005 to 05-27-2023 Discharge InstructionsDang Gutierrez DO - 02/04/2023 8:40 AM EDTEscobar Gifford MD - 11/17/2022 11:53 AM EDTGbrady Vizcarra MD - 10/23/2022 7:56 AM ESTPatient Instructions Note Date & Type Note Facility 05-27-2023 Hospital Discharge instructions Odilon Del Toro MD - 05/27/2023 8:19 AM EDT Normal post colonoscopy instructions Patient to call office next week regarding polyp results Patient recommended to have a high-fiber diet including fiber supplements for underlying diverticular disease Repeat colonoscopy in 10 years for screening purposes No driving today documented in this encounter [facility] 02-04-2023 History of Present illness Narrative Subjective Patient ID: Tammi Correa is a 47 y.o. female who presents for Follow-up (3 month). HPI Patient is here today for 3 mo follow up Patient reports that she saw Dr Flower and had nerve ablation, no significant change in her pain. She did see another back surgeon for a second opinion, recommended that she stop all of her pain medications and strengthen her back. Review of Systems Musculoskeletal: Positive for back pain. Objective BP 119/77 (BP Location: Right arm, Patient Position: Sitting, BP Cuff Size: Adult) Pulse 68 Ht 1.791 m (5' 10.5 ) Wt 122 kg (270 lb) BMI 38.19 kg/m Physical Exam Constitutional: General: She is not in acute distress. Appearance: Normal appearance. Neurological: Mental Status: She is alert. Psychiatric: Mood and Affect: Mood normal. Behavior: Behavior normal. Thought Content: Thought content normal. Assessment/Plan Problem List Items Addressed This Visit Nervous S/P spinal fusion - Primary Musculoskeletal Degeneration of intervertebral disc of lumbosacral region Other Back pain with history of spinal surgery Depression, major, in remission (CMS/HCC) Seasonal allergies 1. Chronic back pain - has had lumbar redo laminectomy with facetectomy and foraminotomy L5 left, lumbar laminated with partial S1, excision of perineural cyst, combined posterior lumbar interbody fusion and posterolateral fusion L5-S1, placement of interbody cage to lumbar InterSpace L5-s1, nonsegmental pedicle screw fixation L5-s1, complicated by infection and required washout and I&D , has done multiple injections and nerve ablation last Wednesday has not noticed any significant change - following with Neurosurgery and Pain Management - continue Lyrica 150mg po tid - continue tizanidine - will place referral for Dr Serrano in [place] for a second opinion 2. Depression - exacerbated by recurrent health conditions, chronic pain, then sudden of her son last year - she decided not take the celexa after reading side effects, she is currently not taking anything 3. B12 deficiency - continue supplementation 4. Vit d def - on po high dose once wekly vit d Final diagnoses: [Z98.1] S/P spinal fusion [M51.37] Degeneration of intervertebral disc of lumbosacral region [J30.2] Seasonal allergies [F32.5] Depression, major, in remission (CMS/HCC) [M54.9] Back pain with history of spinal surgery documented in this encounter [facility] Work Phone: 11-17-2022 History of Present illness Narrative NEURO-ONCOLOGY CLINIC NEW PATIENT NOTE Diagnosis: 1. DDD (degenerative disc disease), cervical 2. Numbness 3. Radiculopathy, unspecified spinal region 4. DDD (degenerative disc disease), lumbosacral 5. Back pain, unspecified back location, unspecified back pain laterality, unspecified chronicity Oncology History: Oncology History No history exists. Neuro-Onc Treatment and Symptom History: HPI Pt is a 47 yo PMH who was referred for lumbar spondylosis. Interval HX - Numbness: Worsening radiculopathy and pain in mainly left leg. Feels intermittent worsening numbness throughout legs and worsening back pain. Tried PT which did not help. F/U with Dr. Aviles in [place], which resulted in a myelogram and CT, records not in computer. In 12/2021 underwent spinal fusion L5-S1, which resulted worsening pain in the leg. Got a post surgical infection s/p antibiotics. Reported negative CT scan for osteomyelitis. Underwent wound clean out few days after. EMG and 10/2022 was negative in UE and LE. GBP or Cymbalta did not help. Currently on Lyrica and tramadol with little improvement . Difficult to clean house or ride a motorcycle. F/[facility] [place]), for chronic back pain, recent injection end of Aug. Rec nerve block and possible nerve stimulator. Previously noted Slight grade 1 anterolisthesis L4-L5 and L5-S1 on imaging Review of Systems:Review of Systems - General ROS: negative Psychological ROS: negative Ophthalmic ROS: negative ENT ROS: negative Respiratory ROS: no cough, shortness of breath, or wheezing Cardiovascular ROS: no chest pain or dyspnea on exertion Gastrointestinal ROS: no abdominal pain, change in bowel habits, or black or bloody stools Genito-Urinary ROS: no dysuria, trouble voiding, or hematuria Neurological ROS: positive for - numbness/tingling and weakness Dermatological ROS: negative Past Medical History: Diagnosis Date Difficulty walking Past Surgical History: Procedure Laterality Date ACHILLES TENDON SURGERY Right 12/03/2020 HYSTERECTOMY 2006 LUMBAR FUSION Family History Problem Relation Age of Onset No Known Problems Mother No Known Problems Father Ataxia Neg Hx Mental retardation Neg Hx Social History Tobacco Use Smoking status: Some Days Packs/day: 0.25 Types: Cigarettes Smokeless tobacco: Never Tobacco comments: 1 pack per month Vaping Use Vaping Use: Never used Substance Use Topics Alcohol use: Yes Comment: ocassional Drug use: Never Allergies: No Known Allergies Medications: Outpatient Encounter Medications as of 11/17/2022 Medication Sig Dispense Refill alendronate sodium/vitamin D3 (ALENDRONATE-VITAMIN D3 ORAL) Take by mouth . traMADoL (ULTRAM) 50 mg tablet TAKE 1 TABLET BY MOUTH EVERY 4 TO 6 HOURS NEEDED FOR PAIN gabapentin (NEURONTIN) 300 MG capsule Take 300-600 mg by mouth 3 (three) times a day . HYDROcodone-acetaminophen (NORCO) 5-325 mg per tablet Take 1 (one) tablet by mouth every 6 (six) hours as needed for pain . phentermine (ADIPEX-P) 37.5 mg tablet Take 1 (one) tablet (37.5 mg total) by mouth daily as directed . pregabalin (Lyrica) 100 MG capsule Lyrica tiZANidine (ZANAFLEX) 4 MG tablet TAKE 1 OR 2 TABLETS EVERY 8 HOURS NEEDED. zinc gluconate 50 mg tablet Take 1 (one) tablet (50 mg total) by mouth daily . [DISCONTINUED] ascorbic acid, vitamin C, (vitamin C) 1000 MG tablet Take 1,000 mg by mouth daily . No facility-administered encounter medications on file as of 11/17/2022. General Examination: This is an adult female of average build and good nourishment. Patient rests comfortably in the examination chair and is in no acute distress. Vital signs: Blood pressure 121/77, pulse (!) 56, weight 123.2 kg (271 lb 9.6 oz). No pallor, cyanosis, clubbing or lymphadenopathy noted. Mood appropriate to circumstance and verbally interactive. HEENT: Atraumatic and normocephalic. Oropharynx is normal. No thrush. Mucous membranes pink, moist, intact. Respiratory: Clear to auscultation bilaterally, no wheezing, rhonchi, or rales. Cardiovascular: S1-S2 normal with no murmurs or added sounds. No edema on extremities. Abdomen: Soft, non-distended with normal bowel sounds, no palpable masses. Skin: intact, warm and dry, without rash, lesions. Psych: Normal affect Neurological Examination: The patient is conscious, alert and oriented x 3. Naming 4/4, Able to follow 2-3 step commands. Able to say months of the year backwards. Speech and comprehension are normal. CRANIAL NERVES: PERRLA +3 bilaterally, EOMI, conjugate gaze without nystagmus, visual nuñez full to confrontation, hearing grossly intact to finger rub. No facial asymmetry, facial sensations are normal. Tongue and uvula are midline. Head turning and shoulder shrug are normal. MOTOR: 5/5 strength in both upper and lower extremities. Normal bulk, tone and power. No pronator drift. SENSORY: Light touch vibration, and temperature intact. REFLEXES: DTRs +2 bilaterally. CEREBELLAR: No cerebellar or meningeal signs; heel to patel intact, negative Romberg, Thai intact in bilateral upper and lower extremities. Gait and stance are normal, mild difficulty with tandem,. Labs: Below is the patient's most recent value for Albumin, ALT, AST, BUN, Calcium, Chloride, Cholesterol, CO2, Creatinine, GFR, Glucose, HDL, Hematocrit, Hemoglobin, Hemoglobin A1C, LDL, Magnesium, Phosphorus, Platelets, Potassium, PSA, Sodium, Triglycerides, TSH and WBC. Lab Results Component Value Date BUN 6 (L) 06/13/2021 CALCIUM 9.3 06/13/2021 CL 110 (H) 06/13/2021 CREATININE 0.86 06/13/2021 K 4.0 06/13/2021 NA 143 06/13/2021 Note: for a comprehensive list of the patient's lab results, access the Results Review activity. Radiologic Studies: LE EMG 08/2022 WNL, no signs of neuropathy, radiculopathy or entrapment neuropathy EMG 10/23/22 Impression: This is a normal EMG. There is NO clear electrodiagnostic evidence of a bilateral cervical radiculopathy, brachial plexopathy, entrapment neuropathy, median or ulnar neuropathy at this time. EMG Summary: The bilateral median and ulnar motor and sensory nerve conduction studies were normal. The bilateral radial sensory nerve conduction studies were also normal. Needle EMG of the tested muscle showed no abnormal spontaneous activity. Normal motor unit action potentials and recruitment patterns were seen. C Laboratory results reviewed. Radiology study reports reviewed and are pertinent for findings as per the HPI. Radiology studies independently visualized and are pertinent for findings as per the HPI. IBelow is the patient's most recent value for Albumin, ALT, AST, BUN, Calcium, Chloride, Cholesterol, CO2, Creatinine, GFR, Glucose, HDL, Hematocrit, Hemoglobin, Hemoglobin A1C, LDL, Magnesium, Phosphorus, Platelets, Potassium, PSA, Sodium, Triglycerides, TSH and WBC. Lab Results Component Value Date BUN 6 (L) 06/13/2021 CALCIUM 9.3 06/13/2021 CL 110 (H) 06/13/2021 CREATININE 0.86 06/13/2021 K 4.0 06/13/2021 NA 143 06/13/2021 Note: for a comprehensive list of the patient's lab results, access the Results Review activity. have reviewed patient's [facility] and outside medical records. Summary findings include as summarized in the HPI Assessment and Plan: This is a 47 y.o. female PMH DDD C, T and L s/p L5-S1 fusion, chronic pain who presents today in the Neuro-Oncology outpatient clinic for MD visit for Lumbar spondylosis. Chronic worsening back pain with LE numbness and radiculopathy over past several months. EMG in UE and LE negative for neuropathy. Neuro exam consistent with HX of DDD. She's tried numerous meds, injections and PT without improvement. Pt would like a second opinion with spine clnic for potential treatments, referral placed. Continue to F/U with pain clinic in [place] for management. RTC PRN. - Request OSH imaging - Referred to ortho spine as above - Continue to F/U with pain clinic - RTC PRN I spent more than?60 minutes with?Mrs. Correa,?over half of the time was spent in review of imaging and data, coordination of care and counseling regarding treatment management. Escobar Gifford MD Division of Neuro-Oncology documented in this encounter [facility] 11-04-2022 History of Present illness Narrative Patient is here today for 2-3 mo follow upShe has been seeing Dr Flower in [place] for pain management. She had an epidural injection in her back and she had no relief and no improvement with that so she had two more injections in another part of her spine. She was told not to do anything for the next 24 hours. She states that she was standing at the title office and she suddenly could not move her left leg, that has don t that a few more times since. She has an appt on 11/12/22. She is currently still on Lyrica and tramadol and tylenol.Last appt we had increased her effexor, she says that she just does not care to jack n this world anymore. PAtient has not been to see her counselor in Sep because [facility], asked if they can do telephone visit if physically cannot get in. has been working out of town all week so she is alone often.It has now been 6 mo since her son was killed this past summer.She had an EMG on cervical areas which showed normal median and ulnar nerve. [facility] Work Phone: 10-23-2022 History of Present illness Narrative Images from the original note were not included. [facility] - Neurology [address], [address] [place] [phone] Nerve Conduction & EMG Report Patient: Tammi Correa Sex: Female Date of : 1975 Visit Date: 10/23/2022 7:58 AM Age: 46 Years Examining MD: Vahe Vizcarra MD Referred by: Dr. Gutierrez Temperature: 32.4 Current Height: 5 feet 10 inch Referred for: BUE paresthesia. + neck pain. Plan: This study is design to evaluate for entrapment neuropathy, median or ulnar neuropathy, radiculopathy, or brachial plexopathy. Procedure indication, side effects, complications, risk and alternatives were explain. Patient agreed to proceed with verbal consent obtain. Patient was instructed to clean the puncture site with soap and water and put some ice pack for bruising. Impression: This is a normal EMG. There is NO clear electrodiagnostic evidence of a bilateral cervical radiculopathy, brachial plexopathy, entrapment neuropathy, median or ulnar neuropathy at this time. EMG Summary: The bilateral median and ulnar motor and sensory nerve conduction studies were normal. The bilateral radial sensory nerve conduction studies were also normal. Needle EMG of the tested muscle showed no abnormal spontaneous activity. Normal motor unit action potentials and recruitment patterns were seen. Vahe Vizcarra MD Diplomate, ABPN, NBPAS Clinical Neurophysiology, Neurology, Vascular Neurology and Sleep Medicine [facility], [place], [place] [phone] Motor NCS Nerve / Sites Muscle Latency Amplitude Distance Velocity ms mV cm m/s R Median - APB Wrist APB 3.21 15.3 7 Elbow APB 7.63 13.8 24 54.3 L Median - APB Wrist APB 3.38 13.4 7 Elbow APB 7.79 10.6 23 52.1 R Ulnar - ADM Wrist ADM 2.85 10.2 6.5 B.Elbow ADM 7.04 8.3 25 59.7 A.Elbow ADM 8.94 8.3 10 52.7 L Ulnar - ADM Wrist ADM 2.46 11.7 6.5 B.Elbow ADM 6.46 10.9 24 60.0 A.Elbow ADM 8.58 10.1 11 51.8 Sensory NCS Nerve / Sites Peak Amp Amp.2-3 Distance Velocity ms V V cm m/s R Median - Digit II Wrist 3.06 40.2 67.8 13 55 L Median - Digit II Wrist 3.25 41.4 64.8 13 49 R Ulnar - Digit V Wrist 2.77 24.5 74.0 11 51 L Ulnar - Digit V Wrist 2.71 31.8 50.7 11 52 R Radial - Snuff Forearm 2.31 32.2 43.4 10 53 L Radial - Snuff Forearm 2.17 25.7 15.2 10 61 EMG Summary Table Spontaneous Activity Amplitude Duration Recruitment Polyphasia Comment Muscle Ins Act Fib PSW Fasc - - - - - L. Cervical paraspinals Normal 0 0 0 Normal Normal Normal Normal Normal L. Deltoid Normal 0 0 0 Normal Normal Normal Normal Normal L. Triceps brachii Normal 0 0 0 Normal Normal Normal Normal Normal L. Biceps brachii Normal 0 0 0 Normal Normal Normal Normal Normal L. Pronator teres Normal 0 0 0 Normal Normal Normal Normal Normal L. Extensor digitorum communis Normal 0 0 0 Normal Normal Normal Normal Normal L. First dorsal interosseous Normal 0 0 0 Normal Normal Normal Normal Normal L. Abductor pollicis brevis Normal 0 0 0 Normal Normal Normal Normal Normal R. Cervical paraspinals Normal 0 0 0 Normal Normal Normal Normal Normal R. Deltoid Normal 0 0 0 Normal Normal Normal Normal Normal R. Triceps brachii Normal 0 0 0 Normal Normal Normal Normal Normal R. Biceps brachii Normal 0 0 0 Normal Normal Normal Normal Normal R. Pronator teres Normal 0 0 0 Normal Normal Normal Normal Normal R. Extensor digitorum communis Normal 0 0 0 Normal Normal Normal Normal Normal R. First dorsal interosseous Normal 0 0 0 Normal Normal Normal Normal Normal R. Abductor pollicis brevis Normal 0 0 0 Normal Normal Normal Normal Normal documented in this encounter [facility] 08-20-2022 Note HNO ID: [id number] Author: RT Mini(Pavan) Service: ? Author Type: Technologist Type: Progress Notes Filed: 08/20/2022 1:02 PM Note Text: Radiology Service Progress Note PATIENT NAME: Tammi Correa DATE OF SERVICE: August 20, 2022 TIME: 12:28 PM PATIENT IDENTITY VERIFICATION COMPLETED USING TWO (2) IDENTIFIERS: Name and Date of confirmed by patient verbally. FALL SCREENING: Has the patient had 2 falls in the last year or 1 fall with injury or currently using an Ambulatory Assistive Device (Walker, Cane, Wheelchair, Crutches, etc.)? No PATIENT GENDER DATA: Female. status: : No status: NO. PATIENT RELEVANT IMPLANT DATA REVIEWED: Not Applicable RADIOLOGY DEPARTMENT: MR; Exam(s) Completed: Spine: Cervical spine PERIPHERAL IV DATA: Not applicable SIGNED BY: Vaishali [facility] August 20, 2022 12:28 PM [facility] 08-20-2022 History of Present illness Narrative Radiology Service Progress Note PATIENT NAME: Tammi Correa DATE OF SERVICE: August 20, 2022 TIME: 12:28 PM PATIENT IDENTITY VERIFICATION COMPLETED USING TWO (2) IDENTIFIERS: Name and Date of confirmed by patient verbally. FALL SCREENING: Has the patient had 2 falls in the last year or 1 fall with injury or currently using an Ambulatory Assistive Device (Walker, Cane, Wheelchair, Crutches, etc.)? No PATIENT GENDER DATA: Female. status: : No status: NO. PATIENT RELEVANT IMPLANT DATA REVIEWED: Not Applicable RADIOLOGY DEPARTMENT: MR; Exam(s) Completed: Spine: Cervical spine PERIPHERAL IV DATA: Not applicable SIGNED BY: Vaishali [facility] August 20, 2022 12:28 PM documented in this encounter [facility] 07-01-2022 Note HNO ID: [id number] Author: RT Bhaskar(R) Service: ? Author Type: Technologist Type: Progress Notes Filed: 07/01/2022 9:25 AM Note Text: Radiology Service Progress Note PATIENT NAME: Tammi Correa DATE OF SERVICE: July 01, 2022 TIME: 9:17 AM PATIENT IDENTITY VERIFICATION COMPLETED USING TWO (2) IDENTIFIERS: Name and Date of confirmed by patient verbally. FALL SCREENING: Has the patient had 2 falls in the last year or 1 fall with injury or currently using an Ambulatory Assistive Device (Walker, Cane, Wheelchair, Crutches, etc.)? No PATIENT GENDER DATA: Female. status: : No status: NO. PATIENT RELEVANT IMPLANT DATA REVIEWED: Not Applicable RADIOLOGY DEPARTMENT: General X-ray: Exam(s) Completed: Spine X-Ray(s): Cervical AP / LAT PERIPHERAL IV DATA: Not applicable SIGNED BY: RT Bhaskar(R) July 01, 2022 9:17 AM [facility] 06-09-2022 History of Present illness Narrative Poor tolerance to exercise. Did introduce standing core exercises this date. Increased numbness of L LE in standing requires constant weight shifts onto R LE to avoid numbness down entire L LE. Pain in supine position and intermittently when on R s/l. Increased restriction of L IT band, glutes, and lumbar paraspinals. Pain at 8/10 at end of session. Instructed to call and follow-up when allowed following upcoming surgery. Unable to utilize aquatic based therapy at this point d/t incontinence. [facility] Work Phone: 06-08-2022 Note HNO ID: [id number] Author: RT Mini(R) Service: ? Author Type: Technologist Type: Progress Notes Filed: 06/08/2022 9:10 AM Note Text: Radiology Service Progress Note PATIENT NAME: Tammi Correa DATE OF SERVICE: June 08, 2022 TIME: 9:10 AM PATIENT IDENTITY VERIFICATION COMPLETED USING TWO (2) IDENTIFIERS: Name and Date of confirmed by patient verbally. FALL SCREENING: Has the patient had 2 falls in the last year or 1 fall with injury or currently using an Ambulatory Assistive Device (Walker, Cane, Wheelchair, Crutches, etc.)? No PATIENT GENDER DATA: Female. status: : No status: NO. PATIENT RELEVANT IMPLANT DATA REVIEWED: Not Applicable RADIOLOGY DEPARTMENT: General X-ray: Exam(s) Completed: Spine X-Ray(s): Lumbar AP / LAT / L5-S1 PERIPHERAL IV DATA: Not applicable SIGNED BY: RT Mini(R) June 08, 2022 9:10 AM [facility] 06-08-2022 History of Present illness Narrative Radiology Service Progress Note PATIENT NAME: Tammi Correa DATE OF SERVICE: June 08, 2022 TIME: 9:10 AM PATIENT IDENTITY VERIFICATION COMPLETED USING TWO (2) IDENTIFIERS: Name and Date of confirmed by patient verbally. FALL SCREENING: Has the patient had 2 falls in the last year or 1 fall with injury or currently using an Ambulatory Assistive Device (Walker, Cane, Wheelchair, Crutches, etc.)? No PATIENT GENDER DATA: Female. status: : No status: NO. PATIENT RELEVANT IMPLANT DATA REVIEWED: Not Applicable RADIOLOGY DEPARTMENT: General X-ray: Exam(s) Completed: Spine X-Ray(s): Lumbar AP / LAT / L5-S1 PERIPHERAL IV DATA: Not applicable SIGNED BY: RT Mini(R) June 08, 2022 9:10 AM documented in this encounter [facility] 05-16-2022 History of Present illness Narrative Patient tolerated treatment with increased pain to 9/10 in low back. Patient has weak TrA and keeps intact with ther-ex. Patient has good form/understanding of ther-ex, once shown. Patient needing one UE support with LE ther-ex and no support jessica 100% unloading. Continue with core stability while performing dyn activity to decrease pain. [facility] Work Phone: 04-22-2022 History of Present illness Narrative Patient is here today for 1 mo follow upPatient is not doing well, unfortunately her 23 year old son was killed in an accident this past week, was riding in side by side and was ejected from the vehicle. He was there only child. She is understandably devastated. Going later today to the home to start preparation.She has not had any change with increasing the Cymbalta.She is supposed to do therapy for her back.had an appt to see uro-press set up for her incontinence but will need to reschedule due to her sons this week. [facility] Work Phone: 03-24-2022 Note HNO ID: [id number] Author: Page De La Garza APRN.OBJECTS CONSERVATOR Service: ? Author Type: Nurse Practitioner Type: Progress Notes Filed: 03/24/2022 10:04 AM Note Text: Bella is a 46 year old who presents for an annual gynecologic exam with complaints, vaginal burning and rash. Finished 2 months of antibiotics - at least 4 different antibiotics - 2 weeks ago following spinal fusion. Was doubling antibiotics. Also has burning but no discharge. Has had incontinence for many years and wears a pad 29/03 so she is not sure if cause is yeast or incontinence. Has lost 10 lbs since surgery with increased protein using shakes, cutting out carbs and pop - congratulated.. Menses: hysterectomy, ovaries remain for HMB Contraception: hysterectomy HPV vaccine: No Last Pap: 10/28/2016 normal vaginal vault HPV: 06/28/2014 negative History of abnormal pap: Yes, +HPV, colposcopy Last mammogram: 2020normal Abnormal mammogram: none Sexually active: No Hot flashes: Yes Night sweats: Yes OB History T0 L1 SAB0 IAB0 Ectopic0 Multiple0 Live Births0 [employer] History LMP: 12/28/2005, Hysterectomy Age at Menarche: Age at First : Age at Menopause: [employer] History Comments: Sexual Activity: Yes; Male; hysterectomy Contraception: No contraception data on record PAST MEDICAL HISTORY Diagnosis Date - HGSIL on cytologic smear of cervix - Tobacco use disorder PAST SURGICAL HISTORY Procedure Laterality Date - PAST SURGICAL HISTORY OF herniated disc with discectomy - PAST SURGICAL HISTORY OF diagnostic laparoscopy - PAST SURGICAL HISTORY OF hysterectomy - PAST SURGICAL HISTORY OF 07/14/2013 bone spur removed from right shoulder - PAST SURGICAL HISTORY OF spinal fusion FAMILY HISTORY Problem Relation Age of Onset - Hypertension Mother - Heart Father MIx3 - Alzheimer's Disease Maternal Grandmother - Diabetes Maternal Grandfather - None Sister - None Sister - None Sister - None Sister SOCIAL HISTORY Social History Tobacco Use - Smoking status: Former Smoker Packs/day: 0.50 Years: 15.00 Pack years: 7.50 Types: Cigarettes - Smokeless tobacco: Never Used - Tobacco comment: Quit smoking 1 month ago Substance Use Topics - Alcohol use: No - Drug use: No REVIEW OF SYSTEMS Abdomen: No abdominal pain, nausea, vomiting, diarrhea, or constipation. No bloating, early satiety, indigestion, or increased flatulence. Bladder: Incontinence - tried pessary and medication with Dr Rendon with no improvement of symptoms. Leaks urine most of the time and is unaware of voiding most of the time - neurosurgeon is unsure if related to spinal problems. No dysuria, gross hematuria, urinary frequency, urinary urgency. Breast: No breast lumps, nipple d/c, overlying skin changes, redness or skin retraction. Allergies and current medication updated:Yes EXAM: Wt 262 lb 12.8 oz (119.2kg) LMP 12/28/2005 GENERAL: pleasant, female in no apparent distress HEENT: Normocephalic, atraumatic, mucus membranes moist and no lesions NECK: Supple, full range of motion, no adenopathy and thyroid normal DERMATOLOGY: Normal, without lesions, non-icteric and non-hirsute BREAST: soft, non-tender, symmetric, no dominant mass, normal nipple-areolar complex, no lymphadenopathy and no nipple discharge CHEST: Normal inspiratory effort ABDOMEN: soft, non-tender and no masses PELVIC: external genitalia normal, normal Bartholin's glands, urethra, [place]'s glands, no vulvar lesions, small amount white discharge present, normal appearing perineal body and perianal region, cervix surgically absent, cystocele 1st degree. Intertrigo to groin. BIMANUAL: no adnexal masses, non-tender and uterus surgically absent RECTOVAGINAL: deferred. NEURO: alert and oriented x3,exam grossly non-focal EXTREMITIES: normal ASSESSMENT/PLAN: 1) Health maintenance: Pap no longer needed. Mammogram ordered. Nutrition, exercise and routine health maintenance exams reviewed Calcium/Vitamin D supplementation information provided. 2. Vagina itching - ICD9: 698.1, ICD10: N89.8 - BACT/CLEMENT VAG GRAM STAIN - Fluconazole 3. Intertrigo - ICD9: 695.89, ICD10: L30.4 - FLUCONAZOLE 150 MG TABLET - Monistat 7 to skin - Discussed protecting skin due to incontinence and continuous incontinence produce use. 4. Urinary incontinence without sensory awareness - ICD9: 788.34, ICD10: N39.42 5. Cystocele, midline - ICD9: 618.01, ICD10: N81.11 - 1st degree - Pessary did not help incontinence 6) Contraception: hysterectomy. Contraceptive options reviewed and information provided. 7) STD screening: Declined STD check. 8) Follow up one year or sooner as needed Page De La Garza APRN.CNP [facility] 03-24-2022 Instructions Page De La Garza APRN.CNP - 03/24/2022 8:00 AM EDT Try to prevent skin to skin rubbing. Gold Waller friction defense Diflucan Monistat to skin yeast. documented in this encounter [facility] 03-24-2022 History of Present illness Narrative Bella is a 46 year old who presents for an annual gynecologic exam with complaints, vaginal burning and rash. Finished 2 months of antibiotics - at least 4 different antibiotics - 2 weeks ago following spinal fusion. Was doubling antibiotics. Also has burning but no discharge. Has had incontinence for many years and wears a pad 24/7 so she is not sure if cause is yeast or incontinence. Has lost 10 lbs since surgery with increased protein using shakes, cutting out carbs and pop - congratulated.. Menses: hysterectomy, ovaries remain for HMB Contraception: hysterectomy HPV vaccine: No Last Pap: 10/28/2016 normal vaginal vault HPV: 06/28/2014 negative History of abnormal pap: Yes, +HPV, colposcopy Last mammogram: 2020normal Abnormal mammogram: none Sexually active: No Hot flashes: Yes Night sweats: Yes OB History T0 L1 SAB0 IAB0 Ectopic0 Multiple0 Live Births0 [employer] History LMP: 12/28/2005, Hysterectomy Age at Menarche: Age at First : Age at Menopause: [employer] History Comments: Sexual Activity: Yes; Male; hysterectomy Contraception: No contraception data on record PAST MEDICAL HISTORY Diagnosis Date HGSIL on cytologic smear of cervix Tobacco use disorder PAST SURGICAL HISTORY Procedure Laterality Date PAST SURGICAL HISTORY OF herniated disc with discectomy PAST SURGICAL HISTORY OF diagnostic laparoscopy PAST SURGICAL HISTORY OF hysterectomy PAST SURGICAL HISTORY OF 07/14/2013 bone spur removed from right shoulder PAST SURGICAL HISTORY OF spinal fusion FAMILY HISTORY Problem Relation Age of Onset Hypertension Mother Heart Father MIx3 Alzheimer's Disease Maternal Grandmother Diabetes Maternal Grandfather None Sister None Sister None Sister None Sister SOCIAL HISTORY Social History Tobacco Use Smoking status: Former Smoker Packs/day: 0.50 Years: 15.00 Pack years: 7.50 Types: Cigarettes Smokeless tobacco: Never Used Tobacco comment: Quit smoking 1 month ago Substance Use Topics Alcohol use: No Drug use: No REVIEW OF SYSTEMS Abdomen: No abdominal pain, nausea, vomiting, diarrhea, or constipation. No bloating, early satiety, indigestion, or increased flatulence. Bladder: Incontinence - tried pessary and medication with Dr Rendon with no improvement of symptoms. Leaks urine most of the time and is unaware of voiding most of the time - neurosurgeon is unsure if related to spinal problems. No dysuria, gross hematuria, urinary frequency, urinary urgency. Breast: No breast lumps, nipple d/c, overlying skin changes, redness or skin retraction. Allergies and current medication updated:Yes EXAM: Wt 262 lb 12.8 oz (119.2kg) LMP 12/28/2005 GENERAL: pleasant, female in no apparent distress HEENT: Normocephalic, atraumatic, mucus membranes moist and no lesions NECK: Supple, full range of motion, no adenopathy and thyroid normal DERMATOLOGY: Normal, without lesions, non-icteric and non-hirsute BREAST: soft, non-tender, symmetric, no dominant mass, normal nipple-areolar complex, no lymphadenopathy and no nipple discharge CHEST: Normal inspiratory effort ABDOMEN: soft, non-tender and no masses PELVIC: external genitalia normal, normal Bartholin's glands, urethra, [place]'s glands, no vulvar lesions, small amount white discharge present, normal appearing perineal body and perianal region, cervix surgically absent, cystocele 1st degree. Intertrigo to groin. BIMANUAL: no adnexal masses, non-tender and uterus surgically absent RECTOVAGINAL: deferred. NEURO: alert and oriented x3,exam grossly non-focal EXTREMITIES: normal ASSESSMENT/PLAN: 1) Health maintenance: Pap no longer needed. Mammogram ordered. Nutrition, exercise and routine health maintenance exams reviewed Calcium/Vitamin D supplementation information provided. 2. Vagina itching - ICD9: 698.1, ICD10: N89.8 - BACT/CLEMENT VAG GRAM STAIN - Fluconazole 3. Intertrigo - ICD9: 695.89, ICD10: L30.4 - FLUCONAZOLE 150 MG TABLET - Monistat 7 to skin - Discussed protecting skin due to incontinence and continuous incontinence produce use. 4. Urinary incontinence without sensory awareness - ICD9: 788.34, ICD10: N39.42 5. Cystocele, midline - ICD9: 618.01, ICD10: N81.11 - 1st degree - Pessary did not help incontinence 6) Contraception: hysterectomy. Contraceptive options reviewed and information provided. 7) STD screening: Declined STD check. 8) Follow up one year or sooner as needed Page De La Garza APRN.ZUNILDA documented in this encounter [facility] 03-15-2022 History of Present illness Narrative Patient was identified by name and date. IASTM/STM and cupping okayed to add to POC per physical therapist consult (MB) and completed to reduce soft tissue restrictions at LB and L hip musculature. After manual she reported pain decreased from 10/10 to 7/10. MET completed to correct + L anterior pelvic rotation. Reviewed HEP and instructed in self massage techniques. Given sheet on TrA and held all pelvic floor exercises secondary to her upcoming bladder surgery this Wednesday. [facility] Work Phone: 02-16-2022 Note HNO ID: [id number] Author: Norma Gutiérrez RT(R) Service: Nuclear Medicine Author Type: Technologist Type: Progress Notes Filed: 02/16/2022 9:18 AM Note Text: Radiology Service Progress Note PATIENT NAME: Tammi Correa DATE OF SERVICE: February 16, 2022 TIME: 9:08 AM PATIENT IDENTITY VERIFICATION COMPLETED USING TWO (2) IDENTIFIERS: Name and Date of confirmed by patient verbally. FALL SCREENING: Has the patient had 2 falls in the last year or 1 fall with injury or currently using an Ambulatory Assistive Device (Walker, Cane, Wheelchair, Crutches, etc.)? No PATIENT GENDER DATA: Female. status: : No status: NO. PATIENT RELEVANT IMPLANT DATA REVIEWED: Not Applicable RADIOLOGY DEPARTMENT: General X-ray: Exam(s) Completed: Spine X-Ray(s): Lumbar AP / LAT / L5-S1 PERIPHERAL IV DATA: Not applicable SIGNED BY: RT Cristian(R) February 16, 2022 9:08 AM [facility] 02-16-2022 History of Present illness Narrative Radiology Service Progress Note PATIENT NAME: Tammi Correa DATE OF SERVICE: February 16, 2022 TIME: 9:08 AM PATIENT IDENTITY VERIFICATION COMPLETED USING TWO (2) IDENTIFIERS: Name and Date of confirmed by patient verbally. FALL SCREENING: Has the patient had 2 falls in the last year or 1 fall with injury or currently using an Ambulatory Assistive Device (Walker, Cane, Wheelchair, Crutches, etc.)? No PATIENT GENDER DATA: Female. status: : No status: NO. PATIENT RELEVANT IMPLANT DATA REVIEWED: Not Applicable RADIOLOGY DEPARTMENT: General X-ray: Exam(s) Completed: Spine X-Ray(s): Lumbar AP / LAT / L5-S1 PERIPHERAL IV DATA: Not applicable SIGNED BY: RT Cristian(R) February 16, 2022 9:08 AM documented in this encounter [facility] 01-09-2022 Note HNO ID: [id number] Author: MIKALA Morse) Service: ? Author Type: Technologist Type: Progress Notes Filed: 01/09/2022 9:04 AM Note Text: Radiology Service Progress Note PATIENT NAME: Tammi Correa DATE OF SERVICE: January 09, 2022 TIME: 8:56 AM PATIENT IDENTITY VERIFICATION COMPLETED USING TWO (2) IDENTIFIERS: Name and Date of confirmed by patient verbally. FALL SCREENING: Has the patient had 2 falls in the last year or 1 fall with injury or currently using an Ambulatory Assistive Device (Walker, Cane, Wheelchair, Crutches, etc.)? No PATIENT GENDER DATA: Female. status: : No status: NO. PATIENT RELEVANT IMPLANT DATA REVIEWED: Not Applicable RADIOLOGY DEPARTMENT: General X-ray: Exam(s) Completed: Spine X-Ray(s): Lumbar AP / LAT / L5-S1 PERIPHERAL IV DATA: Not applicable SIGNED BY: RT Mini(R) January 09, 2022 8:56 AM [facility] 01-09-2022 History of Present illness Narrative Radiology Service Progress Note PATIENT NAME: Tammi Correa DATE OF SERVICE: January 09, 2022 TIME: 8:56 AM PATIENT IDENTITY VERIFICATION COMPLETED USING TWO (2) IDENTIFIERS: Name and Date of confirmed by patient verbally. FALL SCREENING: Has the patient had 2 falls in the last year or 1 fall with injury or currently using an Ambulatory Assistive Device (Walker, Cane, Wheelchair, Crutches, etc.)? No PATIENT GENDER DATA: Female. status: : No status: NO. PATIENT RELEVANT IMPLANT DATA REVIEWED: Not Applicable RADIOLOGY DEPARTMENT: General X-ray: Exam(s) Completed: Spine X-Ray(s): Lumbar AP / LAT / L5-S1 PERIPHERAL IV DATA: Not applicable SIGNED BY: RT Mini(Pavan) January 09, 2022 8:56 AM documented in this encounter [facility] 11-05-2021 History of Present illness Narrative PAtient is here today for follow upLast I had seen patient was in November. She was having severe back pain with a hx of spinal surgery.Last time I had sen pt she was scheduled to see Dr Aviles. She had had multiople papts that were rescheduled. Finally got an appt and had surgrey in 12/2021. She had went for pre-admission testing and the PA told her to discuss caudal equina because of her numbness in her perianal area nad incontience. She had her back surgery, that day she had no pain in her leg. The next day she had worsening pain in her leg. She went back for her post-op visit, kept her incisions covered as instructed. In january her mother had noticed that she was red around her incisions and they were warm. She called and was put on antibiotics. Day 6 on the antiibotics she had reddness and it was draining, was put on a different antibiotic for 10 days. She did not get a call back, was going into a holiday weekened, went in to [facility]. They talked to the surgeon, changed her antibiotic. Saw him on February 03, and she had another surgery on 02/05/2022. She had a wash out and drainage and wound vac placed for 6 days. Wound was left open. Was started on another antiibtoic and told to pack it three times a day. Started on Lyrica. She was on cymbalta as well. She was told that she cannot go back to work for up to 18 months. FOr now is off work until 09/06/22.She has not been back to work since November of 2020 because of her foot surgery. She could not go back to work in between because she could not climb a later. She will be terminated by 04/17/22She then had a rash in vaginal area. She wondered if she was developing a rash from her incontience pads. She got an a ppt to see [employer] [facility] [place], told that she had clement. She was put on diflucan took one day and used monistat. She tested positive for BV and w as put on flagyl x 7 days. She reports that is almost nearly resolved.Her prison disability is making her apply for disability.She has called a counselor and is scheduled for an appt.She is very distraught with how things have turned out and that nothing has been simple and everything has snowballed and been complicated. [facility] Work Phone: 11-05-2021 History of Present illness Narrative Patient is here today for follow upLast I had seen patient was in November. She was having severe back pain with a hx of spinal surgery.Last time I had sen pt she was scheduled to see Dr Aviles. She had had multiple appt that were rescheduled. Finally got an appt and had surgery in 12/2021. She had went for pre-admission testing and the PA told her to discuss caudal equina because of her numbness in her perianal area and incontinence. She had her back surgery, that day she had no pain in her leg. The next day she had worsening pain in her leg. She went back for her post-op visit, kept her incisions covered as instructed. In january her mother had noticed that she was red around her incisions and they were warm. She called and was put on antibiotics. Day 6 on the antibiotics she had redness and it was draining, was put on a different antibiotic for 10 days. She did not get a call back, was going into a holiday weekend, went in to [facility]. They talked to the surgeon, changed her antibiotic. Saw him on February 03, and she had another surgery on 02/05/2022. She had a wash out and drainage and wound vac placed for 6 days. Wound was left open. Was started on another antibiotic and told to pack it three times a day. Started on Lyrica. She was on cymbal as well. She was told that she cannot go back to work for up to 18 months. FOr now is off work until 09/06/22.She has not been back to work since November of 2020 because of her foot surgery. She could not go back to work in between because she could not climb a later. She will be terminated by 04/17/22She then had a rash in vaginal area. She wondered if she was developing a rash from her incontinence pads. She got an a ppt to see [employer] [employer] [facility] [place], told that she had clement. She was put on Diflucan took one day and used Monistat. She tested positive for BV and w as put on flagyl x 7 days. She reports that is almost nearly resolved.Her prison disability is making her apply for disability.She has called a counselor and is scheduled for an appt.She is very distraught with how things have turned out and that nothing has been simple and everything has snowballed and been complicated. [facility] Work Phone: 10-23-2021 Note HNO ID: [id number] Author: RT Mini(R) Service: ? Author Type: Technologist Type: Progress Notes Filed: 10/23/2021 8:56 AM Note Text: Radiology Service Progress Note PATIENT NAME: Tammi Correa DATE OF SERVICE: October 23, 2021 TIME: 8:46 AM PATIENT IDENTITY VERIFICATION COMPLETED USING TWO (2) IDENTIFIERS: Name and Date of confirmed by patient verbally. FALL SCREENING: Has the patient had 2 falls in the last year or 1 fall with injury or currently using an Ambulatory Assistive Device (Walker, Cane, Wheelchair, Crutches, etc.)? No PATIENT GENDER DATA: Female. status: : No status: NO. PATIENT RELEVANT IMPLANT DATA REVIEWED: Not Applicable RADIOLOGY DEPARTMENT: General X-ray: Exam(s) Completed: Spine X-Ray(s): Lumbar AP / LAT / L5-S1 PERIPHERAL IV DATA: Not applicable SIGNED BY: RT Mini(R) October 23, 2021 8:46 AM [facility] 07-28-2021 Note HNO ID: [id number] Author: RT Nata(Pavan) Service: ? Author Type: Technologist Type: Progress Notes Filed: 07/28/2021 9:24 AM Note Text: Radiology Service Progress Note PATIENT NAME: Tammi Correa DATE OF SERVICE: July 28, 2021 TIME: 9:24 AM PATIENT IDENTITY VERIFICATION COMPLETED USING TWO (2) IDENTIFIERS: Name and Date of confirmed by patient verbally. FALL SCREENING: Has the patient had 2 falls in the last year or 1 fall with injury or currently using an Ambulatory Assistive Device (Walker, Cane, Wheelchair, Crutches, etc.)? No PATIENT GENDER DATA: Female. status: : No status: NO. PATIENT RELEVANT IMPLANT DATA REVIEWED: Yes RADIOLOGY DEPARTMENT: MR; Exam(s) Completed: Spine: Lumbar spine PERIPHERAL IV DATA: Not applicable SIGNED BY: RT Nata(R) July 28, 2021 9:24 AM [facility] 07-26-2021 History of Present illness Narrative Patient is here today for 6 week follow upPt was seen by Romain on 07/26 for URI and treated with Augmentin, prednisone and Bromphed.Pt reports that for the most part that has improved but she has had some sinus pressure now.Pt was able to get her lumbar mri done at [facility].She does have a follow up appt with her neurosurgeon until 09/04/21.Patient is done with therapy.Some days are worse than others, for the most part her pain is the same.She has not had injections. They could not give her one because they were unable to get an MRI approved. [facility] Work Phone: 07-14-2021 History of Present illness Narrative [facility] OUTPATIENT REHABILITATION DAILY TREATMENT NOTE Today's Date 07/14/2021 Patient Name: Tammi Correa Date of : 1975 Current Visit #: 9 Authorized Visits: 16 Case Name: Back Pain History: Pre-Treatment Pain Scale: 10 Symptoms: gradually worsened Functional Diagnosis: 1. Acute right-sided low back pain with sciatica, sciatica laterality unspecified Clinical Information: Subjective: She now has numbness from LB to the back of her knee. She almost fell over the weekend d/t numbness and weakness in her leg. She is waiting to hear back from her PCP about an MRI scheduled. Objective No sx decrease with STM or MH. Pain increase with transfers. Treatments: Physical Therapy Exercise Log - 07/14/2148 OTHER Notes visit 8: 8:30 - 9:05 Therapeutic Exercise (26815) Intervention seated marches x10 Pain increase Parameters seated rockerboards x20 Manual Therapy (79112) Intervention STM to low back - x10 min, standing Modalities Modalities Hot packs Parameters x10 min, 155 degrees, sitting PT Treatment Times Therex Total Time 15 Modalities Total Time 10 Direct Treatment Time 25 Total Treatment Time 25 Goals: Physical Therapy Ortho Goals: MOBILITY: Patient will be able to ambulate for 30 minutes in community without difficulty in 4 weeks. CARRYING/MOVING/HANDLING: Patient will be able to lift and carry common household objects without difficulty in 4 weeks CHANGING MAINTAINING POSITON: Patient will be able to sit for 1 hour without onset of LE numbness in 4 weeks CHANGING MAINTAINING POSITON: Patient will be able to change position in bed without pain or difficulty in 3 weeks SELF CARE: Patient will be able to complete ADL's including bathing, dressing, and hair care without difficulty in 3 weeks. IMPAIRMENT: Patient will demonstrate improved postural awareness in PT sessions to facilitate mechanical alignment and function in 3 weeks. IMPAIRMENT: Improve pain from 10/10 to <5/10 during prolonged positioning and walking in 4 weeks IMPAIRMENT: Improve MMT of Bilateral Hip Flexion from 4/5 to 4+/5 in 4 weeks IMPAIRMENT: Improve AROM of the Lumbar spine to less than 50% movement loss in 4 weeks. OTHER: Patient will increase FOTO score from 44 to at least 60 to show MDC/MCII and expected functional outcome in 4 weeks. OTHER: Patient will be able to properly demonstrate independence with HEP in 1 week. Patient Education: Quality of movement with patient demonstrated understanding. Post-Treatment Pain Scale: 10 Assessment: Patient had an expected response to treatment. Skilled Intervention demonstrated by modifications of treatment per exercise log including increased load and safety interventions per exercise log. Progress towards goals as expected. Plan for Next Visit: Treatment Visit with focus on pain control Kimberly Sherwood PTA STATE LICENSE, [id number] documented in this encounter [facility] 07-11-2021 History of Present illness Narrative [facility] OUTPATIENT REHABILITATION DAILY TREATMENT NOTE Today's Date 07/11/2021 Patient Name: Tammi Correa Date of : 1975 Current Visit #: 8 Authorized Visits: 16 Case Name: Back Pain History: Pre-Treatment Pain Scale: 9 Symptoms: gradually worsened Functional Diagnosis: 1. Acute right-sided low back pain with sciatica, sciatica laterality unspecified Clinical Information: Subjective: she hasn't seen any improvements with therapy. Objective Pain with stretches and ambulation Treatments: Physical Therapy Exercise Log - 07/11/21 0914 OTHER Notes visit 7: 8:30 - 9:05 Therapeutic Exercise (88398) Intervention seated marches x10 Parameters seated rockerboards x20 Manual Therapy (95848) Intervention STM to low back - x10 min, standing Modalities Modalities Hot packs Parameters x10 min, 155 degrees, sitting PT Treatment Times Therex Total Time 25 Modalities Total Time 10 Direct Treatment Time 35 Total Treatment Time 35 Goals: Physical Therapy Ortho Goals: MOBILITY: Patient will be able to ambulate for 30 minutes in community without difficulty in 4 weeks. CARRYING/MOVING/HANDLING: Patient will be able to lift and carry common household objects without difficulty in 4 weeks CHANGING MAINTAINING POSITON: Patient will be able to sit for 1 hour without onset of LE numbness in 4 weeks CHANGING MAINTAINING POSITON: Patient will be able to change position in bed without pain or difficulty in 3 weeks SELF CARE: Patient will be able to complete ADL's including bathing, dressing, and hair care without difficulty in 3 weeks. IMPAIRMENT: Patient will demonstrate improved postural awareness in PT sessions to facilitate mechanical alignment and function in 3 weeks. IMPAIRMENT: Improve pain from 10/10 to <5/10 during prolonged positioning and walking in 4 weeks IMPAIRMENT: Improve MMT of Bilateral Hip Flexion from 4/5 to 4+/5 in 4 weeks IMPAIRMENT: Improve AROM of the Lumbar spine to less than 50% movement loss in 4 weeks. OTHER: Patient will increase FOTO score from 44 to at least 60 to show MDC/MCII and expected functional outcome in 4 weeks. OTHER: Patient will be able to properly demonstrate independence with HEP in 1 week. Patient Education: Quality of movement with patient demonstrated understanding. Post-Treatment Pain Scale: 9 Assessment: Patient had an expected response to treatment. Skilled Intervention demonstrated by modifications of treatment per exercise log including increased load and safety interventions per exercise log. Progress towards goals as expected. Plan for Next Visit: Treatment Visit with focus on pain control Kimberly Sherwood PTA STATE LICENSE, [id number] documented in this encounter [facility] 07-07-2021 History of Present illness Narrative [facility] OUTPATIENT REHABILITATION DAILY TREATMENT NOTE Today's Date 07/07/2021 Patient Name: Tammi Correa Date of : 1975 Current Visit #: 7 Authorized Visits: 16 Case Name: Back Pain History: Pre-Treatment Pain Scale: 10 Symptoms: gradually worsened Functional Diagnosis: 1. Acute bilateral low back pain with sciatica, sciatica laterality unspecified Clinical Information: Subjective: Her back is not getting better. Pain is 10/10 at rest or walking. Cannot rest at night d/t pain. Unable to complete ADL's d/t pain. Pt stated cant find position to get comfortable and cant sit for any period or stand for any period of time without pain. Objective Pt did not tolerate sitting with HP and had numbness in L leg while standing for STM. No changes in pain today and did not tolerate standing for STM. Treatments: Physical Therapy Exercise Log - 07/07/21 0835 OTHER Notes visit 6: 8:35 - 9:05 Manual Therapy ([id number]) Intervention STM to low back - x10 min, standing Modalities Modalities Hot packs Parameters x10 min, 155 degrees, sitting PT Treatment Times Manual Therapy Total Time 15 Modalities Total Time 10 Direct Treatment Time 25 Total Treatment Time 25 Goals: Physical Therapy Ortho Goals: MOBILITY: Patient will be able to ambulate for 30 minutes in community without difficulty in 4 weeks. CARRYING/MOVING/HANDLING: Patient will be able to lift and carry common household objects without difficulty in 4 weeks CHANGING MAINTAINING POSITON: Patient will be able to sit for 1 hour without onset of LE numbness in 4 weeks CHANGING MAINTAINING POSITON: Patient will be able to change position in bed without pain or difficulty in 3 weeks SELF CARE: Patient will be able to complete ADL's including bathing, dressing, and hair care without difficulty in 3 weeks. IMPAIRMENT: Patient will demonstrate improved postural awareness in PT sessions to facilitate mechanical alignment and function in 3 weeks. IMPAIRMENT: Improve pain from 10/10 to <5/10 during prolonged positioning and walking in 4 weeks IMPAIRMENT: Improve MMT of Bilateral Hip Flexion from 4/5 to 4+/5 in 4 weeks IMPAIRMENT: Improve AROM of the Lumbar spine to less than 50% movement loss in 4 weeks. OTHER: Patient will increase FOTO score from 44 to at least 60 to show MDC/MCII and expected functional outcome in 4 weeks. OTHER: Patient will be able to properly demonstrate independence with HEP in 1 week. Patient Education: Quality of movement with patient demonstrated understanding. Post-Treatment Pain Scale: 10 Assessment: Patient had an expected response to treatment. Skilled Intervention demonstrated by modifications of treatment per exercise log including assessment of patient's response and safety interventions per exercise log. Progress towards goals unexpected due to increased pain and numbness down L leg. Plan for Next Visit: Treatment Visit with focus on Pain management Enrique Shah PTA STATE LICENSE, [id number] documented in this encounter [facility] 07-02-2021 History of Present illness Narrative [facility] OUTPATIENT REHABILITATION DAILY TREATMENT NOTE Today's Date 07/02/2021 Patient Name: Tammi Correa Date of : 1975 Current Visit #: 6 Authorized Visits: 16 Case Name: Back Pain History: Pre-Treatment Pain Scale: 10 Symptoms: gradually worsened Functional Diagnosis: 1. Acute right-sided low back pain with sciatica, sciatica laterality unspecified Clinical Information: Subjective: Her back is not getting better. Pain is 10/10 at rest or walking. Cannot rest at night d/t pain. Unable to complete ADL's d/t pain. Objective Pain increase with ambulation, mild decrease in sx's following MH. Unable to complete PRE's d/t pain . Treatments: Physical Therapy Exercise Log - 07/02/21 1059 OTHER Notes visit 5: 8:33-9:10 Manual Therapy (10634) Intervention STM to low back - x10 min, standing Modalities Modalities Hot packs Parameters x10 min, 155 degrees, sitting PT Treatment Times Therex Total Time 15 Modalities Total Time 15 Direct Treatment Time 30 Total Treatment Time 30 Goals: Physical Therapy Ortho Goals: MOBILITY: Patient will be able to ambulate for 30 minutes in community without difficulty in 4 weeks. CARRYING/MOVING/HANDLING: Patient will be able to lift and carry common household objects without difficulty in 4 weeks CHANGING MAINTAINING POSITON: Patient will be able to sit for 1 hour without onset of LE numbness in 4 weeks CHANGING MAINTAINING POSITON: Patient will be able to change position in bed without pain or difficulty in 3 weeks SELF CARE: Patient will be able to complete ADL's including bathing, dressing, and hair care without difficulty in 3 weeks. IMPAIRMENT: Patient will demonstrate improved postural awareness in PT sessions to facilitate mechanical alignment and function in 3 weeks. IMPAIRMENT: Improve pain from 10/10 to <5/10 during prolonged positioning and walking in 4 weeks IMPAIRMENT: Improve MMT of Bilateral Hip Flexion from 4/5 to 4+/5 in 4 weeks IMPAIRMENT: Improve AROM of the Lumbar spine to less than 50% movement loss in 4 weeks. OTHER: Patient will increase FOTO score from 44 to at least 60 to show MDC/MCII and expected functional outcome in 4 weeks. OTHER: Patient will be able to properly demonstrate independence with HEP in 1 week. Patient Education: Quality of movement with patient demonstrated understanding. Post-Treatment Pain Scale: 10 Assessment: Patient had an expected response to treatment. Skilled Intervention demonstrated by modifications of treatment per exercise log including increased load and safety interventions per exercise log. Progress towards goals as expected. Plan for Next Visit: Treatment Visit with focus on pain Kimberly Sherwood PTA STATE LICENSE, [id number] documented in this encounter [facility] 06-09-2021 History of Present illness Narrative [facility] OUTPATIENT REHABILITATION DAILY TREATMENT NOTE Today's Date 06/09/2021 Patient Name: Tammi Correa Date of : 1975 Current Visit #: 32 Authorized Visits: 35 Case Name: Back Pain History: Pre-Treatment Pain Scale: 10 Symptoms: stabilized Functional Diagnosis: 1. Acute bilateral low back pain with sciatica, sciatica laterality unspecified Clinical Information: Subjective: Pt reports no relief and cant find a position to get relief. Pt very miserable and cant walk very well d/t pain in back. Pt has some radicular symptoms down L LE, mainly and occasional symptoms down R Objective Treatments: Physical Therapy Exercise Log - 06/09/21 1055 OTHER Precautions/Contraindications Ankle - Therex is the only code approved by insurance Notes visit 3: for LBP 10:55 - 11:20 Therapeutic Exercise (90356) Intervention SCIFIT 5' L3 NT Parameters standing calf (gastroc and soleus) stretch 3x20 NT Intervention BOSU Step ups - x10 fwd, lat Heel taps 4'' 2x10 NT Parameters standing rocker board fwd, lat x20 NT Intervention BOSU lunges - x20 alt NT Parameters BAPS standing fwd,retro/side to side L3 x20, cw/ccw x10 NT Intervention Lat ambulation, Retro - 15' x4 NT Parameters Excursion on airex - x10 R stance in // bars NT Intervention shuttle squats SL 62#, SL on wobble board 37# x20 NT Parameters Steps - 1 handrail reciprocal up step to down 6 x3 - NT Intervention 3 way heel raises - x10 NT Parameters step up and over - 4 step - x10 - NT Intervention heel walking - right // bars x3 NT Parameters seated marching x5 Intervention seated HS stretches x5 Manual Therapy (38413) Intervention STM to low back - x10 min, standing Additional Exercises Add more exercises? Yes Modalities Modalities Hot packs Parameters x10 min, 155 degrees, sitting PT Treatment Times Manual Therapy Total Time 10 Modalities Total Time 10 Direct Treatment Time 20 Total Treatment Time 20 Goals: Physical Therapy Ortho Goals: MOBILITY: Patient will be able to ambulate for 30 minutes in community without difficulty in 4 weeks. CARRYING/MOVING/HANDLING: Patient will be able to lift and carry common household objects without difficulty in 4 weeks CHANGING MAINTAINING POSITON: Patient will be able to sit for 1 hour without onset of LE numbness in 4 weeks CHANGING MAINTAINING POSITON: Patient will be able to change position in bed without pain or difficulty in 3 weeks SELF CARE: Patient will be able to complete ADL's including bathing, dressing, and hair care without difficulty in 3 weeks. IMPAIRMENT: Patient will demonstrate improved postural awareness in PT sessions to facilitate mechanical alignment and function in 3 weeks. IMPAIRMENT: Improve pain from 10/10 to <5/10 during prolonged positioning and walking in 4 weeks IMPAIRMENT: Improve MMT of Bilateral Hip Flexion from 4/5 to 4+/5 in 4 weeks IMPAIRMENT: Improve AROM of the Lumbar spine to less than 50% movement loss in 4 weeks. OTHER: Patient will increase FOTO score from 44 to at least 60 to show MDC/MCII and expected functional outcome in 4 weeks. OTHER: Patient will be able to properly demonstrate independence with HEP in 1 week. Patient Education: Quality of movement with patient demonstrated understanding. Post-Treatment Pain Scale: 10 Assessment: Patient had an expected response to treatment. Skilled Intervention demonstrated by modifications of treatment per exercise log including increased load and safety interventions per exercise log. Progress towards goals as expected. Plan for Next Visit: Treatment Visit with focus on pain management as tolerated Enrique Shah PTA STATE LICENSE, [id number] documented in this encounter [facility] 06-05-2021 History of Present illness Narrative [facility] OUTPATIENT REHABILITATION DAILY TREATMENT NOTE Today's Date 06/05/2021 Patient Name: Tammi Correa Date of : 1975 Current Visit #: 31 Authorized Visits: 35 Case Name: Back Pain History: Pre-Treatment Pain Scale: 9 Symptoms: gradually worsened Functional Diagnosis: 1. Acute right-sided low back pain with sciatica, sciatica laterality unspecified Clinical Information: Subjective: Pt continues to be uncomfortable, cant sleep and cant find a position to get comfortable, Standing, sitting and laying down is painful with radicular symptoms of pain and numbness down L LE and stated started to feel some down R this morning into back of leg. Objective Attempted hot pack in seated pt could only tolerated sitting 10 min before back pain and discomfort got to much, Attemepted STM in standing and pt had spasms in back and buttocks. Treatments: Physical Therapy Exercise Log - 06/05/21 1045 OTHER Precautions/Contraindications Ankle - Therex is the only code approved by insurance Notes visit 2: for LBP 10:45 - 11:10 Therapeutic Exercise (07630) Intervention SCIFIT 5' L3 NT Parameters standing calf (gastroc and soleus) stretch 3x20 NT Intervention BOSU Step ups - x10 fwd, lat Heel taps 4'' 2x10 NT Parameters standing rocker board fwd, lat x20 NT Intervention BOSU lunges - x20 alt NT Parameters BAPS standing fwd,retro/side to side L3 x20, cw/ccw x10 NT Intervention Lat ambulation, Retro - 15' x4 NT Parameters Excursion on airex - x10 R stance in // bars NT Intervention shuttle squats SL 62#, SL on wobble board 37# x20 NT Parameters Steps - 1 handrail reciprocal up step to down 6 x3 - NT Intervention 3 way heel raises - x10 NT Parameters step up and over - 4 step - x10 - NT Intervention heel walking - right // bars x3 NT Parameters seated marching x5 Intervention seated HS stretches x5 Manual Therapy (84242) Intervention STM to low back - x10 min, standing Additional Exercises Add more exercises? Yes Modalities Modalities Hot packs Parameters x10 min, 155 degrees, sitting PT Treatment Times Therex Total Time 10 Modalities Total Time 10 Direct Treatment Time 20 Total Treatment Time 20 Goals: Physical Therapy Ortho Goals: MOBILITY: Patient will be able to ambulate for 30 minutes in community without difficulty in 4 weeks. CARRYING/MOVING/HANDLING: Patient will be able to lift and carry common household objects without difficulty in 4 weeks CHANGING MAINTAINING POSITON: Patient will be able to sit for 1 hour without onset of LE numbness in 4 weeks CHANGING MAINTAINING POSITON: Patient will be able to change position in bed without pain or difficulty in 3 weeks SELF CARE: Patient will be able to complete ADL's including bathing, dressing, and hair care without difficulty in 3 weeks. IMPAIRMENT: Patient will demonstrate improved postural awareness in PT sessions to facilitate mechanical alignment and function in 3 weeks. IMPAIRMENT: Improve pain from 10/10 to <5/10 during prolonged positioning and walking in 4 weeks IMPAIRMENT: Improve MMT of Bilateral Hip Flexion from 4/5 to 4+/5 in 4 weeks IMPAIRMENT: Improve AROM of the Lumbar spine to less than 50% movement loss in 4 weeks. OTHER: Patient will increase FOTO score from 44 to at least 60 to show MDC/MCII and expected functional outcome in 4 weeks. OTHER: Patient will be able to properly demonstrate independence with HEP in 1 week. Patient Education: Quality of movement with patient demonstrated understanding. Post-Treatment Pain Scale: 9 Assessment: Patient had an expected response to treatment. Skilled Intervention demonstrated by modifications of treatment per exercise log including increased load and safety interventions per exercise log. Progress towards goals as expected. Plan for Next Visit: Treatment Visit with focus on flexability and stretching as tolerated. Enrique Shah PTA STATE LICENSE, [id number] documented in this encounter [facility] 06-04-2021 History of Present illness Narrative [facility] OUTPATIENT REHABILITATION DAILY TREATMENT NOTE Today's Date 06/04/2021 Patient Name: Tammi Correa Date of : 1975 Current Visit #: 30 Authorized Visits: 35 Case Name: Back Pain History: Pre-Treatment Pain Scale: 10 Symptoms: gradually worsened Functional Diagnosis: 1. Acute right-sided low back pain with sciatica, sciatica laterality unspecified Clinical Information: Subjective: she has started the stretches but her pain is getting worse and going down her L leg further. She can't sleep at night d/t pain. Sitting for more than 15 min makes her pain worse. Pain meds don't touch the pain. Dr. Rudolph put her foot therapy on HOLD until she gets her back pain under control. Objective Unable to do stretches d/t radicular pain. Checked leg length with pain increase with transfers. Ambulates with slow guarded gait. Treatments: Physical Therapy Exercise Log - 06/04/21 0914 OTHER Precautions/Contraindications Ankle - Therex is the only code approved by insurance Notes visit 1: for LBP 8:30-9:05 Therapeutic Exercise (09774) Intervention SCIFIT 5' L3 NT Parameters standing calf (gastroc and soleus) stretch 3x20 NT Intervention BOSU Step ups - x10 fwd, lat Heel taps 4'' 2x10 NT Parameters standing rocker board fwd, lat x20 NT Intervention BOSU lunges - x20 alt NT Parameters BAPS standing fwd,retro/side to side L3 x20, cw/ccw x10 NT Intervention Lat ambulation, Retro - 15' x4 NT Parameters Excursion on airex - x10 R stance in // bars NT Intervention shuttle squats SL 62#, SL on wobble board 37# x20 NT Parameters Steps - 1 handrail reciprocal up step to down 6 x3 - NT Intervention 3 way heel raises - x10 NT Parameters step up and over - 4 step - x10 - NT Intervention heel walking - right // bars x3 NT Parameters seated marching x5 Intervention seated HS stretches x5 PT Treatment Times Therex Total Time 30 Direct Treatment Time 30 Total Treatment Time 30 Goals: Physical Therapy Ortho Goals: MOBILITY: Patient will be able to ambulate for 30 minutes in community without difficulty in 4 weeks. CARRYING/MOVING/HANDLING: Patient will be able to lift and carry common household objects without difficulty in 4 weeks CHANGING MAINTAINING POSITON: Patient will be able to sit for 1 hour without onset of LE numbness in 4 weeks CHANGING MAINTAINING POSITON: Patient will be able to change position in bed without pain or difficulty in 3 weeks SELF CARE: Patient will be able to complete ADL's including bathing, dressing, and hair care without difficulty in 3 weeks. IMPAIRMENT: Patient will demonstrate improved postural awareness in PT sessions to facilitate mechanical alignment and function in 3 weeks. IMPAIRMENT: Improve pain from 10/10 to <5/10 during prolonged positioning and walking in 4 weeks IMPAIRMENT: Improve MMT of Bilateral Hip Flexion from 4/5 to 4+/5 in 4 weeks IMPAIRMENT: Improve AROM of the Lumbar spine to less than 50% movement loss in 4 weeks. OTHER: Patient will increase FOTO score from 44 to at least 60 to show MDC/MCII and expected functional outcome in 4 weeks. OTHER: Patient will be able to properly demonstrate independence with HEP in 1 week. Patient Education: Quality of movement with patient demonstrated understanding. Post-Treatment Pain Scale: 10 Assessment: Patient had an expected response to treatment. Skilled Intervention demonstrated by modifications of treatment per exercise log including increased intensity and safety interventions per exercise log. Progress towards goals as expected. Plan for Next Visit: Treatment Visit with focus on pain control Kimberly Sherwood PTA STATE LICENSE, [id number] documented in this encounter [facility] 05-29-2021 History of Present illness Narrative [facility] OUTPATIENT REHABILITATION DAILY TREATMENT NOTE Today's Date 05/29/2021 Patient Name: Tammi Correa Date of : 1975 Current Visit #: 29 Authorized Visits: 35 Case Name: Right Ankle Pain History: Pre-Treatment Pain Scale: 1 Symptoms: gradually improved Functional Diagnosis: 1. Achilles tendon injury, right, initial encounter Clinical Information: Subjective: Pt denies change in med hx and reports no new complaints. Pain remains low and she has been compliant with her HEP. Objective Treatments: Physical Therapy Exercise Log - 05/29/21 1002 OTHER Precautions/Contraindications Ankle - Therex is the only code approved by insurance Notes visit 28: 10:02 - 10:46 Therapeutic Exercise (83662) Intervention SCIFIT 5' L3 Parameters standing calf (gastroc and soleus) stretch 3x20 Intervention BOSU Step ups - x10 fwd, lat Heel taps 4'' 2x10 Parameters standing rocker board fwd, lat x20 Intervention BOSU lunges - x20 alt Parameters BAPS standing fwd,retro/side to side L3 x20, cw/ccw x10 Intervention Lat ambulation, Retro - 15' x4 Parameters Excursion on airex - x10 R stance in // bars Intervention shuttle squats SL 62#, SL on wobble board 37# x20 Parameters Steps - 1 handrail reciprocal up step to down 6 x3 - NT Intervention 3 way heel raises - x10 Parameters step up and over - 4 step - x10 - NT Intervention heel walking - right // bars x3 PT Treatment Times Therex Total Time 44 Direct Treatment Time 44 Total Treatment Time 44 Goals: Physical Therapy Ortho Goals: MOBILITY: Patient will be able to ambulate for 1 hour in community without difficulty in 8 weeks. MOBILITY: Patient will be able to ambulate on uneven surfaces without difficulty in 10 weeks. MOBILITY: Patient will be able to ascend/descend stairs without difficulty in 8 weeks. IMPAIRMENT: Patient will report pain <3/10 during prolonged standing, walking and stair negotiation in 10 weeks IMPAIRMENT: Improve gross MMT of the Right Ankle to 4+/5 in 10 weeks IMPAIRMENT: Improve AROM of Right Ankle DF and Eversion to at least 8 degrees in 8 weeks. IMPAIRMENT: Improve AROM of Right Ankle Inversion to at least 25 degrees in 8 weeks. OTHER: Patient will increase FOTO score from 16 to at least 55 to show MDC/MCII and expected functional outcome in 10 weeks. OTHER: Patient will be able to properly demonstrate independence with HEP in 1 week. Patient Education: Quality of movement and Verbal HEP with patient verbalized understanding. Post-Treatment Pain Scale: 1 Assessment: Patient had an expected response to treatment. Skilled Intervention demonstrated by modifications of treatment per exercise log including increased intensity and increased mobility and safety interventions per exercise log. Progress towards goals as expected. Plan for Next Visit: Treatment Visit with focus on strength and stability progressions as tolerated Lisandro Trujillo PT State License, [id number] documented in this encounter [facility] 05-29-2021 History of Present illness Narrative [facility] OUTPATIENT REHABILITATION Evaluation Today's Date 05/29/2021 Patient Name: Tammi Correa Date of : 1975 Case Name: Back Pain Functional Diagnosis: 1. Back pain, unspecified back location, unspecified back pain laterality, unspecified chronicity Clinical Information: Subjective Referring Diagnosis: Back Pain History of Present Illness Contemporary Medical History: X-Ray 12/02: This includes flexion/extension lateral radiographs. A 4-5 mm anterolisthesis is seen of L4 and L5 although no instability in flexion or extension. There is also slight anterolisthesis of 2-3 mm of L5 on S1 but no instability in flexion or extension. No vertebral body fracture. Sacrum and SI joints are normal. A subtle levocurvature is seen in the thoracolumbar spine. Subjective History: Pt reports c/o chronic low back pain. She reports h/o bilateral LE numbness when she was sleeping and intermittent severe LE heaviness/weakness. She has seen a Chiropractor which was unable to help with her pain/symptoms. She received imaging revealing a bulging disc causing nerve impingement. She underwent back surgery (likely discectomy) in 2004. She reports sx improving following her foot surgery because she was less active but sx have significantly worsened since she has been walking and doing more. She reports difficulty and increased pain with prolonged sitting as well onset of numbness in both LEs (left>right). She has been prescribed pain meds and a muscle relaxer which have not helped much. Previous Imaging: X-ray Pain Scale: Pain location: lumbar spine Average Pain: 5/10 Pain at highest: 10/10 Aggravating factors: prolonged positioning, chores and counter/table top activities, bending 24 Hour Symptom Behavior Morning Pain: sudden Afternoon Pain: better End of day pain: worse Personal Goals: Decrease pain and return to prior activity Functional Mobility Status Functional Limitations: limited mobility, standing and sitting Current Mobility Status: Home: no device Community: no device Current Activity Level: low active Social Support: Scientology, social, or cultural considerations to be made aware of before starting treatment: No Home Environment: Current Home Environment: Setup: single story house Current Entry: 3 WAYLON. Activities of daily living: increased time and effort with bathing an lower body dressing.Instrumental Activities of Daily Living: to be assessed Sleep Assessment Average sleep duration (hrs): 3 (off/on) Preferred sleep position: on side (right side w/ pillow between knees) Sleep disturbance: Sleep Disturbance Red Flags: None Comments: Barriers to Care: None Scientology, social, or cultural considerations to be made aware of before starting treatment: No Lumbar Spine Posture: Posture - Back: pt presents with right lateral lean in sitting. Asymmetrics: Leg length: left longer about 1.5cm - possible anterior innominate rotation Trunk AROM: Baseline pain level and symptom location: 6/10 lumbosacral region and left side QL region Movement Loss % of Loss Description Flexion 75% increased pain returning to extension Extension 75% significant increase in pain Side Gliding R 50% increases pain Side Gliding L 50% increases pain Dermatomes Sensation: grossly intact Muscle Strength: Hip Flexion Right: 4 Left: 4 Knee extension Right: 4+ Left: 4+ Ankle DF Left: 5 Ankle PF Left: 4+ Knee flexion Right: 5 Left: 5 Hip extension Right: 4+ Left: 4+ Hip ABD Right: 4+ Left: 4+ Special Tests Slump Right: no Slump R Left: Slump L SLR Right: no SLR R Left: SLR L SIJ dysfunction: SIJ Dysfunction Pain with left side pelvic rocking FOTO Score: 44 Treatments: Physical Therapy Exercise Log - 05/29/21 1001 OTHER Precautions/Contraindications Back Notes Eval: 9:24 - 10:02 Therapeutic Exercise (47676) Intervention provided written HEP handouts consisting of the following: Parameters seated left QL stretch Intervention LAQs Parameters SKTC w/ opposite knee bent Intervention PPTs PT Treatment Times Total Treatment Time 38 Goals: Physical Therapy Ortho Goals: MOBILITY: Patient will be able to ambulate for 30 minutes in community without difficulty in 4 weeks. CARRYING/MOVING/HANDLING: Patient will be able to lift and carry common household objects without difficulty in 4 weeks CHANGING MAINTAINING POSITON: Patient will be able to sit for 1 hour without onset of LE numbness in 4 weeks CHANGING MAINTAINING POSITON: Patient will be able to change position in bed without pain or difficulty in 3 weeks SELF CARE: Patient will be able to complete ADL's including bathing, dressing, and hair care without difficulty in 3 weeks. IMPAIRMENT: Patient will demonstrate improved postural awareness in PT sessions to facilitate mechanical alignment and function in 3 weeks. IMPAIRMENT: Improve pain from 10/10 to <5/10 during prolonged positioning and walking in 4 weeks IMPAIRMENT: Improve MMT of Bilateral Hip Flexion from 4/5 to 4+/5 in 4 weeks IMPAIRMENT: Improve AROM of the Lumbar spine to less than 50% movement loss in 4 weeks. OTHER: Patient will increase FOTO score from 44 to at least 60 to show MDC/MCII and expected functional outcome in 4 weeks. OTHER: Patient will be able to properly demonstrate independence with HEP in 1 week. CPT Code 89887 Low 30580 Moderate 05262 High History 0 1-2 3+ Comorbidities: prior surgical history, Personal factors: chronicity or severity of the current condition Examination of body systems (elements of body structures & functions, activity limitations, and/or participation restrictions) 1-2 elements 3+ elements 4+ elements See below clinical impression Clinical Presentation Stable Evolving Unstable As evidenced by reproduction of or changes in symptoms with certain movements and pt report of overall worsening of symtpoms over time Decision Making Low (FOTO >/= 69) Moderate (FOTO 34 - 68) High (FOTO </= 33) FOTO score= 44 Pt is a 45 y.o. female who presents to PT services with c/o low back pain with bilat. LE radiculopathy. Upon assessment, pt has been found with the following impairments: impaired posture, decreased ROM, decreased strength, antalgic gait, numbness and tingling and pain. The documented impairments result in the following functional limitations: time recorder, regular PA/exercise, functional mobility, recreational activities, quality of life, bending and lifting for work/ADLs. The pt would benefit from skilled PT services focused on the above listed impairments and limitations in order to safely progress pt to their desired level of function. Pt to be discharged from OP PT services if/when goals are met, if they fail to make progress with conservative management in PT, if their level of progress plateaus, or if they do not maintain compliance with attendance or HEP. At this time, it is my clinical judgment that services are medically necessary. Plan of Care Frequency of Visits: 2 times per week Duration: 4 weeks Interventions: Therapeutic Exercise, Neuromuscular Re-Education, Manual Therapy, Therapeutic/ Functional Activities and Hot/Cold Pack Rehab Potential: fair Suicide Screen Signs and Symptoms of Abuse/Neglect: No Actions Taken: No Suicide Risk: Does the patient feel like ending their life today?No Actions Taken: No Patient Education Provided Pt was educated on the benefits of therapy and importance of compliance with sessions and HEP for rehabilitation. Pt was also educated on treatment diagnosis, POC, and frequency/duration of treatment. Clinical Impression Pt would benefit from PT interventions for possible lumbar disc herniation to address impairments in trunk ROM, LE strength and core stability as well as pain control. Lisandro Trujillo PT State License, [id number] documented in this encounter [facility] 05-26-2021 History of Present illness Narrative [facility] OUTPATIENT REHABILITATION DAILY TREATMENT NOTE Today's Date 05/26/2021 Patient Name: Tammi Correa Date of : 1975 Current Visit #: 28 Authorized Visits: 35 Case Name: Right Ankle Pain History: Pre-Treatment Pain Scale: 3 Symptoms: gradually improved Functional Diagnosis: 1. Achilles tendon injury, right, initial encounter Clinical Information: Subjective: her ankle isn't bothering her as much as her back. Objective Mod antalgic gait during stance phase. Treatments: Physical Therapy Exercise Log - 05/26/21 1209 OTHER Precautions/Contraindications Therex is the only code approved by insurance Notes visit 27: 10:45 - 11:30 Therapeutic Exercise (72064) Intervention SCIFIT 5' L4 Parameters standing calf (gastroc and soleus) stretch 3x20 Intervention BOSU Step ups - x10 fwd, lat Heel taps 4'' 2x10 Parameters standing rocker board fwd, lat x20 Intervention BOSU lunges - x20 alt Parameters BAPS standing fwd,retro/side to side L3 x20, cw/ccw x10 Intervention Lat ambulation, Retro - 15' x4 Parameters Excursion - x10 R stance in // bars - NT Intervention shuttle squats 50# x20 calf raises x20 SL 37# x20 Parameters Steps - 1 handrail reciprocal up step to down [address] heel raises - x10 Parameters step up and over - 4 step - x10 PT Treatment Times Therex Total Time 45 Direct Treatment Time 45 Total Treatment Time 45 Goals: Physical Therapy Ortho Goals: MOBILITY: Patient will be able to ambulate for 1 hour in community without difficulty in 8 weeks. MOBILITY: Patient will be able to ambulate on uneven surfaces without difficulty in 10 weeks. MOBILITY: Patient will be able to ascend/descend stairs without difficulty in 8 weeks. IMPAIRMENT: Patient will report pain <3/10 during prolonged standing, walking and stair negotiation in 10 weeks IMPAIRMENT: Improve gross MMT of the Right Ankle to 4+/5 in 10 weeks IMPAIRMENT: Improve AROM of Right Ankle DF and Eversion to at least 8 degrees in 8 weeks. IMPAIRMENT: Improve AROM of Right Ankle Inversion to at least 25 degrees in 8 weeks. OTHER: Patient will increase FOTO score from 16 to at least 55 to show MDC/MCII and expected functional outcome in 10 weeks. OTHER: Patient will be able to properly demonstrate independence with HEP in 1 week. Patient Education: Quality of movement with patient demonstrated understanding. Post-Treatment Pain Scale: 2 Assessment: Patient had an expected response to treatment. Skilled Intervention demonstrated by modifications of treatment per exercise log including increased load and safety interventions per exercise log. Progress towards goals as expected. Plan for Next Visit: Treatment Visit with focus on strengthening and AROM Kimberly Sherwood PTA STATE LICENSE, [id number] documented in this encounter [facility] 05-19-2021 History of Present illness Narrative Patient is here today for lower back pain.Patient has been doing therapy for her foot that she had surgery on. She feels like that has aggravated her previous back issues. reports that last Wednesday she did therapy and by the evening she could hardly move.She put Aspercreme on her backShe can only sleep for 1-2 hrs at night an then she feels like she has to readjust.She will lay down and her back will go numb.Having worsening leg numbness.She has therapy scheduled for this upcoming for her back.She has not had any improvement with Tylenol, Aleve or ibuprofen.She cannot stand and mop her kitchen floors, cannot do dishes.Last back surgery was in 2005. [facility] Work Phone: 05-19-2021 History of Present illness Narrative [facility] OUTPATIENT REHABILITATION DAILY TREATMENT NOTE Today's Date 05/19/2021 Patient Name: Tammi Correa Date of : 1975 Current Visit #: 26 Authorized Visits: 35 Case Name: Right Ankle Pain History: Pre-Treatment Pain Scale: 2 Symptoms: gradually improved Functional Diagnosis: 1. Achilles tendon injury, right, initial encounter Clinical Information: Subjective: Pt reports continued swelling with being on feet more. Objective Treatments: Physical Therapy Exercise Log - 05/19/21 1045 OTHER Precautions/Contraindications Therex is the only code approved by insurance Notes visit 25: 10:48 - 11:30 Therapeutic Exercise ([id number]) Intervention SCIFIT 5' L4 Parameters standing calf (gastroc and soleus) stretch 3x20 Intervention BOSU Step ups - x10 fwd, lat Heel taps 4'' 2x10 Parameters standing rocker board fwd, lat x20 Intervention BOSU lunges - x20 alt Parameters BAPS standing fwd,retro/side to side L3 x20, cw/ccw x10 Intervention Lat ambulation, Retro - 15' x4 Parameters Excursion - x10 R stance in // bars - NT Intervention shuttle squats 50# x20 calf raises x20 SL 37# x20 Parameters Steps - 1 handrail reciprocal up step to down [address] heel raises - x10 Parameters step up and over - 4 step - x10 PT Treatment Times Therex Total Time 42 Direct Treatment Time 42 Total Treatment Time 42 Goals: Physical Therapy Ortho Goals: MOBILITY: Patient will be able to ambulate for 1 hour in community without difficulty in 8 weeks. MOBILITY: Patient will be able to ambulate on uneven surfaces without difficulty in 10 weeks. MOBILITY: Patient will be able to ascend/descend stairs without difficulty in 8 weeks. IMPAIRMENT: Patient will report pain <3/10 during prolonged standing, walking and stair negotiation in 10 weeks IMPAIRMENT: Improve gross MMT of the Right Ankle to 4+/5 in 10 weeks IMPAIRMENT: Improve AROM of Right Ankle DF and Eversion to at least 8 degrees in 8 weeks. IMPAIRMENT: Improve AROM of Right Ankle Inversion to at least 25 degrees in 8 weeks. OTHER: Patient will increase FOTO score from 16 to at least 55 to show MDC/MCII and expected functional outcome in 10 weeks. OTHER: Patient will be able to properly demonstrate independence with HEP in 1 week. Patient Education: Quality of movement with patient demonstrated understanding. Post-Treatment Pain Scale: 2 Assessment: Patient had an expected response to treatment. Skilled Intervention demonstrated by modifications of treatment per exercise log including increased load and safety interventions per exercise log. Progress towards goals as expected. Plan for Next Visit: Treatment Visit with focus on strengthening and ROM Enrique Shah PTA STATE LICENSE, [id number] documented in this encounter [facility] 05-15-2021 History of Present illness Narrative [facility] OUTPATIENT REHABILITATION DAILY TREATMENT NOTE Today's Date 05/15/2021 Patient Name: Tammi Correa Date of : 1975 Current Visit #: 25 Authorized Visits: 35 Case Name: Right Ankle Pain History: Pre-Treatment Pain Scale: 0 Symptoms: gradually improved Functional Diagnosis: 1. Achilles tendon injury, right, initial encounter Clinical Information: Subjective: Pt reports ankle swelled up yesterday and had some pain in anterior ankle. Objective Treatments: Physical Therapy Exercise Log - 05/15/21 1048 OTHER Precautions/Contraindications Therex is the only code approved by insurance Notes visit 24: 10:48 - 11:30 Therapeutic Exercise (47703) Intervention SCIFIT 5' L4 Parameters standing calf (gastroc and soleus) stretch 3x20 Intervention BOSU Step ups - x10 fwd, lat Heel taps 4'' 2x10 Parameters standing rocker board fwd, lat x20 Intervention BOSU lunges - x20 alt Parameters BAPS standing fwd,retro/side to side L3 x20, cw/ccw x10 Intervention Lat ambulation, Retro - 15' x4 Parameters Excursion - x10 R stance in // bars - NT Intervention shuttle squats 50# x20 calf raises x20 SL 37# x20 Parameters Steps - 1 handrail reciprocal up step to down [address] x[address] heel raises - x10 PT Treatment Times Therex Total Time 42 Direct Treatment Time 42 Total Treatment Time 42 Goals: Physical Therapy Ortho Goals: MOBILITY: Patient will be able to ambulate for 1 hour in community without difficulty in 8 weeks. MOBILITY: Patient will be able to ambulate on uneven surfaces without difficulty in 10 weeks. MOBILITY: Patient will be able to ascend/descend stairs without difficulty in 8 weeks. IMPAIRMENT: Patient will report pain <3/10 during prolonged standing, walking and stair negotiation in 10 weeks IMPAIRMENT: Improve gross MMT of the Right Ankle to 4+/5 in 10 weeks IMPAIRMENT: Improve AROM of Right Ankle DF and Eversion to at least 8 degrees in 8 weeks. IMPAIRMENT: Improve AROM of Right Ankle Inversion to at least 25 degrees in 8 weeks. OTHER: Patient will increase FOTO score from 16 to at least 55 to show MDC/MCII and expected functional outcome in 10 weeks. OTHER: Patient will be able to properly demonstrate independence with HEP in 1 week. Patient Education: Quality of movement with patient demonstrated understanding. Post-Treatment Pain Scale: 0 Assessment: Patient had an expected response to treatment. Skilled Intervention demonstrated by modifications of treatment per exercise log including increased load and safety interventions per exercise log. Progress towards goals as expected. Plan for Next Visit: Treatment Visit with focus on strength and stability Enrique Shah PTA STATE LICENSE, [id number] documented in this encounter [facility] 05-09-2021 History of Present illness Narrative [facility] OUTPATIENT REHABILITATION DAILY TREATMENT NOTE Today's Date 05/09/2021 Patient Name: Tammi Correa Date of : 1975 Current Visit #: 23 Authorized Visits: 35 Case Name: Right Ankle Pain History: Pre-Treatment Pain Scale: 0 Symptoms: gradually improved Functional Diagnosis: 1. Achilles tendon injury, right, initial encounter Clinical Information: Subjective: Pt reports not needing boot anymore and comes into therapy with one crutch. Ankle feels achy but no c/o pain. Objective Treatments: Physical Therapy Exercise Log - 05/09/21 0830 OTHER Precautions/Contraindications Therex is the only code approved by insurance Notes visit 22: 8:30-9:15 Therapeutic Exercise (36715) Intervention SCIFIT 5' L4 Parameters standing calf (gastroc and soleus) stretch 3x20 Intervention Step ups - x10 fwd, lat 6 step Parameters standing rocker board fwd, lat x20 Intervention BOSU lunges - x20 alt Parameters BAPS standing fwd,retro/side to side L3 x20, cw/ccw x10 Intervention Lat ambulation, Retro - 15' x4 Parameters Excursion - x10 R stance in // bars - NT Intervention shuttle squats 50# x20 calf raises x20 SL 37# x20 Parameters Steps - 1 handrail reciprocal up step to daown [address] x[address] heel raises - x10 PT Treatment Times Therex Total Time 45 Direct Treatment Time 45 Total Treatment Time 45 Goals: Physical Therapy Ortho Goals: MOBILITY: Patient will be able to ambulate for 1 hour in community without difficulty in 8 weeks. MOBILITY: Patient will be able to ambulate on uneven surfaces without difficulty in 10 weeks. MOBILITY: Patient will be able to ascend/descend stairs without difficulty in 8 weeks. IMPAIRMENT: Patient will report pain <3/10 during prolonged standing, walking and stair negotiation in 10 weeks IMPAIRMENT: Improve gross MMT of the Right Ankle to 4+/5 in 10 weeks IMPAIRMENT: Improve AROM of Right Ankle DF and Eversion to at least 8 degrees in 8 weeks. IMPAIRMENT: Improve AROM of Right Ankle Inversion to at least 25 degrees in 8 weeks. OTHER: Patient will increase FOTO score from 16 to at least 55 to show MDC/MCII and expected functional outcome in 10 weeks. OTHER: Patient will be able to properly demonstrate independence with HEP in 1 week. Patient Education: Quality of movement with patient demonstrated understanding. Post-Treatment Pain Scale: 4 Assessment: Patient had an expected response to treatment. Skilled Intervention demonstrated by modifications of treatment per exercise log including increased load and safety interventions per exercise log. Progress towards goals as expected. Plan for Next Visit: Treatment Visit with focus on strengthening and ROM Enrique Shah PTA STATE LICENSE, [id number] documented in this encounter [facility] 04-30-2021 History of Present illness Narrative [facility] OUTPATIENT REHABILITATION DAILY TREATMENT NOTE Today's Date 04/30/2021 Patient Name: Tammi Correa Date of : 1975 Current Visit #: 22 Authorized Visits: 35 Case Name: Right Ankle Pain History: Pre-Treatment Pain Scale: 2 Symptoms: gradually improved Functional Diagnosis: 1. Achilles tendon injury, right, initial encounter Clinical Information: Subjective: Her ankle is slowly improving. She was in the pool and that helps loosen it up. Objective Continues with limited ROM in all planes. Treatments: Physical Therapy Exercise Log - 04/30/21 1210 OTHER Precautions/Contraindications Therex is the only code approved by insurance Notes visit 21 Therapeutic Exercise (08811) Intervention SCIFIT 5' L4 Parameters standing calf (gastroc and soleus) stretch 3x20 Intervention standing marches, hip abd and hip ext 2x10 Parameters weight shifts in tandem w/ right foot forward emphasizing samantha/toe x15 Intervention standing rocker board fwd, x20 Parameters Lat, Retro ambulation in // bars - x4 - NT Intervention BAPS standing fwd,retro/side to side L2 x20, cw/ccw x10 Parameters Excursion - x10 R stance in // bars Intervention BOSU lunge - R only x15 - NT Parameters standing DF AROM - x[address] ankle (no PF) - x15 GTB Parameters shuttle squats 50# x20 calf raises x20 - NT PT Treatment Times Therex Total Time 40 Direct Treatment Time 40 Total Treatment Time 40 Goals: Physical Therapy Ortho Goals: MOBILITY: Patient will be able to ambulate for 1 hour in community without difficulty in 8 weeks. MOBILITY: Patient will be able to ambulate on uneven surfaces without difficulty in 10 weeks. MOBILITY: Patient will be able to ascend/descend stairs without difficulty in 8 weeks. IMPAIRMENT: Patient will report pain <3/10 during prolonged standing, walking and stair negotiation in 10 weeks IMPAIRMENT: Improve gross MMT of the Right Ankle to 4+/5 in 10 weeks IMPAIRMENT: Improve AROM of Right Ankle DF and Eversion to at least 8 degrees in 8 weeks. IMPAIRMENT: Improve AROM of Right Ankle Inversion to at least 25 degrees in 8 weeks. OTHER: Patient will increase FOTO score from 16 to at least 55 to show MDC/MCII and expected functional outcome in 10 weeks. OTHER: Patient will be able to properly demonstrate independence with HEP in 1 week. Patient Education: Quality of movement with patient demonstrated understanding. Post-Treatment Pain Scale: 2 Assessment: Patient had an expected response to treatment. Skilled Intervention demonstrated by modifications of treatment per exercise log including increased intensity and safety interventions per exercise log. Progress towards goals as expected. Plan for Next Visit: Treatment Visit with focus on ROM and strengthening Kimberly Sherwood PTA STATE LICENSE, [id number] documented in this encounter [facility] 04-28-2021 History of Present illness Narrative [facility] OUTPATIENT REHABILITATION DAILY TREATMENT NOTE Today's Date 04/28/2021 Patient Name: Tammi Correa Date of : 1975 Current Visit #: 21 Authorized Visits: 22 Case Name: Right Ankle Pain History: Pre-Treatment Pain Scale: about the same Symptoms: gradually improved Functional Diagnosis: 1. Achilles tendon injury, right, initial encounter Clinical Information: Subjective: Pt denies change in med hx and reports no new complaints. Objective Ankle/Foot Right Ankle/Foot Range of Motion: Dorsiflexion Active: 4 Plantar Flexion Active: 42 Inversion Active: 18 Eversion Active: 12 Muscle Strength: Right muscle strength functional limits: recorded within available ROM. DorsiFlexion: 5 Plantar Flexion: 5 Inversion: 4- Eversion: 4 FOTO: 38 Treatments: Physical Therapy Exercise Log - 04/28/21 0917 OTHER Precautions/Contraindications Therex is the only code approved by insurance Notes visit 20 (20 of 21): 9:18 - 10:02 Therapeutic Exercise (48896) Intervention SCIFIT 5' L4 Parameters standing calf (gastroc and soleus) stretch 3x20 Intervention standing marches, hip abd and hip ext 2x10 Parameters weight shifts in tandem w/ right foot forward emphasizing samantha/toe x15 Intervention standing rocker board fwd, x20 Parameters Lat, Retro ambulation in // bars - x4 - NT Intervention BAPS standing fwd,retro/side to side L2 x20, cw/ccw x10 Parameters Excursion - x10 R stance in // bars Intervention BOSU lunge - R only x15 - NT Parameters standing DF AROM - x[address] ankle (no PF) - x15 GTB Parameters shuttle squats 50# x20 calf raises x20 - NT Manual Therapy (77502) Intervention -- PT Treatment Times Therex Total Time 44 Direct Treatment Time 44 Total Treatment Time 44 Goals: Physical Therapy Ortho Goals: MOBILITY: Patient will be able to ambulate for 1 hour in community without difficulty in 8 weeks. MOBILITY: Patient will be able to ambulate on uneven surfaces without difficulty in 10 weeks. MOBILITY: Patient will be able to ascend/descend stairs without difficulty in 8 weeks. IMPAIRMENT: Patient will report pain <3/10 during prolonged standing, walking and stair negotiation in 10 weeks IMPAIRMENT: Improve gross MMT of the Right Ankle to 4+/5 in 10 weeks IMPAIRMENT: Improve AROM of Right Ankle DF and Eversion to at least 8 degrees in 8 weeks. IMPAIRMENT: Improve AROM of Right Ankle Inversion to at least 25 degrees in 8 weeks. OTHER: Patient will increase FOTO score from 16 to at least 55 to show MDC/MCII and expected functional outcome in 10 weeks. OTHER: Patient will be able to properly demonstrate independence with HEP in 1 week. Patient Education: Quality of movement and HEP Adherence with patient verbalized understanding. Post-Treatment Pain Scale: 1 Assessment: Patient had an expected response to treatment. Skilled Intervention demonstrated by modifications of treatment per exercise log including assessment of patient's response and safety interventions per exercise log. Progress towards goals as expected. Plan for Next Visit: Treatment Visit with focus on ROM and strength progressions Lisandro Trujillo PT State License, [id number] documented in this encounter [facility] 04-22-2021 History of Present illness Narrative [facility] OUTPATIENT REHABILITATION DAILY TREATMENT NOTE Today's Date 04/22/2021 Patient Name: Tammi Correa Date of : 1975 Current Visit #: 20 Authorized Visits: 21 Case Name: Right Ankle Pain History: Pre-Treatment Pain Scale: 3 Symptoms: gradually improved Functional Diagnosis: 1. Achilles tendon injury, right, initial encounter Clinical Information: Subjective: Pt reports yesterday ankle felt really good but today its a little more achy and sore. Objective Treatments: Physical Therapy Exercise Log - 04/22/21 1000 OTHER Precautions/Contraindications Therex is the only code approved by insurance Notes visit 19 (): 10:00 - 10:45 Therapeutic Exercise (20978) Intervention SCIFIT 5' L4 Parameters standing calf (gastroc and soleus) stretch 3x20 Intervention standing marches, hip abd and hip ext 2x10 Parameters weight shifts s/s fwd/back x20 - NT Intervention standing rocker board fwd, x20 Parameters Lat, Retro ambulation in // bars - x4 Intervention BAPS standing fwd,retro/side to side L2 x20, cw/ccw x10 Parameters Excursion - x10 R stance in // bars Intervention BOSU lunge - R only x15 Parameters standing DF AROM - x[address] ankle (no PF) - x15 RTB Parameters shuttle squats 50# x20 calf raises x20 Manual Therapy (63774) Intervention STM along DF 10' - NT PT Treatment Times Therex Total Time 45 Direct Treatment Time 45 Total Treatment Time 45 Goals: Physical Therapy Ortho Goals: MOBILITY: Patient will be able to ambulate for 1 hour in community without difficulty in 8 weeks. MOBILITY: Patient will be able to ambulate on uneven surfaces without difficulty in 10 weeks. MOBILITY: Patient will be able to ascend/descend stairs without difficulty in 8 weeks. IMPAIRMENT: Patient will report pain <3/10 during prolonged standing, walking and stair negotiation in 10 weeks IMPAIRMENT: Improve gross MMT of the Right Ankle to 4+/5 in 10 weeks IMPAIRMENT: Improve AROM of Right Ankle DF and Eversion to at least 8 degrees in 8 weeks. IMPAIRMENT: Improve AROM of Right Ankle Inversion to at least 25 degrees in 8 weeks. OTHER: Patient will increase FOTO score from 16 to at least 55 to show MDC/MCII and expected functional outcome in 10 weeks. OTHER: Patient will be able to properly demonstrate independence with HEP in 1 week. Patient Education: Quality of movement with patient demonstrated understanding. Post-Treatment Pain Scale: 0 Assessment: Patient had an expected response to treatment. Skilled Intervention demonstrated by modifications of treatment per exercise log including increased load and safety interventions per exercise log. Progress towards goals as expected. Plan for Next Visit: Treatment Visit with focus on strengthening and ROM per protocol, Progress Note and Progress Note with focus on requesting more visits Enrique Shah PTA STATE LICENSE, [id number] documented in this encounter [facility] 04-21-2021 History of Present illness Narrative [facility] OUTPATIENT REHABILITATION DAILY TREATMENT NOTE Today's Date 04/21/2021 Patient Name: Tammi Correa Date of : 1975 Current Visit #: 18 Authorized Visits: 21 Case Name: Right Ankle Pain History: Pre-Treatment Pain Scale: 2 Symptoms: gradually improved Functional Diagnosis: 1. Achilles tendon injury, right, initial encounter Clinical Information: Subjective: Pt denies change in med hx and reports no new complaints. She has been continuing to wear her shoe about 3 hours per day and has removed another piece of her heel lift. Objective Treatments: Physical Therapy Exercise Log - 04/21/21 0915 OTHER Precautions/Contraindications Therex is the only code approved by insurance Notes visit 18 (18 of 21): 9:16 - 10:00 Therapeutic Exercise (03878) Intervention SCIFIT 5' L4 Parameters standing calf (gastroc and soleus) stretch 3x20 Intervention standing marches, hip abd and hip ext 2x10 Parameters weight shifts s/s fwd/back x20 - NT Intervention standing rocker board fwd, x20 Parameters Lat, Retro ambulation in // bars - x4 Intervention BAPS standing fwd,retro/side to side L2 x20, cw/ccw x10 Parameters Excursion - x10 R stance in // bars Intervention BOSU lunge - R only x15 Parameters standing DF AROM - x[address] ankle (no PF) - x15 RTB Parameters shuttle 50# x20 calf raises x20 Intervention -- Manual Therapy ([id number]) Intervention STM along DF 10' - NT PT Treatment Times Therex Total Time 44 Direct Treatment Time 44 Total Treatment Time 44 Goals: Physical Therapy Ortho Goals: MOBILITY: Patient will be able to ambulate for 1 hour in community without difficulty in 8 weeks. MOBILITY: Patient will be able to ambulate on uneven surfaces without difficulty in 10 weeks. MOBILITY: Patient will be able to ascend/descend stairs without difficulty in 8 weeks. IMPAIRMENT: Patient will report pain <3/10 during prolonged standing, walking and stair negotiation in 10 weeks IMPAIRMENT: Improve gross MMT of the Right Ankle to 4+/5 in 10 weeks IMPAIRMENT: Improve AROM of Right Ankle DF and Eversion to at least 8 degrees in 8 weeks. IMPAIRMENT: Improve AROM of Right Ankle Inversion to at least 25 degrees in 8 weeks. OTHER: Patient will increase FOTO score from 16 to at least 55 to show MDC/MCII and expected functional outcome in 10 weeks. OTHER: Patient will be able to properly demonstrate independence with HEP in 1 week. Patient Education: Quality of movement, HEP Adherence and Pain Management with patient verbalized understanding. Post-Treatment Pain Scale: 5 Assessment: Patient had an expected response to treatment. Skilled Intervention demonstrated by modifications of treatment per exercise log including increased intensity and assessment of patient's response and safety interventions per exercise log. Progress towards goals as expected. Plan for Next Visit: Treatment Visit with focus on DF ROM Lisandro Trujillo PT State License, [id number] documented in this encounter [facility] 04-14-2021 History of Present illness Narrative [facility] OUTPATIENT REHABILITATION DAILY TREATMENT NOTE Today's Date 04/14/2021 Patient Name: Tammi Correa Date of : 1975 Current Visit #: 18 Authorized Visits: 21 Case Name: Right Ankle Pain History: Pre-Treatment Pain Scale: 5 Symptoms: stabilized Functional Diagnosis: 1. Achilles tendon injury, right, initial encounter Clinical Information: Subjective: Pt reports ankle is stiff today and has been following protocol for weight bearing Objective Treatments: Physical Therapy Exercise Log - 04/14/21 0915 OTHER Precautions/Contraindications Therex is the only code approved by insurance Notes visit 17 (17 of 21): 9:15 - 10:00 Therapeutic Exercise (00238) Intervention SCIFIT 5' L2 Parameters standing calf (gastroc and soleus) stretch 3x20 Intervention standing in bars marches 2x10 Parameters weight shifts s/s fwd/back x20 Intervention standing hip abd x20 Parameters Lat, Retro ambulation in // bars - x4 Intervention BAPS standing fwd,retro/side to side L1 x20, cw/ccw x10 Parameters standing rocker board fwd, x20 Intervention BOSU lunge - R only x15 Parameters DF AROM - x[address] ankle - x15 YTB NT Parameters shuttle 37# x20 calf raises x20 - Intervention Excursion - x10 R stance in // bars Manual Therapy ([id number]) Intervention STM along DF 10' - NT PT Treatment Times Therex Total Time 45 Direct Treatment Time 45 Total Treatment Time 45 Goals: Physical Therapy Ortho Goals: MOBILITY: Patient will be able to ambulate for 1 hour in community without difficulty in 8 weeks. MOBILITY: Patient will be able to ambulate on uneven surfaces without difficulty in 10 weeks. MOBILITY: Patient will be able to ascend/descend stairs without difficulty in 8 weeks. IMPAIRMENT: Patient will report pain <3/10 during prolonged standing, walking and stair negotiation in 10 weeks IMPAIRMENT: Improve gross MMT of the Right Ankle to 4+/5 in 10 weeks IMPAIRMENT: Improve AROM of Right Ankle DF and Eversion to at least 8 degrees in 8 weeks. IMPAIRMENT: Improve AROM of Right Ankle Inversion to at least 25 degrees in 8 weeks. OTHER: Patient will increase FOTO score from 16 to at least 55 to show MDC/MCII and expected functional outcome in 10 weeks. OTHER: Patient will be able to properly demonstrate independence with HEP in 1 week. Patient Education: Quality of movement with patient demonstrated understanding. Post-Treatment Pain Scale: 10 Assessment: Patient had an expected response to treatment. Skilled Intervention demonstrated by modifications of treatment per exercise log including increased load and safety interventions per exercise log. Progress towards goals as expected. Plan for Next Visit: Treatment Visit with focus on ROM as tolerated per protocol Enrique Shah PTA STATE LICENSE, [id number] documented in this encounter [facility] 04-09-2021 History of Present illness Narrative [facility] OUTPATIENT REHABILITATION DAILY TREATMENT NOTE Today's Date 04/09/2021 Patient Name: Tammi Correa Date of : 1975 Current Visit #: 17 Authorized Visits: 21 Case Name: Right Ankle Pain History: Pre-Treatment Pain Scale: 4 Symptoms: gradually improved Functional Diagnosis: 1. Achilles tendon injury, right, initial encounter Clinical Information: Subjective: Pt reports having occasional cramping in foot and sharp pain up top of foot into ankle. Pt takes layer of wedge off heel lift today and each Wednesday. Objective Treatments: Physical Therapy Exercise Log - 04/09/21 0914 OTHER Precautions/Contraindications Therex is the only code approved by insurance Notes visit 16 (): 9:15 - 10:00 Therapeutic Exercise (37852) Intervention SCIFIT 5' L2 Parameters standing calf (gastroc and soleus) stretch 3x20 Intervention standing in bars marches 2x10 Parameters weight shifts s/s fwd/back x20 Intervention standing hip abd x20 Parameters Lat, Retro ambulation in // bars - x4 Intervention BAPS standing fwd,retro/side to side L1 x20 Parameters standing rocker board fwd, x20 Intervention BOSU lunge - R only x15 Parameters DF AROM - x[address] ankle - x15 YTB NT Parameters shuttle 37# x20 calf raises x20 - NT Manual Therapy (11166) Intervention STM along DF 10' - NT PT Treatment Times Therex Total Time 45 Direct Treatment Time 45 Total Treatment Time 45 Goals: Physical Therapy Ortho Goals: MOBILITY: Patient will be able to ambulate for 1 hour in community without difficulty in 8 weeks. MOBILITY: Patient will be able to ambulate on uneven surfaces without difficulty in 10 weeks. MOBILITY: Patient will be able to ascend/descend stairs without difficulty in 8 weeks. IMPAIRMENT: Patient will report pain <3/10 during prolonged standing, walking and stair negotiation in 10 weeks IMPAIRMENT: Improve gross MMT of the Right Ankle to 4+/5 in 10 weeks IMPAIRMENT: Improve AROM of Right Ankle DF and Eversion to at least 8 degrees in 8 weeks. IMPAIRMENT: Improve AROM of Right Ankle Inversion to at least 25 degrees in 8 weeks. OTHER: Patient will increase FOTO score from 16 to at least 55 to show MDC/MCII and expected functional outcome in 10 weeks. OTHER: Patient will be able to properly demonstrate independence with HEP in 1 week. Patient Education: Quality of movement with patient demonstrated understanding. Post-Treatment Pain Scale: 6 Assessment: Patient had an expected response to treatment. Skilled Intervention demonstrated by modifications of treatment per exercise log including increased load and safety interventions per exercise log. Progress towards goals as expected. Plan for Next Visit: Treatment Visit with focus on strengthening and ROM as tolerated Enrique Shah PTA STATE LICENSE, [id number] documented in this encounter [facility] 04-07-2021 History of Present illness Narrative [facility] OUTPATIENT REHABILITATION DAILY TREATMENT NOTE Today's Date 04/07/2021 Patient Name: Tammi Correa Date of : 1975 Current Visit #: 16 Authorized Visits: 21 Case Name: Right Ankle Pain History: Pre-Treatment Pain Scale: 6 Symptoms: stabilized Functional Diagnosis: 1. Achilles tendon injury, right, initial encounter Clinical Information: Subjective: Pt denies change in med hx. She reports continuing to have some pain along the medial foot/ankle region as well as aching throughout the ankle. 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 Objective Treatments: Physical Therapy Exercise Log - 04/07/21917 OTHER Precautions/Contraindications Therex is the only code approved by insurance Notes visit 15 (): 9:18 - 10:00 Therapeutic Exercise (16568) Intervention SCIFIT 5' L2 Parameters DF AROM - x20 Intervention standing in bars NetEffect 2x10 Parameters shuttle 37# x20 calf raises x20 - NT Intervention standing calf (gastroc and soleus) stretch 3x20 Parameters weight shifts s/s fwd/back x20 Intervention Amb in clinic with crutch 32' x4 laps Parameters standing hip abd x[address] ankle - x15 YTB NT Parameters seated rocker board fwd,lat x20 R LE only Intervention BAPS fwd,retro/side to side L1 x20 Parameters -- Manual Therapy (54836) Intervention STM along DF 10' - NT PT Treatment Times Therex Total Time 42 Direct Treatment Time 42 Total Treatment Time 42 Goals: Physical Therapy Ortho Goals: MOBILITY: Patient will be able to ambulate for 1 hour in community without difficulty in 8 weeks. MOBILITY: Patient will be able to ambulate on uneven surfaces without difficulty in 10 weeks. MOBILITY: Patient will be able to ascend/descend stairs without difficulty in 8 weeks. IMPAIRMENT: Patient will report pain <3/10 during prolonged standing, walking and stair negotiation in 10 weeks IMPAIRMENT: Improve gross MMT of the Right Ankle to 4+/5 in 10 weeks IMPAIRMENT: Improve AROM of Right Ankle DF and Eversion to at least 8 degrees in 8 weeks. IMPAIRMENT: Improve AROM of Right Ankle Inversion to at least 25 degrees in 8 weeks. OTHER: Patient will increase FOTO score from 16 to at least 55 to show MDC/MCII and expected functional outcome in 10 weeks. OTHER: Patient will be able to properly demonstrate independence with HEP in 1 week. Patient Education: Quality of movement with patient verbalized understanding. Post-Treatment Pain Scale: 6 Assessment: Patient had an expected response to treatment. Skilled Intervention demonstrated by modifications of treatment per exercise log including increased mobility and assessment of patient's response and safety interventions per exercise log. Progress towards goals as expected. Plan for Next Visit: Treatment Visit with focus on continued strength and stability as well as weightbearing progression per protocol. Treatment directed and supervised by supervising therapist: Lisandro Trujillo PT, DPT. Jasmyne Alvarez No licensure found in state: [place] Lisandro Trujillo PT, DPT State License, [id number] documented in this encounter [facility] 04-03-2021 History of Present illness Narrative [facility] OUTPATIENT REHABILITATION DAILY TREATMENT NOTE Today's Date 04/03/2021 Patient Name: Tammi Correa Date of : 1975 Current Visit #: 15 Authorized Visits: 21 Case Name: Right Ankle Pain History: Pre-Treatment Pain Scale: 6 Symptoms: stabilized Functional Diagnosis: 1. Achilles tendon injury, right, initial encounter Clinical Information: Subjective: Pt reports pain in ankle and top of foot. Not released for full WB at this time. Objective Treatments: Physical Therapy Exercise Log - 04/03/21 1001 OTHER Precautions/Contraindications Therex is the only code approved by insurance Notes visit 14 (14 of 21): 10:00 - 10:50 Therapeutic Exercise (04746) Intervention SCIFIT 5' L2 Parameters DF AROM - x20 Intervention standing in bars marches 2x10 Parameters shuttle 37# x20 calf raises x20 - Intervention standing calf stretch 3x[address] Runners stretch - 10 sec x5 Intervention weight shifts s/s fwd/back x[address] ankle - x15 YTB NT Intervention Amb in clinic with crutch 32' x4 laps Parameters seated rocker board fwd,lat x20 R LE only Intervention standing hip abd x20 Manual Therapy (28200) Intervention STM along DF 10' PT Treatment Times Therex Total Time 40 Manual Therapy Total Time 10 Direct Treatment Time 50 Total Treatment Time 50 Goals: Physical Therapy Ortho Goals: MOBILITY: Patient will be able to ambulate for 1 hour in community without difficulty in 8 weeks. MOBILITY: Patient will be able to ambulate on uneven surfaces without difficulty in 10 weeks. MOBILITY: Patient will be able to ascend/descend stairs without difficulty in 8 weeks. IMPAIRMENT: Patient will report pain <3/10 during prolonged standing, walking and stair negotiation in 10 weeks IMPAIRMENT: Improve gross MMT of the Right Ankle to 4+/5 in 10 weeks IMPAIRMENT: Improve AROM of Right Ankle DF and Eversion to at least 8 degrees in 8 weeks. IMPAIRMENT: Improve AROM of Right Ankle Inversion to at least 25 degrees in 8 weeks. OTHER: Patient will increase FOTO score from 16 to at least 55 to show MDC/MCII and expected functional outcome in 10 weeks. OTHER: Patient will be able to properly demonstrate independence with HEP in 1 week. Patient Education: Quality of movement with patient demonstrated understanding. Post-Treatment Pain Scale: 2 Assessment: Patient had an expected response to treatment. Skilled Intervention demonstrated by modifications of treatment per exercise log including increased load and safety interventions per exercise log. Progress towards goals as expected. Plan for Next Visit: Treatment Visit with focus on ROM per protocol Enrique Shah PTA STATE LICENSE, [id number] documented in this encounter [facility] 03-31-2021 History of Present illness Narrative [facility] OUTPATIENT REHABILITATION DAILY TREATMENT NOTE Today's Date 03/31/2021 Patient Name: Tammi Correa Date of : 1975 Current Visit #: 14 Authorized Visits: 21 Case Name: Right Ankle Pain History: Pre-Treatment Pain Scale: 10 Symptoms: gradually worsened Functional Diagnosis: 1. Achilles tendon injury, right, initial encounter Clinical Information: Subjective: Pt denies change in med hx. She states that the foot/ankle is pretty sore today specifically along the dorsal aspect. She reports that she is no longer wearing the boot. Objective Treatments: Physical Therapy Exercise Log - 03/31/21 0918 OTHER Precautions/Contraindications Therex is the only code approved by insurance Notes visit 13 (): 9:18 - 10:06 Therapeutic Exercise (46357) Intervention SCIFIT 5' L2 Parameters DF AROM - x20 Intervention standing in bars marches 2x10 Parameters shuttle 37# x20 calf raises x20 - NT Intervention standing calf stretch 3x20 Parameters standing lunge stretch 5x10 Intervention weight shifts s/s fwd/back x[address] ankle - x15 YTB NT Intervention Amb in clinic with crutch 32' x4 laps Parameters seated rocker board fwd,lat x20 Intervention standing hip abd x20 Manual Therapy (47734) Intervention STM along DF 10' PT Treatment Times Therex Total Time 38 Manual Therapy Total Time 10 Direct Treatment Time 48 Total Treatment Time 48 Goals: Physical Therapy Ortho Goals: MOBILITY: Patient will be able to ambulate for 1 hour in community without difficulty in 8 weeks. MOBILITY: Patient will be able to ambulate on uneven surfaces without difficulty in 10 weeks. MOBILITY: Patient will be able to ascend/descend stairs without difficulty in 8 weeks. IMPAIRMENT: Patient will report pain <3/10 during prolonged standing, walking and stair negotiation in 10 weeks IMPAIRMENT: Improve gross MMT of the Right Ankle to 4+/5 in 10 weeks IMPAIRMENT: Improve AROM of Right Ankle DF and Eversion to at least 8 degrees in 8 weeks. IMPAIRMENT: Improve AROM of Right Ankle Inversion to at least 25 degrees in 8 weeks. OTHER: Patient will increase FOTO score from 16 to at least 55 to show MDC/MCII and expected functional outcome in 10 weeks. OTHER: Patient will be able to properly demonstrate independence with HEP in 1 week. Patient Education: Quality of movement with patient verbalized understanding. Post-Treatment Pain Scale: 10 Assessment: Patient had an expected response to treatment. Skilled Intervention demonstrated by modifications of treatment per exercise log including increased mobility and assessment of patient's response and safety interventions per exercise log. Progress towards goals as expected. Plan for Next Visit: Treatment Visit with focus on continued focus on weightbearing and improving DF ROM. Treatment directed and supervised by supervising therapist: Lisandro Trujillo PT, DPT. Jasmyne Alvarez No licensure found in state: [place] Lisandro Trujillo PT, DPT State License, [id number] documented in this encounter [facility] 03-24-2021 History of Present illness Narrative [facility] OUTPATIENT REHABILITATION DAILY TREATMENT NOTE Today's Date 03/24/2021 Patient Name: Tammi Correa Date of : 1975 Current Visit #: 12 Authorized Visits: 21 Case Name: Right Ankle Pain History: Pre-Treatment Pain Scale: 2 Symptoms: gradually improved Functional Diagnosis: 1. Achilles tendon injury, right, initial encounter Clinical Information: Subjective: She was wearing her tennis shoe for several hours at a time. Objective Performed stretches and exercises with tennis shoe on. Ambulates with crutches with tennis shoes in facility. VC's to keep foot in neutral position for walking. Treatments: Physical Therapy Exercise Log - 03/24/21 1016 OTHER Precautions/Contraindications Therex is the only code approved by insurance Notes visit 11 (): 8:30-9:10 Therapeutic Exercise ([id number]) Intervention SCIFIT 5' lv 1 Parameters DF AROM - x20 Intervention standing in bars marches 2x10 Parameters shuttle 37# x20 calf raises x20 Intervention Towel plantar fasciitis stretch - 20 sec x10 NT Parameters ankle alphabet - 1x Intervention STM along PF 10' / with stick along gastoc NT Parameters 4 way ankle - x15 YTB NT Intervention weight shifts s/s fwd/back x20 Parameters Amb in clinic with single crutch 32' x4 laps Intervention seated rocker board 2' Parameters supine hip abd/add RTB x20 PT Treatment Times Therex Total Time 40 Direct Treatment Time 40 Total Treatment Time 40 Goals: Physical Therapy Ortho Goals: MOBILITY: Patient will be able to ambulate for 1 hour in community without difficulty in 8 weeks. MOBILITY: Patient will be able to ambulate on uneven surfaces without difficulty in 10 weeks. MOBILITY: Patient will be able to ascend/descend stairs without difficulty in 8 weeks. IMPAIRMENT: Patient will report pain <3/10 during prolonged standing, walking and stair negotiation in 10 weeks IMPAIRMENT: Improve gross MMT of the Right Ankle to 4+/5 in 10 weeks IMPAIRMENT: Improve AROM of Right Ankle DF and Eversion to at least 8 degrees in 8 weeks. IMPAIRMENT: Improve AROM of Right Ankle Inversion to at least 25 degrees in 8 weeks. OTHER: Patient will increase FOTO score from 16 to at least 55 to show MDC/MCII and expected functional outcome in 10 weeks. OTHER: Patient will be able to properly demonstrate independence with HEP in 1 week. Patient Education: Quality of movement with patient demonstrated understanding. Post-Treatment Pain Scale: 2 Assessment: Patient had an expected response to treatment. Skilled Intervention demonstrated by modifications of treatment per exercise log including increased load and safety interventions per exercise log. Progress towards goals as expected. Plan for Next Visit: Treatment Visit with focus on strengthening Kimberly Sherwood PTA STATE LICENSE, [id number] documented in this encounter [facility] 03-14-2021 History of Present illness Narrative [facility] OUTPATIENT REHABILITATION DAILY TREATMENT NOTE Today's Date 03/14/2021 Patient Name: Tammi Correa Date of : 1975 Current Visit #: 9 Authorized Visits: 21 Case Name: Right Ankle Pain History: Pre-Treatment Pain Scale: 1 Symptoms: stabilized Functional Diagnosis: 1. Achilles tendon injury, right, initial encounter Clinical Information: Subjective: Pt reports a lot of increased soreness in calf today, she also has some pain Objective Pt had increased difficulty with step through amb using FWW, she was able to wt shift easily but seemed to struggle with toe touch position of brace Treatments: Physical Therapy Exercise Log - 03/14/21 0923 OTHER Precautions/Contraindications Therex is the only code approved by insurance Notes visit 8 (): Therapeutic Exercise (32335) Parameters DF AROM - x20 Intervention Toe ext/flex AROM - x20 Parameters Towel DF stretch - 20 sec x10 Intervention Towel plantar fasciitis stretch - 20 sec x10 Parameters ankle alphabet - 1x Intervention STM along PF 10' Parameters 4 way ankle - x15 YTB Intervention weight shifts s/s fwd/back x10 Goals: Physical Therapy Ortho Goals: MOBILITY: Patient will be able to ambulate for 1 hour in community without difficulty in 8 weeks. MOBILITY: Patient will be able to ambulate on uneven surfaces without difficulty in 10 weeks. MOBILITY: Patient will be able to ascend/descend stairs without difficulty in 8 weeks. IMPAIRMENT: Patient will report pain <3/10 during prolonged standing, walking and stair negotiation in 10 weeks IMPAIRMENT: Improve gross MMT of the Right Ankle to 4+/5 in 10 weeks IMPAIRMENT: Improve AROM of Right Ankle DF and Eversion to at least 8 degrees in 8 weeks. IMPAIRMENT: Improve AROM of Right Ankle Inversion to at least 25 degrees in 8 weeks. OTHER: Patient will increase FOTO score from 16 to at least 55 to show MDC/MCII and expected functional outcome in 10 weeks. OTHER: Patient will be able to properly demonstrate independence with HEP in 1 week. Patient Education: Verbal HEP with patient verbalized understanding. Post-Treatment Pain Scale: 1 Assessment: Patient had an expected response to treatment. Pt may be able to amb with more normal mechanics after reduction of heel lift in boot Skilled Intervention demonstrated by modifications of treatment per exercise log including assessment of patient's response and safety interventions per exercise log. Progress towards goals as expected. Plan for Next Visit: Treatment Visit with focus on progressing as tolerated Collin Rutherford PTA STATE LICENSE, [id number] documented in this encounter [facility] 03-04-2021 History of Present illness Narrative [facility] OUTPATIENT REHABILITATION DAILY TREATMENT NOTE Today's Date 03/04/2021 Patient Name: Tammi Correa Date of : 1975 Current Visit #: 7 Authorized Visits: 9 Case Name: Right Ankle Pain History: Pre-Treatment Pain Scale: 2 Symptoms: gradually improved Functional Diagnosis: 1. Achilles tendon injury, right, initial encounter Clinical Information: Subjective: her ankle is still stiff and unable to DF to 90 degrees. She is compliant with HEP. Objective Per protocol: Add 10# wt each day. Initiated wt shifts in parallel bars with gastroc and achilles tightness and Mod UE support on bars. Treatments: Physical Therapy Exercise Log - 03/04/21 1516 OTHER Notes visit 7: 2:30-3:10 Therapeutic Exercise ([id number]) Intervention provided written HEP handouts consisting of the following: Parameters DF AROM - x20 Intervention Toe ext/flex AROM - x20 Parameters Towel DF stretch - 20 sec x10 Intervention Towel plantar fasciitis stretch - 20 sec x10 Parameters ankle alphabet - 1x Intervention STM along PF 10' Parameters 4 way ankle - x15 YTB Intervention weight shifts s/s fwd/back x10 Manual Therapy (54964) Intervention STM - x10 min arch of foot PT Treatment Times Therex Total Time 40 Direct Treatment Time 40 Total Treatment Time 40 Goals: Physical Therapy Ortho Goals: MOBILITY: Patient will be able to ambulate for 1 hour in community without difficulty in 8 weeks. MOBILITY: Patient will be able to ambulate on uneven surfaces without difficulty in 10 weeks. MOBILITY: Patient will be able to ascend/descend stairs without difficulty in 8 weeks. IMPAIRMENT: Patient will report pain <3/10 during prolonged standing, walking and stair negotiation in 10 weeks IMPAIRMENT: Improve gross MMT of the Right Ankle to 4+/5 in 10 weeks IMPAIRMENT: Improve AROM of Right Ankle DF and Eversion to at least 8 degrees in 8 weeks. IMPAIRMENT: Improve AROM of Right Ankle Inversion to at least 25 degrees in 8 weeks. OTHER: Patient will increase FOTO score from 16 to at least 55 to show MDC/MCII and expected functional outcome in 10 weeks. OTHER: Patient will be able to properly demonstrate independence with HEP in 1 week. Patient Education: Quality of movement with patient demonstrated understanding. Post-Treatment Pain Scale: 2 Assessment: Patient had an expected response to treatment. Skilled Intervention demonstrated by modifications of treatment per exercise log including increased intensity and safety interventions per exercise log. Progress towards goals as expected. Plan for Next Visit: Treatment Visit with focus on stretches. Kimberly Sherwood PTA STATE LICENSE, [id number] documented in this encounter [facility] 02-26-2021 History of Present illness Narrative [facility] OUTPATIENT REHABILITATION DAILY TREATMENT NOTE Today's Date 02/26/2021 Patient Name: Tammi Correa Date of : 1975 Current Visit #: 6 Authorized Visits: 9 Case Name: Right Ankle Pain History: Pre-Treatment Pain Scale: 0 Symptoms: gradually improved Functional Diagnosis: 1. Achilles tendon injury, right, initial encounter Clinical Information: Subjective: Pt had f/u with surgeon and wants to continue with flexibility and instructed on new WB progressions. Objective Treatments: Physical Therapy Exercise Log - 02/26/21 1301 OTHER Notes visit 6: 1: 00 - 1:45 Therapeutic Exercise ([id number]) Intervention provided written HEP handouts consisting of the following: Parameters DF AROM - x20 Intervention Toe ext/flex AROM - x20 Parameters Towel DF stretch - 20 sec x10 Intervention Towel plantar fasciitis stretch - 20 sec x10 Parameters ankle alphabet - 1x Intervention STM along PF 10' Parameters 4 way ankle - x15 YTB Manual Therapy (43716) Intervention STM - x10 min arch of foot PT Treatment Times Therex Total Time 35 Manual Therapy Total Time 10 Direct Treatment Time 45 Total Treatment Time 45 Goals: Physical Therapy Ortho Goals: MOBILITY: Patient will be able to ambulate for 1 hour in community without difficulty in 8 weeks. MOBILITY: Patient will be able to ambulate on uneven surfaces without difficulty in 10 weeks. MOBILITY: Patient will be able to ascend/descend stairs without difficulty in 8 weeks. IMPAIRMENT: Patient will report pain <3/10 during prolonged standing, walking and stair negotiation in 10 weeks IMPAIRMENT: Improve gross MMT of the Right Ankle to 4+/5 in 10 weeks IMPAIRMENT: Improve AROM of Right Ankle DF and Eversion to at least 8 degrees in 8 weeks. IMPAIRMENT: Improve AROM of Right Ankle Inversion to at least 25 degrees in 8 weeks. OTHER: Patient will increase FOTO score from 16 to at least 55 to show MDC/MCII and expected functional outcome in 10 weeks. OTHER: Patient will be able to properly demonstrate independence with HEP in 1 week. Patient Education: Quality of movement with patient demonstrated understanding. Post-Treatment Pain Scale: 0 Assessment: Patient had an expected response to treatment. Skilled Intervention demonstrated by modifications of treatment per exercise log including increased load and safety interventions per exercise log. Progress towards goals as expected. Plan for Next Visit: Treatment Visit with focus on ROM and flexability Enrique Shah PTA STATE LICENSE, [id number] documented in this encounter [facility] 02-18-2021 History of Present illness Narrative [facility] OUTPATIENT REHABILITATION DAILY TREATMENT NOTE Today's Date 02/18/2021 Patient Name: Tammi Correa Date of : 1975 Current Visit #: 5 Authorized Visits: 9 Case Name: Right Ankle Pain History: Pre-Treatment Pain Scale: 1 Symptoms: gradually improved Functional Diagnosis: 1. Achilles tendon injury, right, initial encounter Clinical Information: Subjective: She still has swelling as the day goes on. She elevates her foot and the swelling goes down after about 30 min. Objective Continues with palpable crepitus along PF. Mild swelling along dorsal foot Treatments: Physical Therapy Exercise Log - 02/18/21 6493 OTHER Notes visit 5: 14:30-15:10 Therapeutic Exercise (31230) Intervention provided written HEP handouts consisting of the following: Parameters DF AROM Intervention Toe ext/flex AROM Parameters Towel DF stretch Intervention Towel plantar fasciitis stretch Parameters ankle alphabet Intervention STM along PF 6' PT Treatment Times Therex Total Time 40 Direct Treatment Time 40 Total Treatment Time 40 Goals: Physical Therapy Ortho Goals: MOBILITY: Patient will be able to ambulate for 1 hour in community without difficulty in 8 weeks. MOBILITY: Patient will be able to ambulate on uneven surfaces without difficulty in 10 weeks. MOBILITY: Patient will be able to ascend/descend stairs without difficulty in 8 weeks. IMPAIRMENT: Patient will report pain <3/10 during prolonged standing, walking and stair negotiation in 10 weeks IMPAIRMENT: Improve gross MMT of the Right Ankle to 4+/5 in 10 weeks IMPAIRMENT: Improve AROM of Right Ankle DF and Eversion to at least 8 degrees in 8 weeks. IMPAIRMENT: Improve AROM of Right Ankle Inversion to at least 25 degrees in 8 weeks. OTHER: Patient will increase FOTO score from 16 to at least 55 to show MDC/MCII and expected functional outcome in 10 weeks. OTHER: Patient will be able to properly demonstrate independence with HEP in 1 week. Patient Education: Quality of movement with patient demonstrated understanding. Post-Treatment Pain Scale: 2 Assessment: Patient had an expected response to treatment. Skilled Intervention demonstrated by modifications of treatment per exercise log including increased intensity and safety interventions per exercise log. Progress towards goals as expected. Plan for Next Visit: Treatment Visit with focus on protocol Kimberly Sherwood PTA STATE LICENSE, [id number] documented in this encounter [facility] 02-11-2021 History of Present illness Narrative [facility] OUTPATIENT REHABILITATION DAILY TREATMENT NOTE Today's Date 02/11/2021 Patient Name: Tammi Correa Date of : 1975 Current Visit #: 4 Authorized Visits: 9 Case Name: Right Ankle Pain History: Pre-Treatment Pain Scale: 2 Symptoms: gradually improved Functional Diagnosis: 1. Achilles tendon injury, right, initial encounter Clinical Information: Subjective: she saw her doctor and he said she can put 10 pounds of pressure on her foot at this time. Objective Pt went to the scales to see how 10 pounds feels. She has a lot less swelling in her foot this visit. Treatments: Physical Therapy Exercise Log - 02/11/21 0058 OTHER Notes visit 4: 13:00-13:35 Therapeutic Exercise ([id number]) Intervention provided written HEP handouts consisting of the following: Parameters DF AROM Intervention Toe ext/flex AROM Parameters Towel DF stretch Intervention Towel plantar fasciitis stretch Parameters ankle alphabet Intervention STM along PF 6' PT Treatment Times Therex Total Time 35 Direct Treatment Time 35 Total Treatment Time 35 Goals: Physical Therapy Ortho Goals: MOBILITY: Patient will be able to ambulate for 1 hour in community without difficulty in 8 weeks. MOBILITY: Patient will be able to ambulate on uneven surfaces without difficulty in 10 weeks. MOBILITY: Patient will be able to ascend/descend stairs without difficulty in 8 weeks. IMPAIRMENT: Patient will report pain <3/10 during prolonged standing, walking and stair negotiation in 10 weeks IMPAIRMENT: Improve gross MMT of the Right Ankle to 4+/5 in 10 weeks IMPAIRMENT: Improve AROM of Right Ankle DF and Eversion to at least 8 degrees in 8 weeks. IMPAIRMENT: Improve AROM of Right Ankle Inversion to at least 25 degrees in 8 weeks. OTHER: Patient will increase FOTO score from 16 to at least 55 to show MDC/MCII and expected functional outcome in 10 weeks. OTHER: Patient will be able to properly demonstrate independence with HEP in 1 week. Patient Education: Quality of movement with patient demonstrated understanding. Post-Treatment Pain Scale: 3 Assessment: Patient had an expected response to treatment. Skilled Intervention demonstrated by modifications of treatment per exercise log including increased intensity and safety interventions per exercise log. Progress towards goals as expected. Plan for Next Visit: Treatment Visit with focus on DF stretches Kimberly Sherwood PTA STATE LICENSE, [id number] documented in this encounter [facility] 02-04-2021 History of Present illness Narrative Patent is here today for 6 week follow upPatient's back MRI was denied because they want her to therapy first. Which she cannot do because of her being in a tall walking boot. She was nonweight bearing for 6 weeks, now doing 10 lbs or less of weight on it. She does not see the yarn sizer back until the end of February. Having some foot swelling now that she is walking on it some. She having some ankle pain.She did not start the Adipex.She would like to get a mammogram ordered. [facility] Work Phone: 02-04-2021 History of Present illness Narrative Patent is here today for 6 week follow upPatient's back MRI was denied because they want her to therapy first. Which she cannot do because of her being in a tall walking boot. She was non weight bearing for 6 weeks, now doing 10 lbs or less of weight on it. She does not see the yarn sizer back until the end of February. Having some foot swelling now that she is walking on it some. She having some ankle pain.She did not start the Adipex.She would like to get a mammogram ordered. [facility] Work Phone: 01-29-2021 History of Present illness Narrative [facility] OUTPATIENT REHABILITATION DAILY TREATMENT NOTE Today's Date 01/29/2021 Patient Name: Tammi Correa Date of : 1975 Current Visit #: 2 Authorized Visits: 9 Case Name: Right Ankle Pain History: Pre-Treatment Pain Scale: 3 Symptoms: stabilized Functional Diagnosis: 1. Achilles tendon injury, right, initial encounter Clinical Information: Subjective: She accidentally fell on her foot yesterday. She was in a lot of pain last evening but iced it all last night. It's not too painful today. Objective Reviewed stretches and HEP. Added light STM along PF. Treatments: Physical Therapy Exercise Log - 01/29/21 1600 OTHER Notes visit 2: 3:15-3:45 Therapeutic Exercise ([id number]) Intervention provided written HEP handouts consisting of the following: Parameters DF AROM Intervention Toe ext/flex AROM Parameters Towel DF stretch Intervention Towel plantar fasciitis stretch Parameters ankle alphabet Intervention STM along PF 6' PT Treatment Times Therex Total Time 30 Direct Treatment Time 30 Total Treatment Time 30 Goals: Physical Therapy Ortho Goals: MOBILITY: Patient will be able to ambulate for 1 hour in community without difficulty in 8 weeks. MOBILITY: Patient will be able to ambulate on uneven surfaces without difficulty in 10 weeks. MOBILITY: Patient will be able to ascend/descend stairs without difficulty in 8 weeks. IMPAIRMENT: Patient will report pain <3/10 during prolonged standing, walking and stair negotiation in 10 weeks IMPAIRMENT: Improve gross MMT of the Right Ankle to 4+/5 in 10 weeks IMPAIRMENT: Improve AROM of Right Ankle DF and Eversion to at least 8 degrees in 8 weeks. IMPAIRMENT: Improve AROM of Right Ankle Inversion to at least 25 degrees in 8 weeks. OTHER: Patient will increase FOTO score from 16 to at least 55 to show MDC/MCII and expected functional outcome in 10 weeks. OTHER: Patient will be able to properly demonstrate independence with HEP in 1 week. Patient Education: Quality of movement with patient demonstrated understanding. Post-Treatment Pain Scale: 3 Assessment: Patient had an expected response to treatment. Skilled Intervention demonstrated by modifications of treatment per exercise log including increased intensity and safety interventions per exercise log. Progress towards goals as expected. Plan for Next Visit: Treatment Visit with focus on stretches. 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 documented as of this encounter (statuses as of 03/24/2022) [facility]01-25-2006 History of Past illness Narrative* Problem Noted Date Resolved Date 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 documented as of this encounter (statuses as of 06/09/2022) [facility]01-25-2006 History of Past illness Narrative* Problem Noted Date Resolved Date 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 documented as of this encounter (statuses as of 08/21/2022) [facility]01-25-2006 History of Past illness Narrative* Problem Noted Date Diagnosed Date Resolved Date 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 09/30/20052013 documented as of this encounter (statuses as of 07/12/2023) [facility] note* Diagnosis Achilles tendon injury, right, initial encounter- Primary documented in this encounter [facility] note* Diagnosis Achilles tendon injury, right, initial encounter- Primary documented in this encounter [facility] note* Diagnosis Achilles tendon injury, right, initial encounter- Primary documented in this encounter [facility] note* Diagnosis Achilles tendon injury, right, initial encounter- Primary documented in this encounter [facility] note* Diagnosis Achilles tendon injury, right, initial encounter- Primary documented in this encounter [facility] note* Diagnosis Achilles tendon injury, right, initial encounter- Primary documented in this encounter [facility] note* Diagnosis Achilles tendon injury, right, initial encounter- Primary documented in this encounter [facility] note* Diagnosis Achilles tendon injury, right, initial encounter- Primary documented in this encounter [facility] note* Diagnosis Achilles tendon injury, right, initial encounter- Primary documented in this encounter [facility] note* Diagnosis Achilles tendon injury, right, initial encounter- Primary documented in this encounter [facility] note* Diagnosis Achilles tendon injury, right, initial encounter- Primary documented in this encounter [facility] note* Diagnosis Achilles tendon injury, right, initial encounter- Primary documented in this encounter [facility] note* Diagnosis Achilles tendon injury, right, initial encounter- Primary documented in this encounter [facility] note* Diagnosis Achilles tendon injury, right, initial encounter- Primary [facility]* Diagnosis Achilles tendon injury, right, initial encounter- Primary documented [facility] this [facility]* Diagnosis Achilles tendon injury, right, initial encounter- Primary documented in this encounter [facility] note* Diagnosis Back pain, unspecified back location, unspecified back pain laterality, unspecified chronicity- Primary [facility]* Diagnosis Achilles tendon injury, right, initial encounter- Primary documented in this encounter [facility] note* Diagnosis Achilles tendon injury, right, initial encounter- Primary documented in this encounter [facility] note* Diagnosis Achilles tendon injury, right, initial encounter- Primary documented in this encounter [facility] note* Diagnosis Achilles tendon injury, right, initial encounter- Primary documented in this encounter [facility] note* Diagnosis Back pain, unspecified back location, unspecified back pain laterality, unspecified chronicity documented in this encounter [facility] note* Diagnosis Acute right-sided low back pain with sciatica, sciatica laterality unspecified- Primary documented in this encounter [facility] note* Diagnosis Acute bilateral low back pain with sciatica, sciatica laterality unspecified- Primary documented in this encounter [facility] note* Diagnosis Acute right-sided low back pain with sciatica, sciatica laterality unspecified- Primary documented in this encounter [facility] note* Diagnosis Acute bilateral low back pain with sciatica, sciatica laterality unspecified- Primary documented in this encounter [facility] note* Diagnosis Acute right-sided low back pain with sciatica, sciatica laterality unspecified- Primary documented in this encounter [facility] note* Diagnosis Acute right-sided low back pain with sciatica, sciatica laterality unspecified- Primary documented in this encounter [facility] note* Diagnosis Encounter for gynecological examination with abnormal finding- Primary Routine gynecological examination Vagina itching Pruritus of genital organs Intertrigo Other specified erythematous condition Urinary incontinence without sensory awareness Incontinence without sensory awareness Encounter for screening mammogram for breast cancer Cystocele, midline documented in this encounter [facility] note* Diagnosis Laceration of left hand without foreign body, initial encounter- Primary documented in this encounter [facility] [employer] Phone: evaluation note* Diagnosis Lumbar spondylosis- Primary Lumbosacral spondylosis without myelopathy [facility] Diagnosis Numbness- Primary Disturbance of skin sensation [facility] Diagnosis DDD (degenerative disc disease), cervical- Primary Degeneration of cervical intervertebral disc Numbness Disturbance of skin sensation Radiculopathy, unspecified spinal region DDD (degenerative disc disease), lumbosacral Degeneration of lumbar or lumbosacral intervertebral disc Back pain, unspecified back location, unspecified back pain laterality, unspecified chronicity [facility]* Diagnosis S/P spinal fusion- Primary Arthrodesis status Degeneration of intervertebral disc of lumbosacral region Seasonal allergies Allergic rhinitis, cause unspecified Depression, major, in remission ([facility]) Back pain with history of spinal surgery documented in this encounter [facility] Work Phone: Evaluation note* Diagnosis Left hip pain Pain in joint, pelvic region and thigh Left leg pain Pain in limb [facility] Diagnosis History of colonic diverticulitis- Primary Personal history of other diseases of digestive system [facility] Patient is here today for 3 mo follow up * Patient reports that she is doing ok * Patient is not back to work yet after her Achilles Surgery, goes back to see him the yarn sizer on 06/02 * She was unfortunately fired from her job because her medical leave lasted for than 12 weeks. * Patient is ding formal Pt for her ankle. Still does not have mobility yet. * She is having stress incontinence, worse with laughing, sneezing. Has olamide going on for years and she is tired of it. [facility] Work Phone: History of Present illness Narrative* Patient is here today for 6 week follow up * Patient has completed 7 or 8 therapy sessions with NO improvement and worsening of her back pain. * Patient cannot even stand and do her dishes or house chores. * If she sits or stands for too long both of her legs go numb, starts in her pelvic/crotch area then will radiate into the back of her thighs. Patient is having occasionally urinary incontinence but she does have urinary issues which has not progressed or changed with this back pain. * Patient has segundo lower extremity weakness [facility] Work Phone: History of Present illness Narrative* Patient is here today for 3 mo follow up * Patient was scheduled to see Dr Stevens but her appt was rescheduled 3 x. * She she went to see Dr Aviles and she was recommended to see Pain Management and try injections. * She was referred to pain management up in [place], was started on Cymbalta 20mg po bid. 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 * ALso ordered a CT myelogram. * Pain did not want her to take gabapentin, wanted her to just ry the Cymbalta. * They are working on trying to get the injections approved. * She would like to color card maker her leave time off work. * She was told to file for prison disability. * She is still in a lot of pain and cannot sit comfortably and can weller walk. * She has now been off work for nearly a year from her leg surgery and now this back issue. [facility] Work Phone: History of Present illness Narrative* Tammi Correa, a 46 year old female, arrives to outpatient PT s/p spinal fusion with hx of low back pain. Pt presents with the following impairments: low back pain, L incisional pain, deficits in AROMof lumbar region, deficits in L LE light touch sensation, . These impairments contribute to difficulty in activity limitations and participation restrictions including . The pt s signs and symptomsare consistent with likely . The pt will benefit from skilled PT services 2x/week for 8 weeks to address the above stated impairments and functional limitations to maximize participation and ease in household, social, and work related activities. The pt has a prognosis when considering positive factors including with barriers such as . The pt verbalized understanding and agreement to goals and POC. Thank you for this referral and please call [phone] with any questions or concerns. * Clinical Presentation: Stable and/or uncomplicated characteristics. * Level of Complexity: low * Problem List: activity limitations, ADLs/IADLs/self care skills, balance, decreased knowledge of HEP, fall risk, flexibility, gait/locomotion, pain, participation restrictions, posture, range of motion/joint mobility and strength. [facility] Work Phone: History of Present illness Narrative* Tammi Correa, a 46 year old female, arrives to outpatient PT s/p spinal fusion with hx of low back pain. Pt presents with the following impairments: low back pain, L incisional pain, deficits in AROMof lumbar region, deficits in L LE light touch sensation, deficits in B hip, knee, and core musculature strength, and functional mobility per ISIAH score. These impairments contribute to difficulty in activity limitations and participation restrictions including sitting, standing, ambulation, job duties, household management, transfers, and sleeping. The pt will benefit from skilled PT services 2x/week for 4 weeks to address the above stated impairments and functional limitations to maximize participation and ease in household, social, and work related activities. The pt has a fair prognosis when considering positive factors including age with barriers such as chronicity of symptoms. PHQ-9 resources provided and discussed with patient verbalizing understanding. Patient unable to participatein aquatic therapy d/t incontinence. Education regarding cauda equina symptoms as well as fair tolerance with TrA activation and basic kegals. Increased sensitivity of L incision in lumbar region. Pain rated 9/10 at end of session. The pt verbalized understanding and agreement to goals and POC. Thank you for this referral and please call [phone] with any questions or concerns. * Clinical Presentation: Stable and/or uncomplicated characteristics. * Level of Complexity: low * Problem List: activity limitations, ADLs/IADLs/self care skills, balance, decreased knowledge of HEP, fall risk, flexibility, gait/locomotion, pain, participation restrictions, posture, range of motion/joint mobility and strength. [facility] Work Phone: History of Present illness Narrative* Patient identified by name and * Patient demo's moderate difficulty with exercises this date. Patient demo's difficulty in supine and seated requiring standing rest breaks during exercises. Patient demo's numbness and tingling down LLE during seated exercises. Patient tolerates gastroc stretching with compensations d/t increased pain down LLE. [facility] Work Phone: Hisawfd of Present illness Narrative* Patient identified by name and * Patient demo's moderate difficulty with exercises this date. Patient demo's difficulty in supine and seated requiring standing rest breaks during exercises. Patient demo's numbness and tingling down LLE during seated exercises. Patient tolerates gastroc stretching with compensations d/t increased pain down LLE. [facility] Work Phone: History of Present illness NarrativePoor tolerance to exercise. Did introduce standing core exercises this date. Increased numbness of L LE in standing requires constant weight shifts onto R LE to avoid numbness down entire L LE. Pain in supine position and intermittently when on R s/l. Increased restriction of L IT band, glutes, andlumbar paraspinals. Pain at 8/10 at end of session. [facility] Work Phone: History of Present illness Narrative* Patient is here today for 3 mo follow up * Patient reports she has not had any improvement in her pain with the increase in the Cymbalta or Lyrica. * She has an MRI with contrast scheduled tomorrow with Dr Aviles. * She reports some numbness in her right arm. * She is right handed. * She thought it was from leaning on her right side but now always related it can just happen. * Writing or doing dishes can make it worse. * She feels like it falls asleep. [facility] Work Phone: History of Present illness NarrativePatient was identified by name and date. Patient very guarded and demo'd antalgic gait pattern with decreased speed, step length and stance time on L LE. IASTM/STM and cupping completed to reduce soft tissue restriction at LB and L hip musculature. She had a new script to add cervical to thiscurrent POC. (Physical therapist consulted and given script) Noted through out session completed str etches and exercises with very slow speed and decreased ROM. She had difficulty transitioning off plinth. Checked pelvic symmetry and no intervention needed. No change in L leg radicular Sxs after Tx. [facility] Work Phone: History of Present illness NarrativePatient identified by name & . Patient wore a mask during treatment d/t Covid-19 precautions. Treatment consisted of ther ex's for LE strengthening with focus of treatment on core strengthening. Patient has to stop several times during treatment due to her vaginal area was going numb and shehad to readjust her standing or sitting position. Was painful with all ex's today. No improvement in pain post treatment. [facility] Work Phone: History of Present illness Narrative* Patient identified by name and * Patient appropriately challenged. Patient demo's intermittent position changes during session d/t increased N/T down LLE and pelvis. Patient tolerates thoracic extension with no increased exacerbation of symptoms. Patient demo's slow controlled motions. [facility] [place] Work Phone: History of Present illness Narrative* Patient identified by name and * Patient appropriately challenged. Patient demo's intermittent position changes during session d/t increased N/T down LLE and pelvis. Patient tolerates thoracic extension with no increased exacerbation of symptoms. Patient demo's slow controlled motions. [facility] Work Phone: History of Present illness Narrative* Patient identified by name and * Patient appropriately challenged. Patient demo's intermittent position changes during session d/t increased N/T down LLE and pelvis. Patient tolerates thoracic extension with no increased exacerbation of symptoms. Patient demo's slow controlled motions. [facility] Work Phone: History of Present illness NarrativeSandra Correa, who presents for re-evaluation following arrives to outpatient PT c/o cervical pain with radicular symptoms. Pt presents with the following impairments: continued low back pain and leg numbness, cervical pain, cervical AROM deficits, cervical and B GH and periscapular musculature strength, restriction of surrounding R GH joint musculature, and deficits in cervical functional mobility per NDI score. These impairments contribute to difficulty in activity limitations and participation restrictions including lifting and reaching. The pt will benefit from skilled PT services for remainder of this POC to address above impairments in addition to current POC of lumbar impairments. Thept has a fair prognosis when considering positive factors including age with barriers such as chronicity of symptoms as well as current comorbidities of the lumbar spine. Education regarding current HEP and completion of stretches and strengthening within painfree ROM. Updated goals and discussed POC. Does demonstrate irritation of ulnar nerve with testing. No exacerbation of pain throughout session. The pt verbalized understanding and agreement to goals and POC. Thank you for this referral andplease call [phone] with any questions or concerns. [facility] Work Phone: History of Present illness Narrative* Patient identified by name and * Patient tolerates incorporation of cervical exercises with mild difficulty. Patient still demo's significant pain in LLE and requires intermittent position changes during session d/t increased pain and N/T in LLE. Patient demo's no exacerbation of symptoms in cervical stretching. [facility] Work [facility]: History of Present illness Narrative* Patient identified by name and * Patient tolerates incorporation of cervical exercises with mild difficulty. Patient still demo's significant pain in LLE and requires intermittent position changes during session d/t increased pain and N/T in LLE. Patient demo's no exacerbation of symptoms in cervical stretching. [facility] Work Phone: History of Present illness Narrative* Patient is here today for 2 mo follow up * Patient had a recent second opinion looking at her back. * She is continued to have back pain issues post surgery. * Dr Aviles asked her if she had been check for MS however she has never had any demyelinating lesionson her previous mris. * Patient is seeing Dr Flower, pain management, * Is going to try tramadol and see about getting an injection. * Dr Aviles also wondered if it was causing from her hip, she saw Orthopedic who said her hip looked ok. [facility] Work Phone: History of Present illness Narrative* Fair tolerance with TE this date. Verbal cues needed with form and posture. Pt. continues with tightness with low back and with right UT. Poor tolerance with standing rows this date, pt. fatigued quickly and felt LBP. Pt. declined STM this date d/t time. * Response to treatment: no change in pain. * Patient was able to complete today's treatment with some difficulty. [facility] Work Phone: History of Present illness Narrative* Fair tolerance with TE this date. Verbal cues needed with form and posture. Pt. continues with tightness with low back and with right UT. Poor tolerance with standing rows this date, pt. fatigued quickly and felt LBP. Pt. declined STM this date d/t time. * Response to treatment: no change in pain. * Patient was able to complete today's treatment with some difficulty. [facility] Work Phone: Hisehpk of Present illness NarrativePatient identified by name and date of . Patient 10 mins late for appointment therefore treatment time reduced. She had several questions throughout treatment. She demonstrated slow movements with t/fs due to pain. She presented with palpable tension in QL, gluts and SCM. Instructed in use of tennis ball for HEP she demonstrated good understanding.[facility] Work Phone: history of Present illness NarrativePatient identified by name and date of . Performed lumbar strengthening and STW of lumbar areaon land today secondary to pool being down. Focused on STW and IASTM of L QL, paraspinals and hip musculature to allow for reduction of tension and tissue restriction. Patient very stiff and painful with transition from supine to seated and then to standing. Increased antalgic gait after session.[facility] Work Phone: history of Present illness NarrativePatient identified by name and date of . Patient presented with slow movements with t/f's she demonstrated agnatic gait with ambulation into and out of clinic. She required transitions between sitting and standing to decrease with Sx. She presented with palpable tension in low back on L side with STW.[facility] Work Phone: History of Present illness NarrativePatient identified by name and date of . Patient 10 mins late for appointment therefore treatment time reduced. She had several questions throughout treatment. She demonstrated slow movements with t/fs due to pain. She presented with palpable tension in QL, gluts and SCM. Instructed in use of tennis ball for HEP she demonstrated good understanding. [facility] Work Phone: History of Present illness Narrative* Tammi Correa is progressing fairly through their POC addressing cervical pain and low back pain. The pt demonstrates and verbalizes improvements in R GH joint and cervical AROM and B GH joint and periscapular musculature strength. This contributes to greater ease with use of R UE for overhead lifting and reaching however pt is still experiencing difficulty with low back pain radiating into LE as well as significant muscle weakness of B LE L>R. Patient has attended 18 therapy visits total since initial evaluation including ther ex, manual therapy, aquatic therapy, and HEP interventions. Patient is meeting or partially met goals regarding cervical impairments but continues to have significant pain of low back and weakness of B hip, knee, and ankle. Patient demonstrating minimal improvement or comparable measurements of low back since initial evaluation. Aquatic therapy did help in moment but pain returned upon weightbearing. Discussion of following up with providers prior to continuat ion with PT skill services with patient verbalizing agreement. Did provide aquatic therapy exercises for at home as pain improves in water. * Pt is being placed on hold for 30 days to attempt performing their home exercise program independently. Pt instructed to contact with any problems, questions, or adjustments. This will serve as the patient s discharge if they elect not to resume skilled PT within 30 days. Pt verbalized understanding and agreement to goals and POC. Thank you for this referral and please call [phone] with any questions or concerns. [facility] Work Phone: History of Present illness NarrativePatient identified by name and date of . Performed lumbar strengthening and STW of lumbar areaon land today secondary to pool being down. Focused on STW and IASTM of L QL, paraspinals and hip musculature to allow for reduction of tension and tissue restriction. Patient very stiff and painful with transition from supine to seated and then to standing. Increased antalgic gait after session. [facility] Work Phone: Hospital Discharge instructions* Attachments The following attachments cannot be sent through Care Everywhere. * Hand Laceration: Stitches (Setswana) [facility]: Instructions* Name Dates Details Instructions not documented [facility] Work Phone: Reason for referral (narrative)* Diagnostic Procedure Only (Routine) - Pending Review Specialty Diagnoses / Procedures Referred By Ajit sandy Referred To Contact [facility] Diagnoses Encounter for screening mammogram for breast cancer Procedures KALIE SCREENING SCREENING MAMMOGRAPHY BI 2-VIEW BREAST INC Page Haque APRN.CNP [address] [place] [address] [facility] [address] [place] [address] Referral ID Status Reason Start Date Expiration Date Visits Requested Visits Authorized [id number] Pending Review Auto-Generat ed Referral 03/24/2022 04/23/2023 [facility] Consultation (Routine) - Authorized Specialty Diagnoses / Procedures Referred By Ajit sandy Referred To Contact Neurosurgery Diagnoses S/P spinal fusion Dang Gutierrez, [address] [facility] [place] [address] Referral ID Status Reason Start Date Expiration Date Visits Requested Visits Authorized [id number] Authorized Specialty Services Required 02/04/2023 08/03/2023 1 1 [facility] Work Phone: Reason for visit Narrative* Initial Evaluation . S/P Fusion; Back Pain. * Referred by: Timoteo Aviles MD [facility] Work Phone: Reason for visit Narrative* Diagnostic Procedure Only (Routine) - Closed Specialty Diagnoses / Procedures Referred By Ajit sandy Referred To Contact [facility] Diagnoses Spondylosis without myelopathy or radiculopathy, lumbar region Spinal stenosis, cervical region MRI Cervical incl. oblique sagittals to evaluate foramina M47.816, M48.02 auth #[id number] outside order scanned and placed in syngo Procedures MRI SPINAL CANAL CERVICAL W/O CONTRAST MATRL MRI [address] [place] [address] [facility] [address] [place] [address] Referral ID Status Reason Start Date Expiration Date Visits Re quested Visits Authorized [id number] Closed 07/28/2022 08/26/2022 1 1 [facility] Summary Purpose Family History No Family History Records Found Father Name Dates Details Family history of cardiac di sorder(V17.49, Z82.49) Status:Active Family history of myocardial infarction(V17.3, Z82.49) Status:Active Family history of lung disea se(V19.8, Z83.6) Status:Active Family history of (7 99.9, R99) Status:Active Unknown Family Member Name Dates Details Family history of cardiac di sorder: Father(V17.49, Z82.49) Status:Active Family history of myocardial infarction: Father(V17.3, Z82.49) Status:Active Family history of lung disea se: Father(V19.8, Z83.6) Status:Active : Father Status:Active Unknown Family Member Name Dates Details Family history of cardiac di sorder: Father(V17.49, Z82.49) Status:Active Family history of myocardial infarction: Father(V17.3, Z82.49) Status:Active Family history of lung disea se: Father(V19.8, Z83.6) Status:Active : Father Status:Active Unknown Family Member Name Dates Details Family history of cardiac di sorder: Father(V17.49, Z82.49) Status:Active Family history of myocardial infarction: Father(V17.3, Z82.49) Status:Active Family history of lung disea se: Father(V19.8, Z83.6) Status:Active : Father Status:Active Unknown Family Member Name Dates Details Family history of cardiac di sorder: Father(V17.49, Z82.49) Status:Active Family history of myocardial infarction: Father(V17.3, Z82.49) Status:Active Family history of lung disea se: Father(V19.8, Z83.6) Status:Active : Father Status:Active Unknown Family Member Name Dates Details Family history of cardiac di sorder: Father(V17.49, Z82.49) Status:Active Family history of myocardial infarction: Father(V17.3, Z82.49) Status:Active Family history of lung disea se: Father(V19.8, Z83.6) Status:Active : Father Status:Active Unknown Family Member Name Dates Details Family history of cardiac di sorder: Father(V17.49, Z82.49) Status:Active Family history of myocardial infarction: Father(V17.3, Z82.49) Status:Active Family history of lung disea se: Father(V19.8, Z83.6) Status:Active : Father Status:Active Unknown Family Member Name Dates Details Family history of cardiac di sorder: Father(V17.49, Z82.49) Status:Active Family history of myocardial infarction: Father(V17.3, Z82.49) Status:Active Family history of lung disea se: Father(V19.8, Z83.6) Status:Active : Father Status:Active Unknown Family Member Name Dates Details Family history of cardiac di sorder: Father(V17.49, Z82.49) Status:Active Family history of myocardial infarction: Father(V17.3, Z82.49) Status:Active Family history of lung disea se: Father(V19.8, Z83.6) Status:Active : Father Status:Active Unknown Family Member Name Dates Details Family history of cardiac di sorder: Father(V17.49, Z82.49) Status:Active Family history of myocardial infarction: Father(V17.3, Z82.49) Status:Active Family history of lung disea se: Father(V19.8, Z83.6) Status:Active : Father Status:Active Unknown Family Member Name Dates Details Family history of cardiac di sorder: Father(V17.49, Z82.49) Status:Active Family history of myocardial infarction: Father(V17.3, Z82.49) Status:Active Family history of lung disea se: Father(V19.8, Z83.6) Status:Active : Father Status:Active Unknown Family Member Name Dates Details Family history of cardiac di sorder: Father(V17.49, Z82.49) Status:Active Family history of myocardial infarction: Father(V17.3, Z82.49) Status:Active Family history of lung disea se: Father(V19.8, Z83.6) Status:Active : Father Status:Active Unknown Family Member Name Dates Details Family history of cardiac di sorder: Father(V17.49, Z82.49) Status:Active Family history of myocardial infarction: Father(V17.3, Z82.49) Status:Active Family history of lung disea se: Father(V19.8, Z83.6) Status:Active : Father Status:Active Unknown Family Member Name Dates Details Family history of cardiac di sorder: Father(V17.49, Z82.49) Status:Active Family history of myocardial infarction: Father(V17.3, Z82.49) Status:Active Family history of lung disea se: Father(V19.8, Z83.6) Status:Active : Father Status:Active Unknown Family Member Name Dates Details Family history of cardiac di sorder: Father(V17.49, Z82.49) Status:Active Family history of myocardial infarction: Father(V17.3, Z82.49) Status:Active Family history of lung disea se: Father(V19.8, Z83.6) Status:Active : Father Status:Active Unknown Family Member Name Dates Details Family history of cardiac di sorder: Father(V17.49, Z82.49) Status:Active Family history of myocardial infarction: Father(V17.3, Z82.49) Status:Active Family history of lung disea se: Father(V19.8, Z83.6) Status:Active : Father Status:Active Unknown Family Member Name Dates Details Family history of cardiac di sorder: Father(V17.49, Z82.49) Status:Active Family history of myocardial infarction: Father(V17.3, Z82.49) Status:Active Family history of lung disea se: Father(V19.8, Z83.6) Status:Active : Father Status:Active Unknown Family Member Name Dates Details Family history of cardiac di sorder: Father(V17.49, Z82.49) Status:Active Family history of myocardial infarction: Father(V17.3, Z82.49) Status:Active Family history of lung disea se: Father(V19.8, Z83.6) Status:Active : Father Status:Active Unknown Family Member Name Dates Details Family history of cardiac di sorder: Father(V17.49, Z82.49) Status:Active Family history of myocardial infarction: Father(V17.3, Z82.49) Status:Active Family history of lung disea se: Father(V19.8, Z83.6) Status:Active : Father Status:Active Unknown Family Member Name Dates Details Family history of cardiac di sorder: Father(V17.49, Z82.49) Status:Active Family history of myocardial infarction: Father(V17.3, Z82.49) Status:Active Family history of lung disea se: Father(V19.8, Z83.6) Status:Active : Father Status:Active Unknown Family Member Name Dates Details Family history of cardiac di sorder: Father(V17.49, Z82.49) Status:Active Family history of myocardial infarction: Father(V17.3, Z82.49) Status:Active Family history of lung disea se: Father(V19.8, Z83.6) Status:Active : Father Status:Active Unknown Family Member Name Dates Details Family history of cardiac di sorder: Father(V17.49, Z82.49) Status:Active Family history of myocardial infarction: Father(V17.3, Z82.49) Status:Active Family history of lung disea se: Father(V19.8, Z83.6) Status:Active : Father Status:Active Unknown Family Member Name Dates Details Family history of cardiac di sorder: Father(V17.49, Z82.49) Status:Active Family history of myocardial infarction: Father(V17.3, Z82.49) Status:Active Family history of lung disea se: Father(V19.8, Z83.6) Status:Active : Father Status:Active Unknown Family Member Name Dates Details Family history of cardiac di sorder: Father(V17.49, Z82.49) Status:Active Family history of myocardial infarction: Father(V17.3, Z82.49) Status:Active Family history of lung disea se: Father(V19.8, Z83.6) Status:Active : Father Status:Active Unknown Family Member Name Dates Details Family history of cardiac di sorder: Father(V17.49, Z82.49) Status:Active Family history of myocardial infarction: Father(V17.3, Z82.49) Status:Active Family history of lung disea se: Father(V19.8, Z83.6) Status:Active : Father Status:Active Unknown Family Member Name Dates Details : Father Status:Active Family history of lung disea se: Father(V19.8, Z83.6) Status:Active Family history of myocardial infarction: Father(V17.3, Z82.49) Status:Active Family history of cardiac di sorder: Father(V17.49, Z82.49) Status:Active Unknown Family Member Name Dates Details Family history of cardiac di sorder: Father(V17.49, Z82.49) Status:Active Family history of myocardial infarction: Father(V17.3, Z82.49) Status:Active Family history of lung disea se: Father(V19.8, Z83.6) Status:Active : Father Status:Active Unknown Family Member Name Dates Details Family history of cardiac di sorder: Father(V17.49, Z82.49) Status:Active Family history of myocardial infarction: Father(V17.3, Z82.49) Status:Active Family history of lung disea se: Father(V19.8, Z83.6) Status:Active : Father Status:Active Unknown Family Member Name Dates Details Family history of cardiac di sorder: Father(V17.49, Z82.49) Status:Active Family history of myocardial infarction: Father(V17.3, Z82.49) Status:Active Family history of lung disea se: Father(V19.8, Z83.6) Status:Active : Father Status:Active Unknown Family Member Name Dates Details Family history of cardiac di sorder: Father(V17.49, Z82.49) Status:Active Family history of myocardial infarction: Father(V17.3, Z82.49) Status:Active Family history of lung disea se: Father(V19.8, Z83.6) Status:Active : Father Status:Active Unknown Family Member Name Dates Details Family history of cardiac di sorder: Father(V17.49, Z82.49) Status:Active Family history of myocardial infarction: Father(V17.3, Z82.49) Status:Active Family history of lung disea se: Father(V19.8, Z83.6) Status:Active : Father Status:Active Unknown Family Member Name Dates Details Family history of cardiac di sorder: Father(V17.49, Z82.49) Status:Active Family history of myocardial infarction: Father(V17.3, Z82.49) Status:Active Family history of lung disea se: Father(V19.8, Z83.6) Status:Active : Father Status:Active Unknown Family Member Name Dates Details Family history of cardiac di sorder: Father(V17.49, Z82.49) Status:Active Family history of myocardial infarction: Father(V17.3, Z82.49) Status:Active Family history of lung disea se: Father(V19.8, Z83.6) Status:Active : Father Status:Active Unknown Family Member Name Dates Details Family history of cardiac di sorder: Father(V17.49, Z82.49) Status:Active Family history of myocardial infarction: Father(V17.3, Z82.49) Status:Active Family history of lung disea se: Father(V19.8, Z83.6) Status:Active : Father Status:Active Unknown Family Member Name Dates Details Family history of cardiac di sorder: Father(V17.49, Z82.49) Status:Active Family history of myocardial infarction: Father(V17.3, Z82.49) Status:Active Family history of lung disea se: Father(V19.8, Z83.6) Status:Active : Father Status:Active Unknown Family Member Name Dates Details Family history of cardiac di sorder: Father(V17.49, Z82.49) Status:Active Family history of myocardial infarction: Father(V17.3, Z82.49) Status:Active Family history of lung disea se: Father(V19.8, Z83.6) Status:Active : Father Status:Active Unknown Family Member Name Dates Details Family history of cardiac di sorder: Father(V17.49, Z82.49) Status:Active Family history of myocardial infarction: Father(V17.3, Z82.49) Status:Active Family history of lung disea se: Father(V19.8, Z83.6) Status:Active : Father Status:Active Unknown Family Member Name Dates Details Family history of cardiac di sorder: Father(V17.49, Z82.49) Status:Active Family history of myocardial infarction: Father(V17.3, Z82.49) Status:Active Family history of lung disea se: Father(V19.8, Z83.6) Status:Active : Father Status:Active Unknown Family Member Name Dates Details Family history of cardiac di sorder: Father(V17.49, Z82.49) Status:Active Family history of myocardial infarction: Father(V17.3, Z82.49) Status:Active Family history of lung disea se: Father(V19.8, Z83.6) Status:Active : Father Status:Active Unknown Family Member Name Dates Details Family history of cardiac di sorder: Father(V17.49, Z82.49) Status:Active Family history of myocardial infarction: Father(V17.3, Z82.49) Status:Active Family history of lung disea se: Father(V19.8, Z83.6) Status:Active : Father Status:Active Unknown Family Member Name Dates Details Family history of cardiac di sorder: Father(V17.49, Z82.49) Status:Active Family history of myocardial infarction: Father(V17.3, Z82.49) Status:Active Family history of lung disea se: Father(V19.8, Z83.6) Status:Active : Father Status:Active Unknown Family Member Name Dates Details Family history of cardiac di sorder: Father(V17.49, Z82.49) Status:Active Family history of myocardial infarction: Father(V17.3, Z82.49) Status:Active Family history of lung disea se: Father(V19.8, Z83.6) Status:Active : Father Status:Active Unknown Family Member Name Dates Details : Father Status:Active Family history of lung disea se: Father(V19.8, Z83.6) Status:Active Family history of myocardial infarction: Father(V17.3, Z82.49) Status:Active Family history of cardiac di sorder: Father(V17.49, Z82.49) Status:Active Unknown Family Member Name Dates Details Family history of cardiac di sorder: Father(V17.49, Z82.49) Status:Active Family history of myocardial infarction: Father(V17.3, Z82.49) Status:Active Family history of lung disea se: Father(V19.8, Z83.6) Status:Active : Father Status:Active Unknown Family Member Name Dates Details Family history of cardiac di sorder: Father(V17.49, Z82.49) Status:Active Family history of myocardial infarction: Father(V17.3, Z82.49) Status:Active Family history of lung disea se: Father(V19.8, Z83.6) Status:Active : Father Status:Active Advance Directives No Advanced Directives Records FoundDocuments on File Type Date Recorded Patient Product Support Analyst Expl anation Advance Directives and Livin g Will 02/27/2019 8:41 AM Documents on File Type Date Recorded Patient Product Support Analyst Expl anation Advance Directives and Livin g Will 10/31/2019 10:01 AM Documents on File Type Date Recorded Patient Product Support Analyst Expl anation Advance Directives and Livin g Will 10/31/2019 10:01 AM Documents on File Type Date Recorded Patient Product Support Analyst Expl anation Advance Directives and Livin g Will 12/02/2020 12:00 AM Documents on File Type Date Recorded Patient Product Support Analyst Expl anation Advance Directives and Livin g Will 12/02/2020 12:00 AM Documents on File Type Date Recorded Patient Product Support Analyst Expl anation Advance Directive(s) 11/26/2020 8:43 AM Documents on File Type Date Recorded Patient Product Support Analyst Expl anation Advance Directive(s) 11/26/2020 8:43 AM Latest Code Status on File Code Status Date Activated Date Inactivated Comments Full Code 05/27/2023 6:21 AM History of Present Illness * Timoteo Arevalo MD - 02/27/2019 9:02 AM EDT Subjective: Patient ID: Tammi Correa is a 43 y.o. female. HPI: Patient is a 43-year-old female was walking her dog when the dog spider rabbit the cough and twisted her collar around and the patient had her hand twisted and pulled. This was her left hand. This was approximately 2-1/2 to 3 weeks ago. It is a little better but not significantly so. Review of Systems: Review of Systems Constitutional: Negative for activity change, appetite change, chills, fatigue and fever. HENT: Negative for congestion and trouble swallowing. Respiratory: Negative for chest tightness and shortness of breath. Cardiovascular: Negative for chest pain and palpitations. Gastrointestinal: Negative for constipation and diarrhea. Genitourinary: Negative for difficulty urinating and hematuria. Musculoskeletal: Negative for arthralgias, back pain, gait problem, joint swelling, myalgias, neck pain and neck stiffness. Skin: Negative for color change. Neurological: Negative for light-headedness, numbness and headaches. Hematological: Negative for adenopathy. Does not bruise/bleed easily. Psychiatric/Behavioral: Negative for confusion. Patient Active Problem List Diagnosis SNOMED CT(R) Left wrist pain PAIN OF LEFT WRIST Objective: Physical Exam The patient is a 43-year-old female in no acute distress. I reviewed medications, allergies, and history. I reviewed previous record and x-rays taken today. I reviewed OARRS and NARxCHECK report. PHYSICAL EXAMINATION General: She is well-developed, well-nourished, no acute distress, alert and oriented x3. Cranial nerves 2 through 12 intact. Gait: Normal. Psychiatric: Patient's mood, affect, and behavior are appropriate for age, diagnosis, and office visit. Head: Normocephalic. Neck: Supple with good range of motion. Eyes: Extraocular exam within normal limits. Skin: Warm, clear, and dry without trophic changes noted. Vascular: Pulses 2+ and symmetrical in both upper extremities. Neurologic: Patient denies numbness and tingling in either upper extremity. Extremities: Patient has a full range of motion of her left wrist and hand. There is no significantsoft tissue swelling present. The veins are visible as are the tendons. She is not really tender over the tendinous aspects or even in the dorsal interspaces. Her pain is with rotation and dorsal flexion of the fingers and wrist. It is diffusely over the dorsal and dorsal radial aspect of the wrist. She has a negative Thi test. Negative Tinel's and Phalen test. PLAN At this point is to suggest oral anti-inflammatories, the use of a cock-up brace, warm soaks, and rest. We will plan to see her back in approximately 6 weeks. Imaging Studies: No results found. Assessment: SNOMED CT(R) 1. Left wrist pain PAIN OF LEFT WRIST Plan: 1. No orders of the defined types were placed in this encounter. No follow-ups on file. documented in this encounter* Ivett Willis, PT - 11/15/2019 7:45 AM EDT [facility] Evaluation Today's Date 11/15/2019 Patient Name: Tammi Correa Date of : 1975 Case Name: calcaneal spur, achilles tendinitis right Functional Diagnosis: 1. Calcaneal spur of right foot 2. Tendonitis, Achilles, right Clinical Information: Subjective Referring Diagnosis: right calcaneal spur and achilles tedinits History of Present Illness Date of Onset: 11/07/2018 Chief Complaint/ Mechanism of Injury: Patient has 4 year history of heel spur and had injection 4 years ago. In past year that has become worse. Is having difficulty putting shoe on. Pain is there all day. Pain with laying on right side. Does cause hip and back pain d/t walking with limp. Has triedice without benefit. Has pain in heel, lateral foot, lateral ankle. Has tried cushions to put in shoe that did not help. Patient works in [employer] at [employer] and is on feet most of the day on cement floors. Does work 10-12 hours at times. Previous Treatment for this condition: Injections Previous Imaging: X-ray Status: worsening Pain Scale: Average Pain: 8/10 Pain at highest: 10/10 Aggravating factors: standing, walking, donning shoe, driving Easing factors: getting off feet Sleep Assessment Sleep disturbance: Sleep Disturbance Red Flags: None Barriers to Care: None Fall risk screening Fallen 2 or more times in the last 12 months: No Injured as a result of a fall in the last 12 months: No Personal Goals: Patient would like to be pain free. Social History Scientology, social, or cultural considerations to be made aware of before starting treatment: No Ankle/Foot Right Ankle/Foot Range of Motion: Inversion Active: 20 Eversion Active: 5 Muscle Strength: DorsiFlexion: 5 Plantar Flexion: 4+ Inversion: 4 Eversion: 4 Left Ankle/Foot Left Ankle/Foot WFL Muscle Strength: WFL PALPATION: Tenderness right lateral plantar surface of foot and heel, right posterior heel and along achilles tendon FOTO = 31 GAIT: Antalgic with minimal heel to toe on right and decreased knee flexion on right Treatments: Physical Therapy Exercise Log - 11/15/19 0754 OTHER Notes right heel spur and achilles tendinitis. Vitals 7:45-8:25 Additional Exercises Add more exercises? Yes Modalities Parameters US right lateral foot heel 20% 1.0w/cm2 8 minutes PT Treatment Times Modalities Total Time 8 Direct Treatment Time 8 Treatment Plan: Frequency of Visits: three times per week Duration: 4 weeks Interventions: Therapeutic Exercise, Neuromuscular Re-Education, Manual Therapy, Gait Training, Hot/Cold Pack, Ultrasound and Vasopneumatic Rehab Potential: good Goals: Physical Therapy Ortho Goals: MOBILITY: Patient will be able to ambulate on even surfaces without difficulty in 4 weeks. IMPAIRMENT: Improve AROM of Right Ankle Eversion from 5 degrees to 10 degrees in 4 weeks. OTHER: Patient will increase FOTO score from 31 to at least 54 to show MDC/MCII and expected functional outcome in 4 weeks. OTHER: Patient will be able to properly demonstrate independence with HEP in 4 weeks. Patient Education provided: Patient instructed to continue with present HEP of gastroc stretch. Patient verbalizes understanding. Clinical Impression: CPT Code 83671 Low 97689 Moderate 15298 High History 0 1-2 3+ Comorbidities: Hx of heel spur, Personal factors: chronicity or severity of the current condition Examination of body systems (elements of body structures & functions, activity limitations, and/or participation restrictions) 1-2 elements 3+ elements 4+ elements See below clinical impression Clinical Presentation Stable Evolving Unstable As evidenced by reports of fluctuating symptoms over time Decision Making Low (FOTO >/= 69) Moderate (FOTO 34 - 68) High (FOTO </= 33) FOTO score= 31 Pt is a 44 y.o. female who presents to PT services with c/o right foot/heel pain. Upon assessment, pt has been found with the following impairments: decreased ROM, decreased strength, antalgic gait and pain. The documented impairments result in the following functional limitations: functional mobility, walking, stairs, quality of life and performance of work/school related duties. The pt would benefit from skilled PT services focused on the above listed impairments and limitations in order to safely progress pt to their desired level of function. Pt to be discharged from OP PT services if/when goals are met, if they fail to make progress with conservative management in PT, if their level of progress plateaus, or if they do not maintain compliance with attendance or HEP. At this time, it is my clinical judgment that services are medically necessary. Ivett Willis, PT State License, [id number] documented in this encounter* Collin Rutherford, GENERAL STUDIES PROGRAM CHAIR - 11/17/2019 11:30 AM EDT [facility] DAILY TREATMENT NOTE Today's Date 11/17/2019 Patient Name: Tammi Correa Date of : 1975 Current Visit #: 2 Authorized Visits: 9 Case Name: calcaneal spur, achilles tendinitis right History: Pre-Treatment Pain Scale: 5 Symptoms: stabilized Functional Diagnosis: 1. Tendonitis, Achilles, right Clinical Information: Subjective: Pt reports lower than avg pain level coming in today, she has no worked on it all morning Objective Started session with ex's then ended with US Treatments: Physical Therapy Exercise Log - 11/17/19 1122 OTHER Precautions/Contraindications *goes by [facility] Notes right heel spur and achilles tendinitis. Vitals 6153-8201 Therapeutic Exercise (22097) Intervention Ankle 4 way x1 min each Additional Exercises Add more exercises? Yes Modalities Parameters US right lateral foot heel 20% 1.0w/cm2 8 minutes PT Treatment Times Therex Total Time 15 Modalities Total Time 10 Direct Treatment Time 25 Total Treatment Time 32 Goals: Physical Therapy Ortho Goals: MOBILITY: Patient will be able to ambulate on even surfaces without difficulty in 4 weeks. IMPAIRMENT: Improve AROM of Right Ankle Eversion from 5 degrees to 10 degrees in 4 weeks. OTHER: Patient will increase FOTO score from 31 to at least 54 to show MDC/MCII and expected functional outcome in 4 weeks. OTHER: Patient will be able to properly demonstrate independence with HEP in 4 weeks. Patient Education: Verbal HEP with patient verbalized understanding. Post-Treatment Pain Scale: 5 Assessment: Patient had an expected response to treatment. Pt had no change in sx's Skilled Intervention demonstrated by modifications of treatment per exercise log including assessment of patient's response and safety interventions per exercise log. Progress towards goals as expected. Plan for Next Visit: Treatment Visit with focus on progressing as tolerated Collin Rutherford PTA STATE LICENSE, [id number] documented in this encounter* Collin Rutherford PTA - 11/20/2019 7:00 AM EDT [facility] OUTPATIENT REHABILITATION DAILY TREATMENT NOTE Today's Date 11/20/2019 Patient Name: Tammi Correa Date of : 1975 Current Visit #: 3 Authorized Visits: 9 Case Name: calcaneal spur, achilles tendinitis right History: Pre-Treatment Pain Scale: 5 Symptoms: stabilized Functional Diagnosis: 1. Tendonitis, Achilles, right Clinical Information: Subjective: Pt reports increased soreness coming in today, she had a lot of pain after the last session as she went to work Objective Completed STM and ultrasound to decrease pain Treatments: Physical Therapy Exercise Log - 11/20/19 0659 OTHER Precautions/Contraindications *goes by Bella Notes right heel spur and achilles tendinitis. Vitals 700- Therapeutic Exercise (18673) Intervention Ankle 4 way x1 min each Parameters Toe curls Additional Exercises Add more exercises? Yes Modalities Parameters US right lateral foot heel 20% 1.0w/cm2 8 minutes Goals: Physical Therapy Ortho Goals: MOBILITY: Patient will be able to ambulate on even surfaces without difficulty in 4 weeks. IMPAIRMENT: Improve AROM of Right Ankle Eversion from 5 degrees to 10 degrees in 4 weeks. OTHER: Patient will increase FOTO score from 31 to at least 54 to show MDC/MCII and expected functional outcome in 4 weeks. OTHER: Patient will be able to properly demonstrate independence with HEP in 4 weeks. Patient Education: Verbal HEP with patient verbalized understanding. Post-Treatment Pain Scale: 4 Assessment: Patient had an expected response to treatment. Skilled Intervention demonstrated by modifications of treatment per exercise log including assessment of patient's response and modalities as indicated and safety interventions per exercise log. Progress towards goals as expected. Plan for Next Visit: Treatment Visit with focus on controlling pain and increasing ease with ADL's Collin Rutherford PTA STATE LICENSE, [id number] documented in this encounter* Radha Armijo PTA - 11/22/2019 7:45 AM EDT [facility] OUTPATIENT REHABILITATION DAILY TREATMENT NOTE Today's Date 11/22/2019 Patient Name: Tammi Correa Date of : 1975 Current Visit #: 4 Authorized Visits: 9 Case Name: calcaneal spur, achilles tendinitis right History: Pre-Treatment Pain Scale: 3 Symptoms: stabilized Functional Diagnosis: 1. Tendonitis, Achilles, right Clinical Information: Subjective: Pt. Reports that she continues to have constant throbbing currently 11/13 and increases with ambulating and standing t/o the day to max at end of day. Objective Completed US to decrease discomfort and to reduce heel spur. Followed with 4 way ankle tomaintain ROM. Completed toe scrunches to increase intrinsic strength for stabilization. Ended with IASTM to reduce tension. Treatments: Physical Therapy Exercise Log - 11/22/19 5756 OTHER Precautions/Contraindications *goes by Bella (Pended) Notes right heel spur and achilles tendinitis. (Pended) Vitals 700-738 (Pended) Therapeutic Exercise (74080) Intervention Ankle 4 way x1 min each (Pended) Parameters Toe curls 2min x2 (Pended) Intervention STM lat ankle x8min (Pended) Additional Exercises Add more exercises? Yes (Pended) Modalities Parameters US right lateral foot heel 20% 1.0w/cm2 8 minutes (Pended) Goals: Physical Therapy Ortho Goals: MOBILITY: Patient will be able to ambulate on even surfaces without difficulty in 4 weeks. IMPAIRMENT: Improve AROM of Right Ankle Eversion from 5 degrees to 10 degrees in 4 weeks. OTHER: Patient will increase FOTO score from 31 to at least 54 to show MDC/MCII and expected functional outcome in 4 weeks. OTHER: Patient will be able to properly demonstrate independence with HEP in 4 weeks. Patient Education: Verbal HEP and Pain Management with patient demonstrated understanding. Post-Treatment Pain Scale: 3 Assessment: Initiated session with US to reduce discomfort and heel spur. Followed with 4 way ankleAROM to maintain ROM. Followed with instructing pt. With toe crunches to increase strength and stability. Completed IASTM to reduce tissue tension to reduce discomfort. Pt. Reported little change in sx following treatment. Patient had an expected response to treatment. Skilled Intervention demonstrated by modifications of treatment per exercise log including decreased cueing and safety interventions per exercise log. Progress towards goals as expected. Plan for Next Visit: Continue to progress patient as tolerated to increase strength, ROM, and endurance to improve functional mobility to meet and maintain goals to return to [facility]. Radha Armijo PTA STATE LICENSE, [id number] documented in this encounter* Lisandro Trujillo PT - 03/25/2020 11:41 AM EDT Called patient to follow-up since holding therapy sessions d/t COVID-19. Pt states that she does not believe PT is going to heal her foot and that she does not wish to return. PT POC to be D/C'd at this time. documented in this encounter Assessments Diagnosis Left wrist pain- Primary Pain in joint, forearm Diagnosis Calcaneal spur of right foot Tendonitis, Achilles, right Diagnosis Tendonitis, Achilles, right Diagnosis Back pain, unspecified back location, unspecified back pain laterality, unspecified chronicity- Primary Hx of spinal surgery Reason for Referral Status Reason Specialty Diagnoses / Procedures Referred By Contact Referred To Contact Authorized Neurosurgery Diagnoses Back pain, unspecified back location, unspecified back pain laterality, unspecified chronicity Hx of spinal surgery Dang Gutierrez, [address] [place] [address] Status Reason Specialty Diagnoses / Procedures Referred By Contact Referred To Contact Authorized Rehabilitation Diagnoses Achilles tendon injury, right, initial encounter Esequiel Rudolph MD [address] [place] [address] [address] [place] [address] [address] [place] [address] Specialty Diagnoses / Procedures Referred By Contac t Referred To Contact Rehabilitation Diagnoses Back pain, unspecified back location, unspecified back pain laterality, unspecified chronicity Dang Gutierrez, DO [address] [place] [address] [address] [place] [address] Referral ID Status Reason Start Date Expiration Date V isits Requested Visits Authorized [id number] Authorized 05/15/2021 05/15/2022 1 1 Specialty Diagnoses / Procedures Referred By Contac t Referred To Contact Neurology Diagnoses Lumbar spondylosis Neal Monroy MD [address] [facility] [address] [place] [address] Misael García MD [address] [facility] [address] [place] [address] Referral ID Status Reason Start Date Expiration Date V isits Requested Visits Authorized [id number] Authorized 08/25/2022 08/25/2023 1 1 Specialty Diagnoses / Procedures Referred By Contac t Referred To Contact Neurosurgery Diagnoses Radiculopathy, unspecified spinal region DDD (degenerative disc disease), cervical DDD (degenerative disc disease), lumbosacral Back pain, unspecified back location, unspecified back pain laterality, unspecified chronicity Escobar Gifford MD [address] [place] [address] Referral ID Status Reason Start Date Expiration Date V isits Requested Visits Authorized [id number] Authorized 11/17/2022 11/17/2023 1 1 Specialty Diagnoses / Procedures Referred By Contac t Referred To Contact Diagnoses Left hip pain Left leg pain Procedures Vascular duplex lower extremity arteries left Fariba Dow PA [address] [facility] [address] [place] [address] Referral ID Status Reason Start Date Expiration Date V isits Requested Visits Authorized [id number] Pending Review 05/04/2023 04/29/2024 1 1 Procedure Findings Note HNO ID: [id number] Author: Vandana Truong Service: Anesthesiology Author Type: Anesthesiologist Type: Anesthesia Procedure Notes Filed: 12/03/2020 10:36 AM Note Text: ANESTHESIOLOGY PROCEDURE NOTE Peripheral Nerve Block General Information Procedure Start Time/Medication Administration: 12/03/2020 9:57 AM Procedure End time: 12/03/2020 10:20 AM Patient location during procedure: pre-op Timeout Performed Pre-procedure: timeout performed (2450) Consent Obtained: Yes Patient identity confirmed: arm band, patient and care team supervisor Reason for block: post-op pain management/at surgeon's request Staffing Anesthesiologist: Greyson Truong Performed by: anesthesiologist Preparation Sterility Preparation: hand hygiene performed prior to procedure, surgical cap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
== END | disposition home or self-care (01) ==
LOC: MRI 10:41
PROVIDERS: PCP Internal Medicine; Referring Provider Orthopaedic Surgery Orthopaedic Surgery of the Spine; Visit Provider Orthopaedic Surgery Orthopaedic Surgery of the Spine
DX: M54.16 Radiculopathy, lumbar region (principal)
CPT/HCPCS: 72158; A9575

== ENCOUNTER → 2024-05-25 | Outpatient (CLI) | payer BC, SELFPAY ==
[2024-05-25 14:30] LABS: Amphetamine Urine VISTA NEGATIVE (<1000 ng/mL); Barbiturate Urine VISTA NEGATIVE (< 200 ng/mL); Benzodiazepine Urine VISTA NEGATIVE (< 200 ng/mL); Cocaine Urine VISTA NEGATIVE (< 300 ng/mL); Ecstacy Urine VISTA NEGATIVE (< 500 ng/mL); Methadone Urine VISTA NEGATIVE (< 300 ng/mL); PCP Urine VISTA NEGATIVE (< 25 ng/mL); THC Urine VISTA NEGATIVE (< 50 ng/mL); Vista UDS pH Range 7
== END | disposition home or self-care (01) ==
PROVIDERS: PCP Internal Medicine; Referring Provider Anesthesiology Pain Medicine; Visit Provider Anesthesiology Pain Medicine
DX: F11.20 Opioid dependence, uncomplicated (principal)
CPT/HCPCS: 80307

== ENCOUNTER → 2025-04-03 | Outpatient (CLI) | payer BC, SELFPAY ==
[2025-04-03 11:38] LABS: Barbiturate Urine NEGATIVE (< 200 ng/mL); Benzodiazepine Urine NEGATIVE (< 200 ng/mL); PCP Urine NEGATIVE (< 25 ng/mL); THC Urine NEGATIVE (< 50 ng/mL)
== END | disposition home or self-care (01) ==
PROVIDERS: PCP Internal Medicine; Referring Provider Anesthesiology Pain Medicine; Visit Provider Anesthesiology Pain Medicine
DX: F11.20 Opioid dependence, uncomplicated (principal)
CPT/HCPCS: 80307